=== PATIENT | female | born 1990 | race Caucasian/White ===

== ENCOUNTER 2016-03-13 20:04 | Emergency (ER) | payer BC ==
[2016-03-13] MEDS ORDERED: EPINEPHRINE INJ/PF 1 MG/1 ML AMPULE ONE ×2 (20:12→20:59)
[2016-03-13] MEDS ORDERED: PROCHLORPERAZINE EDISYLATE INJ 10 MG/2 ML VIAL ONE (20:21)
[2016-03-13] MEDS ORDERED: FAMOTIDINE INJ/PF 20 MG/2 ML SDV IV ONE ×2 (20:22)
[2016-03-13] MEDS ORDERED: DIPHENHYDRAMINE HCL 50 MG/ML VIAL ONE (20:22)
[2016-03-13] MEDS ORDERED: MORPHINE SULFATE 10 MG/ML INJ ONE ×2 (20:30→23:27)
--- NOTE | 2016-03-13 20:42 | ER Document Report ---
ED General - General Stated Complaint: POSSIBLE ALLERGIC REACTION Cannot obtain history due to: Unstable vital signs Notes: Patient is a 25-year-old female with past history of severe anaphylaxis secondary to peanuts who presents in anaphylactic shock. Patient was eating at a restaurant for her 's birthday when she abruptly developed hives, vomiting, and severe shortness of breath. She self-administered 2 epinephrine pens with minimal improvement of her symptoms. EMS inserted an epinephrine infusion which is moderately improved patient's shortness of breath and altered mental status. History is otherwise limited at time of arrival due to patient' s critical condition at time of arrival. - Related Data Allergies/Adverse Reactions: peanut Allergy (Verified 03/13/16 22:39) Past Medical History - General Information source: Patient, Emergency Med Personnel - Social History Smoking Status: Never Smoker Frequency of alcohol use: None Drug Abuse: None Lives with: Spouse/Significant other Family History: Reviewed & Not Pertinent Review of Systems - Review of Systems Notes: Limited secondary to patient's clinical condition HENT: Positive for throat pain Eyes: Negative for visual changes. Cardiovascular: Positive for chest pain. Respiratory: Positive for shortness of breath. Gastrointestinal: Positive for vomiting Skin: Positive for urticaria now resolved Neurological: Positive for headaches, negative for weakness or numbness. 10 point ROS negative except as marked above and in HPI. Physical Exam - Vital signs Vitals: Resp BP Pulse Ox 17 155/100 H 100 03/13/16 20:13 03/13/16 20:13 03/13/16 20:13 Interpretation: Hypertensive, Tachycardic, Tachypneic Notes: PHYSICAL EXAMINATION: GENERAL: Severely ill in appearance, in severe distress with shallow respirations, unable to phonate HEAD: Atraumatic, normocephalic. EYES: Pupils equal round and reactive to light, extraocular movements intact, sclera anicteric, conjunctiva are normal. ENT: No oropharyngeal edema Dry mucous membranes. NECK: Normal range of motion, supple without lymphadenopathy. Faint stridor LUNGS: Scattered wheezing in all lung hurd both inspiration and expiration. Tight air movement bilaterally. HEART: Regular tachycardia without murmurs ABDOMEN: Soft, nontender, normoactive bowel sounds. No guarding, no rebound. No masses appreciated. EXTREMITIES: Normal range of motion, no pitting or edema. No cyanosis. NEUROLOGICAL: No focal neurological deficits. Moves all extremities spontaneously and on command. PSYCH: Appropriately anxious given situation SKIN: Warm, Dry, normal turgor, no rashes or lesions noted. Course - Re-evaluation Re-evalutation: 03/13/16 20:10 Patient arrives, pale, diaphoretic, actively vomiting, start of this with wheezing and tight air movement bilaterally. She received 0.9 mg of IM epinephrine prior to arrival and an epinephrine drip containing a total of 1 mg of epinephrine was administered. This drip discontinued just prior to arrival and patient arrives decompensated from her improved status per EMS. Patient did have a run a super ventricular tachycardia during her epinephrine infusion. Based on patient's clinical appearance at time of arrival, tight air movement bilaterally, and hypertension, I mixed a epinephrine drip at the bedside 1 g per mL and opened this on the patient wide open. Patient had a rear seat Solu- Medrol prior to arrival. She had taken oral Benadryl and has vomited this up so 50 mg of IV Benadryl as well as 40 mg of IV famotidine given. IV fluids were initiated. A separate chest x-ray was obtained to exclude a foreign body in airway given that patient was currently eating at time of onset of symptoms. No evidence of obstruction or foreign body. Patient had an EKG performed as ST depressions were visible on the monitor. This does show diffuse ST depressions in multiple leads concerning for ischemia in the setting of a large amount of epinephrine. I attempted to discontinue the epinephrine infusion due to these findings and patient's relative clinical improvement that she rapidly became hypotensive again requiring restarting epinephrine infusion. 2039-due to clinical improvement, epinephrine infusion was again discontinued. After less than 5 minutes of discontinuation of the pleural effusion patient's blood pressure again dropped into the 90s systolic and she became more altered. Increased wheezing and decreased air movement noted. Epinephrine infusion restarted. She is currently receiving an epinephrine nebulizer. She remains critically ill at this time but is continuing to protect her airway and does not have any evidence of oral pharyngeal edema at this time. 03/13/16 20:59 Formal epinephrine drip will be started at this time. Patient remains stable at this time on a continuous infusion of approximately take 2 mcg/m although this would be more formally established momentarily after formal infusion is started. Patient and her updated on her ongoing critical status. 03/13/16 22:29 Patient appears dramatically improved at this time. Her drip is at 5 at this time but will be down titrated to. Airways clear, no wheezing or tight movement. Blood pressure normal and she no longer has any ST depressions on alarm security or surveillance monitor. Repeat EKG will be obtained. 03/13/16 22:33 Troponin is elevated at 1.2. Patient denies any chest pain. EKG changes improved at this time but continues to show ST depressions in V3-5. Patient is maintaining BP and work of breathing at this time on 2 mcg/min. I spoke with cardiology at [facility], [facility]) who does not feel patient needs to come to a cardiology service. I agree and think she would be best served on medical service with cardiolgoy consult. I also spoke with the ICU attending. 03/14/16 01:41 Transport has arrived. Patient continues to be hemodynamically stable on 2mcg/ min. Stable for transport at this time. - Vital Signs Vital signs: Temp Pulse Resp BP Pulse Ox 98.7 F 26 H 109/70 98 03/13/16 23:35 03/14/16 01:31 03/14/16 01:31 03/14/16 01:31 - Laboratory Result Diagrams: 03/13/16 21:20 03/13/16 21:20 Laboratory results interpreted by me: 03/13/16 03/13/16 03/13/16 20:16 21:20 21:20 WBC 29.3 H Hgb 11.6 L Hct 34.9 L Plt Count 582 H Seg Neuts % (Manual) 87 H Lymphocytes % (Manual) 9 L Abs Neuts (Manual) 25.5 H Potassium 3.0 L* Chloride 108 H Glucose 175 H POC Glucose 169 H - Diagnostic Test Radiology reviewed: Image reviewed, Reports reviewed Radiology results interpreted by me: 03/13/16 22:53 Chest x-ray: No acute infiltrate or foreign body - EKG Interpretation by Me Additional EKG results interpreted by me: 03/14/16 03:33 Sinus tachycardia. Rate 108. ST depressions in V4 through 5. QTC 467. Critical Care Note - Critical Care Note Total time excluding time spent on procedures (mins): 95 Comments: Critical care time spent obtaining history from patient or surrogate, discussions with consultants, development of treatment plan with patient or surrogate, evaluation of patient's response to treatment, examination of patient , ordering and performing treatments and interventions, ordering and review of laboratory studies, re-evaluation of patient's condition, ordering and review of radiographic studies and review of old charts Discharge - Discharge Clinical Impression: NSTEMI (non-ST elevated myocardial infarction) Anaphylactic shock Qualifiers: Encounter type: initial encounter Qualified Code(s): T78.2XXA - Anaphylactic shock, unspecified, initial encounter Condition: Critical Disposition: [facility]
[2016-03-13 21:50] LABS: HEMATOCRIT 34.9 % (36.0-47.0); HEMOGLOBIN 11.6 g/dL (12.0-15.5); HGB HCT DIFFERENCE -0.1; MEAN CORPUSCULAR HEMOGLOBIN 27.2 pg (27.0-33.4); MEAN CORPUSCULAR HGB CONC 33.3 g/dL (32.0-36.0); MEAN CORPUSCULAR VOLUME 82 fl (80-97); RED BLOOD COUNT 4.28 10^6/uL (3.72-5.28); RED CELL DISTRIBUTION WIDTH 13.4 % (11.5-14.0); WHITE BLOOD COUNT 29.3 10^3/uL (4.0-10.5)
[2016-03-13 22:03] LABS: BASOPHILS % (MANUAL) 0 % (0-2); EOSINOPHILS % (MANUAL) 0 % (0-6); LYMPHOCYTES % (MANUAL) 9 % (13-45); TOTAL CELLS COUNTED 100
[2016-03-13 22:04] LABS: TOXIC GRANULATION SLIGHT
[2016-03-13 22:06] LABS: BLOOD UREA NITROGEN 11 mg/dL (7-20); CARBON DIOXIDE 22 mmol/L (22-30); CHLORIDE 108 mmol/L (98-107); CREATININE RESULT 0.59 mg/dL (0.52-1.25)
[2016-03-13 22:07] LABS: ANION GAP 15 (5-19); CALCIUM 8.5 mg/dL (8.4-10.2); GLUCOSE 175 mg/dL (75-110); SODIUM 144.9 mmol/L (137-145)
[2016-03-14] MEDS ORDERED: KETOROLAC TROMETHAMINE INJ/PF 30 MG/1 ML SDV ONE (01:06)
[2016-03-14 01:33] VITALS: BP 109/70
[2016-03-14] MEDS ORDERED: HYDROMORPHONE HCL INJ/PF 2 MG/ML AMPULE IV ONE (01:42)
--- NOTE | 2016-03-14 15:01 | EKG REPORT ---
SEVERITY:- ABNORMAL ECG - SINUS TACHYCARDIA MULTIPLE ATRIAL PREMATURE COMPLEXES ABERRANT COMPLEX REPOL ABNRM, PROBABLE ISCHEMIA, DIFFUSE LEADS : Confirmed by: Dutch Chacon 14-Mar-2016 15:00:33
--- NOTE | 2016-03-14 15:01 | EKG REPORT ---
SEVERITY:- ABNORMAL ECG - SINUS TACHYCARDIA REPOL ABNRM SUGGESTS ISCHEMIA, DIFFUSE LEADS : Confirmed by: Dutch Chacon 14-Mar-2016 15:00:22
== END 2016-03-14 01:30 | disposition short-term general hospital (02) ==
LOC: MERGE 20:04 → ER 20:04
DX: I21.4 Non-ST elevation (NSTEMI) myocardial infarction (principal); T78.2XXA Anaphylactic shock, unspecified, initial encounter; L50.9 Urticaria, unspecified; R06.02 Shortness of breath
CPT/HCPCS: 93005; 96376; 99291; 99292; 96372; 51701; 51702; 96374; 96375; 36415; 82962; 85025; 81025; 80048; 84484; 71010; 93010; J1200; J0171; J1885; J2270; J1170; J0780; S0028

== ENCOUNTER 2016-05-30 17:31 | Emergency (ER) | payer BC ==
[2016-05-30 17:36] VITALS: BP 124/80
--- NOTE | 2016-05-30 17:39 | ER Document Report ---
ED Medical Screen (RME) - General Chief Complaint: Cyst Stated Complaint: POSSIBLE CYST ABOVE LEFT EYE Notes: Patient here with cyst above left eye for about 3 days. Had one above right eye in past which had an odd bacteria which required her to see an infectious disease doctor in [place]. Complains of pain, redness and swelling to area. I have greeted and performed a rapid initial assessment of this patient. A comprehensive ED assessment and evaluation of the patient, analysis of test results and completion of the medical decision making process will be conducted by additional ED providers. TRAVEL OUTSIDE OF THE [place] IN LAST 30 DAYS: No - Related Data Allergies/Adverse Reactions: tree nut [Tree Nut] Allergy (Severe, Verified 08/17/14 20:36) banana [Banana] Allergy (Unknown, Verified 08/14/14 08:25) latex [Latex] Allergy (Verified 08/14/14 08:25) RASH? UNKNOWN peanut Allergy (Verified 03/13/16 22:39) Penicillins Allergy (Verified 08/14/14 08:25) Sulfa (Sulfonamide Antibiotics) Allergy (Verified 08/14/14 08:25) unknown peanuts Allergy (Severe, Uncoded 08/17/14 20:36) Past Medical History Pulmonary Medical History: Reports: Hx Asthma, Hx Pneumonia Neurological Medical History: Renal/ Medical History: Reports: Hx Kidney Stones, Hx Ovarian Cysts Musculoskeltal Medical History: Reports Hx Musculoskeletal Trauma Psychiatric Medical History: Reports: Hx Anxiety, Hx Bipolar Disorder, Hx Depression Traumatic Medical History: Reports: Hx Fractures, Hx Pneumothorax Past Surgical History: Reports: Hx Abdominal Surgery, Hx Cholecystectomy, Hx Nose Surgery - sinus, Hx Oral Surgery - Immunizations Immunizations up to date: Yes Hx Diphtheria, Pertussis, Tetanus Vaccination: Yes Physical Exam - Vital signs Vitals: Temp Pulse Resp BP Pulse Ox 98.2 F 79 20 124/80 99 05/30/16 17:36 05/30/16 17:36 05/30/16 17:36 05/30/16 17:36 05/30/16 17:36 - Skin Notes: Red swollen area noted at left bridge of nose. Course - Vital Signs Vital signs: Temp Pulse Resp BP Pulse Ox 98.2 F 79 20 124/80 99 05/30/16 17:36 05/30/16 17:36 05/30/16 17:36 05/30/16 17:36 05/30/16 17:36
[2016-05-30] MEDS ORDERED: DOXYCYCLINE HYCLATE 100 MG TABLET PO ONE (19:44)
[2016-05-30] MEDS ORDERED: CEPHALEXIN 500 MG CAPSULE PO ONE (19:44)
[2016-05-30] MEDS ORDERED: HYDROCODONE/ACETAMINOPHEN 5-325 MG 6 TAB/DSPK PO PRN (19:45)
--- NOTE | 2016-05-30 19:49 | ER Document Report ---
ED General - General Chief Complaint: Cyst Stated Complaint: POSSIBLE CYST ABOVE LEFT EYE Notes: Patient is a 25-year-old female who presents with concerns of increasing pain to the left superior portion of her nose with pain radiating around the left eye. States she's had similar symptoms in the past and she's had postorbital cellulitis that often start secondary to her having cystic acne. She has not done anything to try to treat her symptoms. Touching the area worsens the pain which she does describes a constant, severe, stabbing pain. Denies any change to her vision. No vomiting, fever or altered mental status. She has not seen her primary care doctor regarding today's concerns. TRAVEL OUTSIDE OF THE [place] IN LAST 30 DAYS: No - Related Data Allergies/Adverse Reactions: tree nut [Tree Nut] Allergy (Severe, Verified 05/30/16 18:50) banana [Banana] Allergy (Unknown, Verified 05/30/16 18:50) latex [Latex] Allergy (Verified 05/30/16 18:50) RASH? UNKNOWN peanut Allergy (Verified 05/30/16 18:50) Penicillins Allergy (Verified 05/30/16 18:50) Quinolones Allergy (Verified 05/30/16 18:50) Sulfa (Sulfonamide Antibiotics) Allergy (Verified 05/30/16 18:50) unknown peanuts Allergy (Severe, Uncoded 05/30/16 18:50) Past Medical History - General Information source: Patient - Social History Smoking Status: Never Smoker Chew tobacco use (# tins/day): No Frequency of alcohol use: None Drug Abuse: None Lives with: Spouse/Significant other Family History: Arthritis, Malignancy, CAD, CVA, DM, Hyperlipidemia, Hypertension, Reviewed & Not Pertinent, Thyroid Disfunction Patient has suicidal ideation: No Patient has homicidal ideation: No Pulmonary Medical History: Reports: Hx Asthma, Hx Pneumonia Neurological Medical History: Renal/ Medical History: Reports: Hx Kidney Stones, Hx Ovarian Cysts. Denies: Hx Peritoneal Dialysis Musculoskeltal Medical History: Reports Hx Musculoskeletal Trauma Psychiatric Medical History: Reports: Hx Anxiety, Hx Bipolar Disorder, Hx Depression Traumatic Medical History: Reports: Hx Fractures, Hx Pneumothorax Past Surgical History: Reports: Hx Abdominal Surgery, Hx Cholecystectomy, Hx Nose Surgery - sinus, Hx Oral Surgery - Immunizations Immunizations up to date: Yes Hx Diphtheria, Pertussis, Tetanus Vaccination: Yes Review of Systems - Review of Systems Notes: Constitutional: Negative for fever. HENT: Negative for sore throat. Eyes: Positive for pain on the left eye Cardiovascular: Negative for chest pain. Respiratory: Negative for shortness of breath. Gastrointestinal: Negative for abdominal pain, vomiting or diarrhea. Genitourinary: Negative for dysuria. Musculoskeletal: Negative for back pain. Skin: Negative for rash. Neurological: Negative for headaches, weakness or numbness. 10 point ROS negative except as marked above and in HPI. Physical Exam - Vital signs Vitals: Temp Pulse Resp BP Pulse Ox 98.2 F 79 20 124/80 99 05/30/16 17:36 05/30/16 17:36 05/30/16 17:36 05/30/16 17:36 05/30/16 17:36 Interpretation: Normal Notes: PHYSICAL EXAMINATION: GENERAL: Well-appearing, well-nourished and in no acute distress. HEAD: Atraumatic, normocephalic. EYES: Pupils equal round and reactive to light, extraocular movements intact, no proptosis sclera anicteric, conjunctiva are normal. No proptosis. ENT: nares patent, oropharynx clear without exudates. Moist mucous membranes. NECK: Normal range of motion, supple without lymphadenopathy LUNGS: Breath sounds clear to auscultation bilaterally and equal. No wheezes rales or rhonchi. HEART: Regular rate and rhythm without murmurs ABDOMEN: Soft, nontender, normoactive bowel sounds. No guarding, no rebound. No masses appreciated. EXTREMITIES: Normal range of motion, no pitting or edema. No cyanosis. NEUROLOGICAL: No focal neurological deficits. Moves all extremities spontaneously and on command. PSYCH: Normal mood, normal affect. SKIN: Warm, Dry, normal turgor, there is a small raised, cystic lesion on the superior portion of the left nasal bridge with some mild surrounding erythema. Course - Re-evaluation Re-evalutation: 05/30/16 19:45 Patient presents with a cystic lesion that appears to be resulting in a cellulitis spreading around the left periorbital region consistent with a mild periorbital cellulitis. No orbital involvement, proptosis, conjunctival injection. Extraocular motions are intact. No evidence of entrapment. Pupillary response is normal. Patient was started on cephalexin and doxycycline to cover for both MRSA and strep. At this time will discharge with return precautions and follow-up recommendations. Verbal discharge instructions given a the bedside and opportunity for questions given. Medication warnings reviewed. Patient is in agreement with this plan and has verbalized understanding of return precautions and the need for primary care follow-up in the next 24-72 hours. - Vital Signs Vital signs: Temp Pulse Resp BP Pulse Ox 98.2 F 79 20 124/80 99 05/30/16 17:36 05/30/16 17:36 05/30/16 17:36 05/30/16 17:36 05/30/16 17:36 Discharge - Discharge Clinical Impression: Periorbital cellulitis Qualifiers: Laterality: left Qualified Code(s): L03.213 - Periorbital cellulitis Condition: Good Disposition: HOME, SELF-CARE Additional Instructions: The rash is likely due to infection of your skin. You need to take the antibiotics as prescribed. Do not stop even if the rash goes away until you have completed all the antibiotics. You need to return to emergency department if the redness spreads outside of this area by more than 2 cm in any direction. You should also return if you develop fevers with temperature greater than 101 , you develop worsening of the swelling around her eye, persistent vomiting, worsening pain, or have any other symptoms that are concerning to you. Prescriptions: Cephalexin Monohydrate [Keflex 500 mg Capsule] 500 mg PO QID #28 capsule Doxycycline Hyclate 100 mg PO BID #14 capsule Referrals: GALILEO SILVA PA-C [Primary Care Provider] - Follow up in 3-5 days
== END 2016-05-30 20:20 | disposition home or self-care (01) ==
LOC: ER 17:31
DX: L03.213 Periorbital cellulitis (principal)
CPT/HCPCS: 99282

== ENCOUNTER 2016-08-02 21:00 | Observation (INO) | payer BC ==
[2016-08-02] MEDS ORDERED: NORMAL SALINE 1000 ML 1,000 ML IV ONE (21:56)
--- NOTE | 2016-08-02 22:25 | ER Document Report ---
ED General - General Chief Complaint: Overdose Stated Complaint: POSSIBLE OVERDOSE Time Seen by Provider: 08/02/16 21:53 Mode of Arrival: Ambulatory Information source: Patient, Relative Notes: This is a 25-year-old female who presents with altered mental status. Majority of the history is obtained from the as patient is confused. Patient has been states that when he left to go to work this morning patient seemed fine although she had been up most of the night. Around noon he received a phone call from the patient's sister stating she was concerned because the patient was slurring her words and seemed confused. He then called the patient and told her to lay down and sleep it off. He states that this has happened before when she is taking too much medication and he thought she would be fine by just sleeping. He returned home at 1600 and noticed that she was still altered and talking out of her head. He states that he then had to run a few errands and she was left alone and could have possibly taken more medication, he is not sure. He states that this has happened multiple times in the past with overdose. He does not believe that she intends to harm herself with the overdose but he is not sure. Patient denies overdose however she is unable to complete a train of thought. She is confused. She talks about being in high school and multiple other stories which patient's says are nonsense and did not make sense. Patient denies any pain. She has had no nausea or vomiting. She is on multiple prescription medications to include Prozac, trazodone, Lamictal, diazepam, OxyContin, Joice, clonidine, and Phenergan. Of these medications it appears that the Phenergan, clonidine, and diazepam were filled 2 days ago and have many pills missing. TRAVEL OUTSIDE OF THE [place] IN LAST 30 DAYS: No - Related Data Allergies/Adverse Reactions: tree nut [Tree Nut] Allergy (Severe, Verified 05/30/16 18:50) banana [Banana] Allergy (Unknown, Verified 05/30/16 18:50) latex [Latex] Allergy (Verified 05/30/16 18:50) RASH? UNKNOWN peanut Allergy (Verified 05/30/16 18:50) Penicillins Allergy (Verified 05/30/16 18:50) Quinolones Allergy (Verified 05/30/16 18:50) Sulfa (Sulfonamide Antibiotics) Allergy (Verified 05/30/16 18:50) unknown peanuts Allergy (Severe, Uncoded 05/30/16 18:50) Home Medications: Current Home Medications Chlorzoxazone 500 mg PO BID PRN 08/03/16 [History] Clonidine HCl [Clonidine HCl] 0.1 mg PO TID PRN 08/03/16 [History] Diazepam [Diazepam] 5 mg PO TID PRN 08/03/16 [History] Diphenhydramine HCl [Banophen] 25 mg PO DAILY PRN 08/03/16 [History] Promethazine HCl [Promethazine HCl] 25 mg PO Q6H PRN 08/03/16 [History] Trazodone HCl 50 mg PO QHS 08/03/16 [History] Past Medical History - Social History Smoking Status: Unknown if Ever Smoked Chew tobacco use (# tins/day): No Frequency of alcohol use: None Drug Abuse: None Family History: Arthritis, Malignancy, CAD, CVA, DM, Hyperlipidemia, Hypertension, Reviewed & Not Pertinent, Thyroid Disfunction Pulmonary Medical History: Reports: Hx Asthma, Hx Pneumonia Neurological Medical History: Renal/ Medical History: Reports: Hx Kidney Stones, Hx Ovarian Cysts. Denies: Hx Peritoneal Dialysis Musculoskeltal Medical History: Reports Hx Musculoskeletal Trauma Psychiatric Medical History: Reports: Hx Anxiety, Hx Bipolar Disorder, Hx Depression Traumatic Medical History: Reports: Hx Fractures, Hx Pneumothorax Past Surgical History: Reports: Hx Abdominal Surgery, Hx Cholecystectomy, Hx Nose Surgery - sinus, Hx Oral Surgery - Immunizations Immunizations up to date: Yes Hx Diphtheria, Pertussis, Tetanus Vaccination: Yes Review of Systems - Review of Systems -: Yes ROS unobtainable due to patient's medical condition Physical Exam - Vital signs Vitals: Temp Pulse Resp BP Pulse Ox 97.5 F 97 20 98/58 L 100 08/02/16 21:16 08/02/16 21:16 08/02/16 21:16 08/02/16 21:16 08/02/16 21:16 - Notes Notes: PHYSICAL EXAMINATION: GENERAL: Alert adult female who is conversant but confused. No acute distress HEAD: Atraumatic, normocephalic. EYES: Pupils equal round and reactive to light, extraocular movements intact, sclera anicteric, conjunctiva are normal. ENT: nares patent, Moist mucous membranes. NECK: Normal range of motion, supple without lymphadenopathy LUNGS: Breath sounds clear to auscultation bilaterally and equal. No wheezes rales or rhonchi. HEART: Regular rate and rhythm without murmurs ABDOMEN: Soft, nontender, normoactive bowel sounds. EXTREMITIES: Normal range of motion NEUROLOGICAL: alert and oriented to person. She knows she is in a hospital, but cannot state the city. She appears confused and has difficulty keeping train of thought. Motor +5/5 bilateral upper and lower extremities. PSYCH: denies suicidal ideation, no AVH SKIN: Warm, Dry, normal turgor, no rashes or lesions noted. Course - Re-evaluation Re-evalutation: 08/03/16 02:28 Patient reexamined. She has remained hemodynamically stable although her systolic blood pressure has remained in the 90s. She is still confused and per her family is still acting altered. She has difficulty completing her train of thought. She is still unable to tell me how many pills and knows what medication she took today and is also unable to explain the missing pills. She does deny suicidal ideation or intent - Vital Signs Vital signs: Temp Pulse Resp BP Pulse Ox 97.5 F 97 18 92/65 L 98 08/02/16 21:16 08/02/16 21:16 08/03/16 02:00 08/03/16 02:00 08/03/16 02:00 - Laboratory Result Diagrams: 08/02/16 22:15 08/02/16 22:15 Laboratory results interpreted by me: 08/02/16 08/02/16 22:15 22:15 Hgb 11.4 L Hct 34.2 L Salicylates < 1.0 L Acetaminophen < 10 L Discharge - Discharge Clinical Impression: Medication overdose Qualifiers: Encounter type: initial encounter Injury intent: undetermined intent Qualified Code(s): T50.904A - Poisoning by unspecified drugs, medicaments and biological substances, undetermined, initial encounter Altered mental status Qualifiers: Altered mental status type: disorientation Qualified Code(s): R41.0 - Disorientation, unspecified Condition: Stable Disposition: ADMITTED INPATIENT Admitting Provider: Hospitalist - Dr. Jean Unit Admitted: ICU
[2016-08-02 22:33] LABS: ABSOLUTE LYMPHOCYTES (AUTO) 1.6 10^3/uL (0.5-4.7); ABSOLUTE MONOCYTES (AUTO) 0.7 10^3/uL (0.1-1.4); ABSOLUTE NEUT (AUTO) 5.4 10^3/uL (1.7-8.2); BASOPHILS % (AUTO) 0.6 % (0-2); EOSINOPHILS % (AUTO) 0.3 % (0-6); HEMATOCRIT 34.2 % (36.0-47.0); HEMOGLOBIN 11.4 g/dL (12.0-15.5); LYMPHOCYTES % (AUTO) 20.3 % (13-45); MEAN CORPUSCULAR HEMOGLOBIN 28.2 pg (27.0-33.4); MEAN CORPUSCULAR HGB CONC 33.4 g/dL (32.0-36.0); MEAN CORPUSCULAR VOLUME 84 fl (80-97); RED BLOOD COUNT 4.05 10^6/uL (3.72-5.28); RED CELL DISTRIBUTION WIDTH 13.9 % (11.5-14.0); SEGMENTED NEUTROPHILS % (AUTO) 69.8 % (42-78); WHITE BLOOD COUNT 7.7 10^3/uL (4.0-10.5)
[2016-08-02 22:42] LABS: PROTHROMBIN TIME 11.6 SEC (11.4-15.4)
[2016-08-02 22:43] LABS: PARTIAL THROMBOPLASTIN TIME 28.3 SEC (23.5-35.8)
[2016-08-02 22:46] LABS: ALANINE AMINOTRANSFERASE 44 U/L (9-52); ALKALINE PHOSPHATASE 72 U/L (38-126); ANION GAP 12 (5-19); ASPARTATE AMINO TRANSFERASE 22 U/L (14-36); BILIRUBIN,DIRECT 0.3 mg/dL (0.0-0.4); BILIRUBIN,TOTAL 0.3 mg/dL (0.2-1.3); BLOOD UREA NITROGEN 10 mg/dL (7-20); CALCIUM 9.1 mg/dL (8.4-10.2); CARBON DIOXIDE 25 mmol/L (22-30); CHLORIDE 103 mmol/L (98-107); CREATINE KINASE 35 U/L (30-135); CREATININE RESULT 0.57 mg/dL (0.52-1.25); GLUCOSE 98 mg/dL (75-110); MAGNESIUM 1.8 mg/dL (1.6-2.3); POTASSIUM 3.7 mmol/L (3.6-5.0); TOTAL PROTEIN 6.8 g/dL (6.3-8.2)
[2016-08-02 22:47] LABS: ALCOHOL < 10 mg/dL (NONE DETECTED)
--- NOTE | 2016-08-02 22:54 | RADIOLOGY REPORT (SQ) ---
EXAM DESCRIPTION: CHEST SINGLE VIEW COMPLETED DATE/TIME: 08/02/2016 10:23 pm REASON FOR STUDY: overdose, AMS COMPARISON: 05/11/2015 EXAM PARAMETERS: NUMBER OF VIEWS: One view. TECHNIQUE: Single frontal radiographic view of the chest acquired. RADIATION DOSE: NA LIMITATIONS: None. FINDINGS: LUNGS AND PLEURA: No opacities, masses or pneumothorax. No pleural effusion. MEDIASTINUM AND HILAR STRUCTURES: No masses. Contour normal. HEART AND VASCULAR STRUCTURES: Heart normal in size. Normal vasculature. BONES: No acute findings. HARDWARE: None in the chest. OTHER: No other significant finding. IMPRESSION: NO ACUTE RADIOGRAPHIC FINDING IN THE CHEST. TECHNICAL DOCUMENTATION: JOB ID: [id number]
[2016-08-02 23:52] LABS: APPEARANCE,URINE CLEAR; BILIRUBIN,URINE NEGATIVE (NEGATIVE); GLUCOSE, URINE NEGATIVE (NEGATIVE); KETONES,URINE NEGATIVE (NEGATIVE); LEUKOCYTE ESTERASE,URINE NEGATIVE (NEGATIVE); NITRITE,URINE NEGATIVE (NEGATIVE); PROTEIN,URINE NEGATIVE (NEGATIVE); UROBILINOGEN,URINE NEGATIVE mg/dL (<2.0)
[2016-08-03 00:06] LABS: URINE BARBITURATES SCREEN NEGATIVE; URINE METHADONE SCREEN NEGATIVE; URINE OPIATES LOW NEGATIVE; URINE PHENCYCLIDINE SCREEN NEGATIVE
[2016-08-03] MEDS ORDERED: NORMAL SALINE 1000 ML 1,000 ML IV ONE (03:05)
[2016-08-03 03:31] LABS: ADD ON TESTING BLD IN LAB ACKNOWLEDGE
[2016-08-03 03:55] LABS: VENOUS BLOOD BASE EXCESS -0.5 mmol/L; VENOUS BLOOD HCO3 24.6 mmol/L (20-32); VENOUS BLOOD PCO2 42.2 mmHg (35-63); VENOUS BLOOD PH 7.38 (7.30-7.42)
[2016-08-03] MEDS ORDERED: MAG HYDROX/AL HYDROX/SIMETH SUSP 30 ML UDCUP PO PRN (04:38)
[2016-08-03] MEDS ORDERED: ACETAMINOPHEN 325 MG TABLET PO PRN (04:38)
[2016-08-03] MEDS ORDERED: IPRATROPIUM/ALBUTEROL 0.5-2.5 MG/3 ML AMPUL NEB PRN (04:38)
[2016-08-03] MEDS ORDERED: POTASSI CL 20 MEQ/D5NS 1L 1,000 ML IV PRN (04:38)
[2016-08-03 05:20] LABS: ABSOLUTE LYMPHOCYTES (AUTO) 1.4 10^3/uL (0.5-4.7); ABSOLUTE MONOCYTES (AUTO) 0.5 10^3/uL (0.1-1.4); BASOPHILS % (AUTO) 0.3 % (0-2); EOSINOPHILS % (AUTO) 0.6 % (0-6); HEMATOCRIT 29.6 % (36.0-47.0); HGB HCT DIFFERENCE 0.4; LYMPHOCYTES % (AUTO) 23.2 % (13-45); MEAN CORPUSCULAR HEMOGLOBIN 28.4 pg (27.0-33.4); MEAN CORPUSCULAR HGB CONC 33.7 g/dL (32.0-36.0); MEAN CORPUSCULAR VOLUME 84 fl (80-97); MONOCYTES % (AUTO) 8.8 % (3-13); RED BLOOD COUNT 3.51 10^6/uL (3.72-5.28); RED CELL DISTRIBUTION WIDTH 14.2 % (11.5-14.0); SEGMENTED NEUTROPHILS % (AUTO) 67.1 % (42-78)
[2016-08-03 05:34] LABS: ANION GAP 9 (5-19); BLOOD UREA NITROGEN 9 mg/dL (7-20); CALCIUM 8.2 mg/dL (8.4-10.2); CARBON DIOXIDE 22 mmol/L (22-30); CHLORIDE 110 mmol/L (98-107); CREATININE RESULT 0.51 mg/dL (0.52-1.25); GLUCOSE 83 mg/dL (75-110); POTASSIUM 3.8 mmol/L (3.6-5.0); SODIUM 140.8 mmol/L (137-145)
--- NOTE | 2016-08-03 05:41 | PDOC H&P ---
History of Present Illness Admission Date/PCP: 08/03/16 03:20 GALILEO MEEHAN Patient complains of: AMS History of Present Illness: BERNICE DAVENPORT is a 25 year old female with underlying bipolar disorder , anxiety and depression, but repeatedly by her account, no thoughts of hurting herself or others, who presents to the emergency room for evaluation of above complaint. Patient has been discussed with emergency room physician who evaluated the patient. Patient herself is somewhat altered in her speech, with slight slurring of speech, and does not remember the events over the last 24 hours or so that led her to being brought to the emergency room, but seems to provide accurate information related to chronic health issues, family history etc. is present at her side, with her approval, and agrees with the majority of her statements and answers to basic questions. She reportedly had been up most of the evening on August 01. However, when left to go to work the morning of the , she seemed fine. Approximately noon on the , he received a call from the patient's sister stating that the patient was slurring her words and seemed confused. He called the patient and told her to lie down and "sleep it off." This reportedly has happened a number of times in the past when she has taken "too much medication; " he felt she would be "fine by just sleeping." He returned home at 4 PM and noticed that she was still confused and "talking out of her head." Of note, these are statements made by the emergency room physician in her notes. States he had to run a few errands and left her alone. States she possibly could have taken more medication, but he was not sure. There has been some nausea but no vomiting. No fever or chills. No diarrhea or dysuria. Blood pressures have been in the low to upper 90s, but have risen acceptably with 2 L bolus of saline. Patient is uncertain as to exactly which medication she did take. Medication bottles were brought to the hospital, including a prescription for 5 mg of diazepam, filled on the first of this month, #21 tablets, empty; clonidine, 0.1 mg tablets filled on the first of this month, #21 tablets, with only 7 remaining ; and Phenergan 25 mg tablets #30 filled on the first of this month, with only 18 left. Diazepam schedule 1 p.o. 3 times daily as needed. Clonidine prescription is for 1 tablet 3 times daily as needed. Phenergan prescription is for 1 tablet every 6 hours as needed. Prescription medications also include chlorzoxazone 500 mg twice daily as needed #60 filled July 15, 2016, empty. OxyContin 15 mg 1 p.o. every 12 hours # 60 refill July 08, 2016, empty. [place] 5-325 1 p.o. twice daily as needed #60 filled July 15, 2016, empty. Other bottles include Prozac 40 mg 1 p.o. nightly #60 filled July 18, 2016, with 45 tablets left. Trazodone 50 mg p.o. nightly #30 filled July 18, 2016, #15 left. Lamotrigine, which patient takes for her bipolar disorder, 200 mg p.o. nightly #30 filled July 18, 2016, #15 left. Patient does have a distant history of an intentional overdose while in college . She has never been involuntarily committed. Of interest, patient and were in [facility] [place] [facility] 9 days ago. She fell "3 times,", with patient subsequently taken to the emergency room at [facility] with complaints of chest pain. According to , there was concern that she was having a cardiac problem and she was transferred subsequently from [facility] emergency room to [facility] in [place]. She stayed there approximately 36 hours and had a number of tests, including echocardiogram which were all reportedly negative. Did not have a cardiac stress test. states patient was given a prescription for Dilaudid by the [facility] emergency room, but it was "never filled." Still having anterior chest pain that she experienced after falling, as noted above. Laboratory results are listed in [facility] [employer] and are reviewed. X-ray summary results are listed below, with full report(s) reviewed. EKG reviewed. Social history/personal habits: . No children. Unemployed. No use of alcohol tobacco or illicit drugs. Allergies/adverse reactions are listed in [employer] and are reviewed. Home medications initially autopopulated into [facility] may not accurately reflect patient's true medications, dosages, and/or frequencies. Nursing staff to reconcile medications. REVIEW OF SYSTEMS: Constitutional: No fever or chills. Eyes: Wears glasses ENT: No swallowing problems or complaints. Denies hearing loss. Pulmonary: No current complaints. Cardiovascular: See history and present illness. Gastrointestinal: See history and present illness. Skin: No current complaints, including rashes. Hematologic: Easy bruising. Neurologic: No current complaints, including numbness or tingling. Musculoskeletal: No current or chronic joint complaints, such as arthritis. Psychiatric: Notes mild anxiety and depression. Again, denies any thoughts of hurting herself or others. Endocrine: No current complaints, including polyuria. Genitourinary: No current complaints, including dysuria. PHYSICAL EXAMINATION: 5 feet tall. 70.1 kg. BMI 30.2 kg/m. Blood pressure 102/71. Pulse 83 and regular. 100% saturation on room air. Respirations are 19 and unlabored. Temperature 97.5. Slightly overweight otherwise well-nourished well-developed female, appearing approximately her stated age. Awake, though slight slurring of speech. Cooperative. is present at her side; patient approves. Female emergency room nurse [place] is present. Skin is warm and dry. No grossly obvious evidence of rash in areas of skin examined. No subcutaneous nodules palpated. ENT: Hearing grossly normal to normal conversation. Tongue midline on protrusion pink and slightly tacky. Eyes: No scleral icterus. Pupils equal and reactive to light at 6 mm. One [place] conjunctivae. No raccoon eyes. Neck is supple and nontender to gentle active range of motion and palpation. Midline trachea. No palpable thyroid nodule mass enlargement or tenderness. Lymphatic: No palpable cervical or clavicular nodes. Neck and lymphatic exams limited by patient body habitus. Psychiatric: Reasonable insight into chronic medical issues. Oriented to time location, but again, does not remember the events that led her to being brought to the emergency room. Lungs: Auscultation reveals clear and equal breath sounds bilaterally. No use of accessory respiratory muscles. Cardiovascular: Heart regular rate and rhythm, without gallop murmur or rub. No carotid or abdominal aortic bruits. No ankle or pedal edema. Faintly palpable dorsalis pedis pulses. Abdomen:soft slightly obese nontender with positive bowel sounds. Unable to adequately evaluate abdomen for masses or organomegaly due to body habitus. Compression of both her upper abdomen and sternum reproduces her previously noted chest discomfort. Extremities: Hands and feet are warm and dry. No calf tenderness to compression. No grossly obvious visual evidence of calf swelling. Gentle manipulation of upper and lower extremities fails to reveal any obvious evidence of injury or instability to involved major joints. Neurologic: Cranial Nerves II through XII are grossly intact. Light touch intact at face, upper and lower extremities. Motor function of major muscle groups upper and lower extremities 5 over 5 and symmetric. Patellar reflexes absent. Absent Babinski. No rigidity. No nystagmus. No ankle clonus. Past Medical History Cardiac Medical History: Reports: Myocardial Infarction - Previous "type II" ID. Denies: Congestive Heart Failure, DVT, Hyperlipidema, Hypertension, Pulmonary Embolism Pulmonary Medical History: Reports: Asthma, Pneumonia Denies: Chronic Obstructive Pulmonary Disease (COPD), Sleep Apnea EENT Medical History: Reports: Eyes - Glasses Denies: Ears, Throat Neurological Medical History: Reports: Seizures - Seizure 2 at 15 years of age , never on antiepileptic. Denies: Hemorrhagic CVA, Ischemic CVA Endocrine Medical History: Denies: Diabetes Mellitus Type 1, Diabetes Mellitus Type 2, Hyperthyroidism, Hypothyroidism Renal/ Medical History: Reports: Nephrolithiasis - History of same., Other - Occasional bladder infection. GI Medical History: Denies: Cirrhosis, Gastroesophageal Reflux Disease, Hepatitis, Peptic Ulcer Disease Musculoskeltal Medical History: Reports: Arthritis Skin Medical History: Reports: None Psychiatric Medical History: Reports: Bipolar Disorder, Depression, General Anxiety Disorder Denies: Alcohol Dependency, Substance Abuse - Illicit drugs., Tobacco Dependency Traumatic Medical History: Reports: Pneumothorax Hematology: Reports: Other - Easy bruising Denies: Anemia Infectious Medical History: Denies: Clostridium Difficile, Hepatitis B, Hepatitis C, Methicillin- Resistant Staph Aureus Past Surgical History Past Surgical History: Reports: Cholecystectomy Social History Information Source: Patient, Relative - , Emergency Med Personnel, [facility] Records Lives with: Spouse/Significant other Smoking Status: Unknown if Ever Smoked Hx Recreational Drug Use: No Drugs: None Hx Prescription Drug Abuse: Yes - Suspected. - Advance Directive Resuscitation Status: Full Code Surrogate healthcare decision maker:: Family History Family History: Arthritis, Malignancy, CAD, CVA, DM, Hyperlipidemia, Hypertension, Reviewed & Not Pertinent, Thyroid Disfunction Parental Family History Reviewed: Yes - Father healthy. Mother hypertension. Children Family History Reviewed: NA Sibling(s) Family History Reviewed.: Yes - Brother with severe peanut allergy. Medication/Allergy Home Medications: RX: Acetaminophen [Tylenol 325 mg Tablet] 650 mg PO Q4HP PRN tablet 08/03/16 RX: Diazepam [Valium 5 mg Tablet] 5 mg PO Q8HP PRN 08/03/16 RX: Diphenhydramine HCl [Benadryl 25 mg Capsule] 25 mg PO Q6HP PRN 08/03/16 RX: Fluoxetine HCl [Prozac] 80 mg PO QHS 08/03/16 RX: Lamotrigine [Lamictal] 200 mg PO QHS 08/03/16 RX: Promethazine HCl [Phenergan 25 mg Tablet] 25 mg PO Q6HP PRN 08/03/16 RX: Trazodone HCl [Desyrel 50 mg Tablet] 50 mg PO QHS 08/03/16 Allergies/Adverse Reactions: tree nut [Tree Nut] Allergy (Severe, Verified 05/30/16 18:50) banana [Banana] Allergy (Unknown, Verified 05/30/16 18:50) latex [Latex] Allergy (Verified 05/30/16 18:50) RASH? UNKNOWN peanut Allergy (Verified 05/30/16 18:50) Penicillins Allergy (Verified 05/30/16 18:50) Quinolones Allergy (Verified 05/30/16 18:50) Sulfa (Sulfonamide Antibiotics) Allergy (Verified 05/30/16 18:50) unknown peanuts Allergy (Severe, Uncoded 05/30/16 18:50) Physical Exam Vital Signs: Temp Pulse Resp BP Pulse Ox 97.5 F 97 18 92/65 L 98 08/02/16 21:16 08/02/16 21:16 08/03/16 02:00 08/03/16 02:00 08/03/16 02:00 Results Laboratory Results: 08/03/16 03:42 VBG pH 7.38 VBG pCO2 42.2 VBG HCO3 24.6 VBG Base Excess -0.5 Impressions: Chest X-Ray 08/02/16 21:57 IMPRESSION: NO ACUTE RADIOGRAPHIC FINDING IN THE CHEST. Assessment & Plan - Diagnosis (1) Acute encephalopathy Is this a current diagnosis for this admission?: YesPlan: Likely secondary to medication overdose, but will check CT scan of brain without contrast also. (2) Medication overdose Qualifiers: Encounter type: initial encounter Injury intent: undetermined intent Qualified Code(s): T50.904A - Poisoning by unspecified drugs, medicaments and biological substances, undetermined, initial encounter Is this a current diagnosis for this admission?: YesPlan: Intensive care unit admission. IVC papers have been drawn up by emergency room physician. Psychiatric consult; both patient and are aware of this consult and did not dispute this plan. I have strongly encouraged patient not to get out of bed without notifying staff , to avoid a fall with injury. Knee high SCDs for DVT prophylaxis, along with subcutaneous Lovenox. Impression and plans were discussed with patient and , both of whom concur. Time spent in evaluation and management of patient: 72 minutes. (3) Precordial chest pain Is this a current diagnosis for this admission?: YesPlan: Likely musculoskeletal, from a fall approximately a week or so ago, but will obtain total of 3 troponins. (4) Bipolar disorder Qualifiers: Active/Remission status: remission status unspecified Qualified Code (s): F31.9 - Bipolar disorder, unspecified Is this a current diagnosis for this admission?: YesPlan: Resume home medications as appropriate once these have been determined and reviewed. - Inpatient Certification Based on my medical assessment, after consideration of the patient's comorbidities, presenting symptoms, or acuity I expect that the services needed warrant INPATIENT care.: Yes I certify that my determination is in accordance with my understanding of Medicare's requirements for reasonable and necessary INPATIENT services [42 CFR 412.3e].: Yes Medical Necessity: Significant Comorbidiites Make Outpatient Treatment Too Risky , Need Close Monitoring Due to Risk of Patient Decompensation, Need For IV Fluids, Need For Continuous Telemetry Monitoring, Risk of Complication if Not Cared For in Hospital Post Hospital Care: D/C or Transfer Summary
--- NOTE | 2016-08-03 05:44 | RADIOLOGY REPORT (SQ) ---
EXAM DESCRIPTION: CT HEAD WITHOUT COMPLETED DATE/TIME: 08/03/2016 5:31 am REASON FOR STUDY: ams COMPARISON: CT head 02/15/2016, 10/22/2010. TECHNIQUE: Axial images acquired through the brain without intravenous contrast. Images reviewed wi th bone, brain and subdural windows. Images stored on PACS. All CT scanners at this facility use dose modulation, iterative reconstruction, and/or weight based d osing when appropriate to reduce radiation dose to as low as reasonably achievable (ALARA). [facility]: Dose Right [facility]: CareDose [facility]: Dose Right [facility]: Teradose 4D [facility]: Snugg Home RADIATION DOSE: 64.61 mGy. LIMITATIONS: None. FINDINGS: VENTRICLES: Normal size and contour. CEREBRUM: No mass effect. No hemorrhage. No midline shift. Normal hauser/white matter differentiatio n. No evidence for acute territorial infarction. CEREBELLUM: No hemorrhage. No alteration of density. No evidence for acute infarction. EXTRAAXIAL SPACES: No fluid collections. ORBITS AND GLOBE: Symmetrical contour of globe without masses. CALVARIUM: No depressed fracture. PARANASAL SINUSES: No air-fluid level. Mucous retention cyst/polyp in the left maxillary sinus. SOFT TISSUES: No hematoma. IMPRESSION: No acute intracranial hemorrhage or acute territorial infarct. TECHNICAL DOCUMENTATION: JOB ID: [id number] [facility] Quality ID # [id number]: Final reports with documentation of one or more dose reduction techniques (e.g., Au tomated exposure control, adjustment of the mA and/or kV according to patient size, use of iterative reconstruction technique) 2010 [employer]- All Rights Reserved
[2016-08-03] MEDS ORDERED: ENOXAPARIN SODIUM INJ 40 MG/0.4 ML DISP.SYRIN SUBCUT SCH (08:00)
--- NOTE | 2016-08-03 09:38 | EKG REPORT ---
SEVERITY:- NORMAL ECG - SINUS RHYTHM : Confirmed by: Dutch Chacon 03-Aug-2016 09:37:38
[2016-08-03] MEDS ORDERED: DOCUSATE SODIUM 100 MG CAPSULE PO SCH (10:00)
--- NOTE | 2016-08-03 11:41 | Progress Note ---
Provider Note Provider Note: pt admitted early this morning under IVC for probable drug overdose with unknown intent and hx of suicide attempt in past. I observed her resting quietly in bed, hemodynamically stable, communicating with nursing and participating in her care, calm and cooperative at present. a/p: polypharmacy with drug OD, unclear intent - continue supportive care. continue IVC until mental health can evaluate further. Query of her narcotic history made and shows monthly refills of valium, norco, oxycontin and zolpidem apparently under the care of PA at [place] [facility].
[2016-08-03] MEDS ORDERED: OXYCODONE HCL IR 5 MG TABLET PO PRN (14:13)
[2016-08-03] MEDS ORDERED: DIPHENHYDRAMINE HCL 50 MG CAPSULE PO PRN (14:13)
[2016-08-03] MEDS ORDERED: MORPHINE SULFATE 10 MG/ML INJ IV PRN (14:13)
[2016-08-03 16:13] VITALS: BP 107/71
--- NOTE | 2016-08-03 17:18 | PSYCHOLOGICAL NOTE ---
Psych Note - Psych Note Psych Note: This is a 25-year-old female who presents with altered mental status. Majority of the history is obtained from the as patient is confused. Patient has been states that when he left to go to work this morning patient seemed fine although she had been up most of the night. Around noon he received a phone call from the patient's sister stating she was concerned because the patient was slurring her words and seemed confused. He then called the patient and told her to lay down and sleep it off. He states that this has happened before when she is taking too much medication and he thought she would be fine by just sleeping. He returned home at 1600 and noticed that she was still altered and talking out of her head. Patient states that she has had "some depression" however she states that she does not think of suicide at all. Patient adamantly denies attempting suicide. Patient states that she does not remember being upset about anything. She continued to disclose the last and she does remember was provided for. Patient states that she does receive mental health services through Dr. Walter in [place]. She used to go [place]. [place] [facility] after she had discovered a heart condition she was referred to [place]. She states she takes Prozac, trazodone, Lamictal, and Xanax as needed. Patient spoke with patient's Rene at [phone], he discloses that he does not believe his is suicidal. He continued disclosed to have a possible substance abuse issue. He states that she has started going to a pain doctor in [place] and have gotten much worse. He continued disclosed concern that she may not see that she is misusing her medications. Patient has agreed to allow her control of the medication time. Patient is also agreed to stop seeing pain management at her 's request. He continued disclosed the patient has shown substance misuse in the fact that she picks and chooses which medications she takes; multiple bottles were empty that were new prescriptions or had many missing pills missing however prescriptions such as Benadryl had no pills missing. Patient is alert and orientated to person place time. Patient does disclose some confusion on circumstance but states she does know that patient. Mood is euthymic with congruent affect. Patient denies suicidal and homicidal ideation. Patient denies auditory visual hallucinations; no behavior is noted that would be congruent with responding to internal stimuli. Noted. Thought process is currently organized and linear. Conversational speech is quiet. Eye contact was fair. Intellectual abilities appear to be within average range. Attention and concentration are fair. Insight, judgment, impulse control are poor. 311 (F32.9) unspecified depressive disorder history provided by pain Polysubstance Impression\\plan: Patient is recommended for rescind of IVC and considered psychiatrically clear for discharge. Patient no longer meet IVC criteria per [place] GS 122C. Patient denies suicidal ideation and states current overdose was accidental. Patient to allow her control of her medication and at her 's request will be discontinuing pain management. Dr. Dacosta was consulted and the care and management of this patient; attending physician in agreement with recommendations and disposition
--- NOTE | 2016-08-03 17:43 | PDOC DISCHARGE SUMMARY ---
General - Admit/Disc Date/PCP Admission Date/Primary Care Provider: 08/03/16 04:38 Discharge Date: 08/03/16 - Additional Information Resuscitation Status: Full Code Discharge Diet: As Tolerated Discharge Activity: Activity As Tolerated Home Medications: Acetaminophen [Tylenol 325 mg Tablet] 650 mg PO Q4HP PRN tablet 08/03/16 Diazepam [Valium 5 mg Tablet] 5 mg PO Q8HP PRN 08/03/16 Diphenhydramine HCl [Benadryl 25 mg Capsule] 25 mg PO Q6HP PRN 08/03/16 Fluoxetine HCl [Prozac] 80 mg PO QHS 08/03/16 Lamotrigine [Lamictal] 200 mg PO QHS 08/03/16 Promethazine HCl [Phenergan 25 mg Tablet] 25 mg PO Q6HP PRN 08/03/16 Trazodone HCl [Desyrel 50 mg Tablet] 50 mg PO QHS 08/03/16 History of Present Illness Patient complains of: altered mental state History of Present Illness: This is a 25-year-old female who presents with altered mental status. Majority of the history is obtained from the as patient is confused. Patient has been states that when he left to go to work this morning patient seemed fine although she had been up most of the night. Around noon he received a phone call from the patient's sister stating she was concerned because the patient was slurring her words and seemed confused. He then called the patient and told her to lay down and sleep it off. He states that this has happened before when she is taking too much medication and he thought she would be fine by just sleeping. He returned home at 1600 and noticed that she was still altered and talking out of her head. Hospital Course Hospital Course: from other's notes: "Patient states that she has had "some depression" however she states that she does not think of suicide at all. Patient adamantly denies attempting suicide. Patient states that she does not remember being upset about anything. She continued to disclose the last and she does remember was provided for. Patient states that she does receive mental health services through Dr. Walter in [place]. [place] [facility] [place] after she had discovered a heart condition she was referred to [place]. She states she takes Prozac, trazodone, Lamictal, and Xanax as needed. Patient spoke with patient's Rene at [phone], he discloses that he does not believe his is suicidal. He continued disclosed to have a possible substance abuse issue. He states that she has started going to a pain doctor in [place] and have gotten much worse. He continued disclosed concern that she may not see that she is misusing her medications. Patient has agreed to allow her control of the medication time. Patient is also agreed to stop seeing pain management at her 's request. He continued disclosed the patient has shown substance misuse in the fact that she picks and chooses which medications she takes; multiple bottles were empty that were new prescriptions or had many missing pills missing however prescriptions such as Benadryl had no pills missing. Patient is alert and orientated to person place time. Patient does disclose some confusion on circumstance but states she does know that patient. Mood is euthymic with congruent affect. Patient denies suicidal and homicidal ideation. Patient denies auditory visual hallucinations; no behavior is noted that would be congruent with responding to internal stimuli. Noted. Thought process is currently organized and linear. Conversational speech is quiet. Eye contact was fair. Intellectual abilities appear to be within average range. Attention and concentration are fair. Insight, judgment, impulse control are poor. 311 (F32.9) unspecified depressive disorder history provided by pain Polysubstance Impression\\plan: Patient is recommended for rescind of IVC and considered psychiatrically clear for discharge. Patient no longer meet IVC criteria per [place] GS 122C. Patient denies suicidal ideation and states current overdose was accidental. Patient to allow her control of her medication and at her 's request will be discontinuing pain management. Dr. Dacosta was consulted and the care and management of this patient; attending physician in agreement with recommendations and disposition" pt admitted early this morning under IVC for probable drug overdose with unknown intent and hx of suicide attempt in past. I observed her resting quietly in bed, hemodynamically stable, communicating with nursing and participating in her care, calm and cooperative at present. a/p: polypharmacy with drug OD, unclear intent - continue supportive care. continue IVC until mental health can evaluate further. Query of her narcotic history made and shows monthly refills of valium, norco, oxycontin and zolpidem apparently under the care of PA at [place] [facility]. ADDENDUM: patient is awake and alert and seems no to have suffered any ill effects from her polypharmacy, no ecg changes, no QTc prolongation, no hemodynamic compromise, no significant lab anl's. she reports left chest wall pain that she thinks is her Takutsobo's Cardiomyopathy that [facility] [place] in 03/2016. she reports a rather extensive medical history for a 25 y.o. including a reportedly clean cardiac cath 03/2016. her chest pain is reproducible on exam with palpation along the sternal border with radiating pain into her jaw and shoulder, normal ecg and normal cardiac enzymes. she reports anaphylaxis with complete respiratory collapse requiring intubation and mechanical ventilation x2 with life flights out of our facility to another as a result. she receives large doses of epinephrine that results in cardiac and/or pulmonary collapse requiring the above interventions. she is clear from a medical standpoint, no further investigation of her chest pain is warranted based on her history and physical exam findings. she is medically cleared for mental health evaluation at their earliest convenience, she doesn't warrant continued ICU status. and in fact no longer warrants inpatient management, she has no active medical condition and has now been cleared from mental health standpoint therefore she is stable for d/c home. I recommend weaning back some of her psychotropic meds and close outpt f/u with her psychiatrist in one week. return to the ED for worsening condition. NO Rx' s provided, instructed to f/u with her PCP and Psych for refills. Physical Exam Vital Signs: Temp Pulse Resp BP Pulse Ox 98.2 F 97 15 107/71 100 08/03/16 16:00 08/03/16 16:00 08/03/16 17:00 08/03/16 16:07 08/03/16 17:00 Intake & Output 08/02/16 08/03/16 08/04/16 06:59 06:59 06:59 Intake Total 90 Output Total 200 Balance -110 Weight 73 kg General appearance: PRESENT: no acute distress, well-developed, well-nourished Head exam: PRESENT: atraumatic, normocephalic Eye exam: ABSENT: conjunctival injection, scleral icterus Mouth exam: PRESENT: moist, neck supple Neck exam: ABSENT: tracheal deviation Respiratory exam: PRESENT: clear to auscultation rudi. ABSENT: accessory muscle use Cardiovascular exam: PRESENT: RRR. ABSENT: systolic murmur Extremities exam: ABSENT: pedal edema, tenderness Musculoskeletal exam: PRESENT: ambulatory, full ROM Neurological exam: PRESENT: alert, awake, oriented to time, oriented to situation Psychiatric exam: PRESENT: depressed, other - emotional Results Laboratory Results: 08/03/16 05:00 08/03/16 05:00 08/03/16 08/03/16 05:00 05:00 WBC 6.0 RBC 3.51 L Hgb 10.0 L Hct 29.6 L MCV 84 MCH 28.4 MCHC 33.7 RDW 14.2 H Plt Count 227 Seg Neutrophils % 67.1 Lymphocytes % 23.2 Monocytes % 8.8 Eosinophils % 0.6 Basophils % 0.3 Absolute Neutrophils 4.0 Absolute Lymphocytes 1.4 Absolute Monocytes 0.5 Absolute Eosinophils 0.0 Absolute Basophils 0.0 Sodium 140.8 Potassium 3.8 Chloride 110 H Carbon Dioxide 22 Anion Gap 9 BUN 9 Creatinine 0.51 L Est GFR ( Amer) > 60 Est GFR (Non-Af Amer) > 60 Glucose 83 Calcium 8.2 L 08/03/16 08/03/16 05:00 11:05 Troponin I < 0.012 < 0.012 Impressions: Chest X-Ray 08/02/16 21:57 IMPRESSION: NO ACUTE RADIOGRAPHIC FINDING IN THE CHEST. Head CT 08/03/16 00:00 IMPRESSION: No acute intracranial hemorrhage or acute territorial infarct. Qualifiers PATEINT BEING DISCHARGED WITH ANY OF THE FOLLOWING DIAGNOSIS?: No VTE patient discharged on overlapping Therapy?: No Reason(s) for not prescribing Overlap Therapy:: Not indicated Plan Discharge Plan: f/u PCP and psych Time Spent: Greater than 30 Minutes
[2016-08-03] MEDS ORDERED: LAMOTRIGINE 100 MG TABLET PO SCH (22:00)
[2016-08-03] MEDS ORDERED: FLUOXETINE HCL 20 MG CAPSULE PO SCH (22:00)
[2016-08-03] MEDS ORDERED: (PENDING PHARMACY ID) (Lamotrigine [Lamotrigine] 200 MG) PO SCH (22:00)
== END 2016-08-03 18:26 | disposition home or self-care (01) ==
LOC: ER 21:00 → EH 08-03 03:20 → UNDOADMIN 08-03 03:20 → EH 08-03 04:38 → INTOOBSV 08-03 04:38 → ICU 08-03 08:00
PROVIDERS: ADMIT Family Medicine; ATTEND Family Medicine
DX: T50.904A Poisoning by unspecified drugs, medicaments and biological substances, undetermined, initial encounter (principal); G93.40 Encephalopathy, unspecified; R07.2 Precordial pain; W19.XXXS Unspecified fall, sequela; R68.84 Jaw pain; M25.519 Pain in unspecified shoulder; I51.81 Takotsubo syndrome; F31.9 Bipolar disorder, unspecified; F41.1 Generalized anxiety disorder; I25.2 Old myocardial infarction; Z79.899 Other long term (current) drug therapy; Z79.891 Long term (current) use of opiate analgesic; Z90.49 Acquired absence of other specified parts of digestive tract; Z91.5 Personal history of self-harm; Z91.81 History of falling; Z87.828 Personal history of other (healed) physical injury and trauma; Z82.49 Family history of ischemic heart disease and other diseases of the circulatory system
CPT/HCPCS: 93005; 99285; 96360; 36415 ×2; 80307 ×4; 82550; 83735; 84443; 84703; 85025 ×2; 85610; 85730; 81025; 80048; 80053; 81001; 84484; 82803; 71010; 70450; 93010; J1650; J7030 ×2; G0378

== ENCOUNTER 2017-05-13 19:10 | Inpatient (IN) | payer BC ==
[2017-05-13] MEDS ORDERED: EPINEPHRINE INJ/PF 1 MG/1 ML AMPULE IM ONE (19:32)
[2017-05-13] MEDS ORDERED: RACEPINEPHRINE HCL 2.25% NEB 0.5 ML AMPUL NEB ONE (19:33)
[2017-05-13] MEDS ORDERED: DIPHENHYDRAMINE HCL 50 MG/ML VIAL ONE (19:34)
[2017-05-13] MEDS ORDERED: EPINEPHRINE INJ 30 MG/30 ML VIAL ONE (19:34)
[2017-05-13] MEDS ORDERED: FAMOTIDINE INJ/PF 20 MG/2 ML SDV IV ONE ×2 (19:35→20:45)
[2017-05-13] MEDS ORDERED: KETAMINE HCL INJ 500 MG/10 ML VIAL ONE ×2 (19:47→22:19)
[2017-05-13] MEDS ORDERED: MIDAZOLAM 2 MG/2 ML INJ ONE (19:47)
[2017-05-13] MEDS ORDERED: VECURONIUM BROMIDE INJ 10 MG VIAL IV ONE ×4 (20:02→21:14)
--- NOTE | 2017-05-13 20:31 | RADIOLOGY REPORT (SQ) ---
EXAM DESCRIPTION: CHEST SINGLE VIEW COMPLETED DATE/TIME: 05/13/2017 8:24 pm REASON FOR STUDY: ET PLACEMENT COMPARISON: None. EXAM PARAMETERS: NUMBER OF VIEWS: One view. TECHNIQUE: Single frontal radiographic view of the chest acquired. RADIATION DOSE: NA LIMITATIONS: None. FINDINGS: LUNGS AND PLEURA: Patchy infiltrate in the left lung. Right lung clear. MEDIASTINUM AND HILAR STRUCTURES: No masses. Contour normal. HEART AND VASCULAR STRUCTURES: Heart normal in size. Normal vasculature. BONES: No acute findings. HARDWARE: Endotracheal tube with the tip located 2 cm proximal to the jazmin. OTHER: No other significant finding. IMPRESSION: ENDOTRACHEAL TUBE APPEARS TO BE IN SATISFACTORY POSITION. INFILTRATE IN THE LEFT LUNG S USPICIOUS FOR PNEUMONIA. TECHNICAL DOCUMENTATION: JOB ID: [id number] [employer]- All Rights Reserved Reading location - IP/workstation name: [email or web address]
[2017-05-13] MEDS ORDERED: MIDAZOLAM HCL 50 MG/100 ML RTUINJ IV ONE (20:41)
[2017-05-13] MEDS ORDERED: NORMAL SALINE 1000 ML 1,000 ML IV ONE ×2 (20:44→20:45)
[2017-05-13] MEDS ORDERED: DIPHENHYDRAMINE HCL 50 MG/ML VIAL IV ONE (20:45)
[2017-05-13] MEDS ORDERED: MIDAZOLAM HCL 50 MG/100 ML RTUINJ IV PRN (20:46)
[2017-05-13] MEDS ORDERED: DEXTROSE 5%-WATER 250 ML with EPINEPHRINE/PF 1 MG IV PRN ×2 (20:48)
[2017-05-13 20:54] LABS: VENOUS BLOOD BASE EXCESS 1.6 mmol/L; VENOUS BLOOD HCO3 28.4 mmol/L (20-32); VENOUS BLOOD PCO2 53.8 mmHg (35-63); VENOUS BLOOD PH 7.34 (7.30-7.42)
[2017-05-13 20:58] LABS: ABSOLUTE BASOPHILS # (AUTO) 0.1 10^3/uL (0.0-0.2); ABSOLUTE EOSINOPHILS # (AUTO) 0.1 10^3/uL (0.0-0.6); ABSOLUTE LYMPHOCYTES (AUTO) 4.3 10^3/uL (0.5-4.7); ABSOLUTE MONOCYTES (AUTO) 1.2 10^3/uL (0.1-1.4); ABSOLUTE NEUT (AUTO) 11.1 10^3/uL (1.7-8.2); BASOPHILS % (AUTO) 0.4 % (0-2); EOSINOPHILS % (AUTO) 0.3 % (0-6); HEMOGLOBIN 12.8 g/dL (12.0-15.5); LYMPHOCYTES % (AUTO) 25.5 % (13-45); MEAN CORPUSCULAR HEMOGLOBIN 26.3 pg (27.0-33.4); MEAN CORPUSCULAR HGB CONC 32.7 g/dL (32.0-36.0); MEAN CORPUSCULAR VOLUME 80 fl (80-97); MONOCYTES % (AUTO) 7.1 % (3-13); PLATELET COUNT 652 10^3/uL (150-450); RED BLOOD COUNT 4.86 10^6/uL (3.72-5.28); RED CELL DISTRIBUTION WIDTH 14.7 % (11.5-14.0); SEGMENTED NEUTROPHILS % (AUTO) 66.7 % (42-78); TOTAL CELLS COUNTED % (AUTO) 100 %; WHITE BLOOD COUNT 16.7 10^3/uL (4.0-10.5)
--- NOTE | 2017-05-13 20:58 | RADIOLOGY REPORT (SQ) ---
EXAM DESCRIPTION: CHEST SINGLE VIEW COMPLETED DATE/TIME: 05/13/2017 8:50 pm REASON FOR STUDY: CENTRAL LINE / NG TUBE COMPARISON: 05/13/2017 at 2008 hours. EXAM PARAMETERS: NUMBER OF VIEWS: One view. TECHNIQUE: Single frontal radiographic view of the chest acquired. RADIATION DOSE: NA LIMITATIONS: None. FINDINGS: LUNGS AND PLEURA: Patchy infiltrate in the left lung unchanged. Right lung relatively suman ar. No pneumothorax. MEDIASTINUM AND HILAR STRUCTURES: No masses. Contour normal. HEART AND VASCULAR STRUCTURES: Heart normal in size. Normal vasculature. BONES: No acute findings. HARDWARE: Right-sided central line with the tip at the level of the right atrium. Nasogastric tube w ith the tip in the stomach. Endotracheal tube with the tip located 2 cm proximal to the jazmin. Cli ps in the upper abdomen. OTHER: No other significant finding. IMPRESSION: 1. LIFE LINES DESCRIBED. NO PNEUMOTHORAX FOLLOWING CENTRAL LINE PLACEMENT. 2. PATCHY INFILTRATE IN THE LEFT LUNG. TECHNICAL DOCUMENTATION: JOB ID: [id number] [employer]- All Rights Reserved Reading location - IP/workstation name: [email or web address]
[2017-05-13 21:02] LABS: ALANINE AMINOTRANSFERASE 27 U/L (9-52); ALBUMIN 4.5 g/dL (3.5-5.0); ALKALINE PHOSPHATASE 71 U/L (38-126); ANION GAP 17 (5-19); ASPARTATE AMINO TRANSFERASE 16 U/L (14-36); BILIRUBIN,DIRECT 0.2 mg/dL (0.0-0.4); BILIRUBIN,TOTAL 0.2 mg/dL (0.2-1.3); BLOOD UREA NITROGEN 16 mg/dL (7-20); CALCIUM 10.2 mg/dL (8.4-10.2); CARBON DIOXIDE 25 mmol/L (22-30); CHLORIDE 98 mmol/L (98-107); GLUCOSE 139 mg/dL (75-110); POTASSIUM 3.1 mmol/L (3.6-5.0); SODIUM 139.6 mmol/L (137-145); TOTAL PROTEIN 7.1 g/dL (6.3-8.2)
[2017-05-13] MEDS ORDERED: KETAMINE HCL INJ 500 MG/10 ML VIAL IV ONE ×2 (21:13→21:14)
--- NOTE | 2017-05-13 21:35 | ER Document Report ---
ED Allergic Reaction <SIMATED - Last Filed: 05/13/17 21:41> - General TRAVEL OUTSIDE OF THE [place] IN LAST 30 DAYS: No <TULIO HOUSTON - Last Filed: 05/13/17 23:18> - General Chief Complaint: Allergic Reaction Stated Complaint: POSSIBLE ALLERGIC REACTION Time Seen by Provider: 05/13/17 19:28 Notes: Patient is a 26-year-old female that comes emergency department for chief complaint of allergic reaction. She reports difficulty breathing, she was given 125 mg of Solu-Medrol by EMS and 25 mg Benadryl along with taking her own EpiPen at home and then being given another 1 by EMS. On evaluation patient has difficulty speaking, she is mouthing words, she is mouthing "help me", "can' t breathe", and indicating by pointing at her throat. Father at bedside, states that she was seen yesterday at [place], evaluated for tightness in her throat, given multiple medications, he states she did improve and then went home. He states she worsened again suddenly and this time she broke out into a rash over her body which is new. Father clarifies that patient has had 2 intubations in the past and one other admission where she was given some much epinephrine she had heart strain (most recent episode was last year). Patient has history of anxiety, father denies any depression, denies knowledge of her taking any recreational or nonprescribed substances. (TULIO HOUSTON) - Related Data Allergies/Adverse Reactions: tree nut [Tree Nut] Allergy (Severe, Verified 05/13/17 19:11) banana [Banana] Allergy (Unknown, Verified 05/13/17 19:11) latex [Latex] Allergy (Verified 05/13/17 19:11) RASH? UNKNOWN peanut Allergy (Verified 05/13/17 19:11) Penicillins Allergy (Verified 05/13/17 19:11) Quinolones Allergy (Verified 05/13/17 19:11) Sulfa (Sulfonamide Antibiotics) Allergy (Verified 05/13/17 19:11) unknown peanuts Allergy (Severe, Uncoded 05/13/17 19:11) Past Medical History - General Information source: Patient, Parent - Social History Smoking Status: Unknown if Ever Smoked Chew tobacco use (# tins/day): No Lives with: Family Family History: Arthritis, CAD, CVA, DM, Hyperlipidemia, Hypertension, Malignancy, Thyroid Disfunction Patient has suicidal ideation: No Patient has homicidal ideation: No - Past Medical History Cardiac Medical History: Reports: 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 Denies: Hx Congestive Heart Failure, Hx DVT, Hx Hypercholesterolemia, Hx Hypertension, Hx Pulmonary Embolism Pulmonary Medical History: Reports: Hx Asthma, Hx Pneumonia Denies: Hx COPD, Hx Sleep Apnea Neurological Medical History: Reports: Hx Seizures - Seizure 2 at 15 years of age, never on antiepileptic. Endocrine Medical History: Denies: Hx Diabetes Mellitus Type 1, Hx Diabetes Mellitus Type 2, Hx Hyperthyroidism, Hx Hypothyroidism Renal/ Medical History: Reports: Hx Kidney Stones, Hx Ovarian Cysts. Denies: Hx Peritoneal Dialysis GI Medical History: Denies: Hx Cirrhosis, Hx Gastroesophageal Reflux Disease, Hx Hepatitis Musculoskeltal Medical History: Reports Hx Arthritis, Reports Hx Musculoskeletal Trauma Psychiatric Medical History: Reports: Hx Anxiety, Hx Bipolar Disorder, Hx Depression Traumatic Medical History: Reports: Hx Fractures, Hx Pneumothorax Infectious Medical History: Denies: Hx C-Diff, Hx Hepatitis, Hx MRSA Past Surgical History: Reports: Hx Abdominal Surgery, Hx Cholecystectomy, Hx Nose Surgery - sinus, Hx Oral Surgery - Immunizations Immunizations up to date: Yes Hx Diphtheria, Pertussis, Tetanus Vaccination: Yes <TULIO HOUSTON - Last Filed: 05/13/17 23:18> Review of Systems - Review of Systems Constitutional: No symptoms reported EENT: See HPI Cardiovascular: No symptoms reported Respiratory: See HPI Gastrointestinal: No symptoms reported Genitourinary: No symptoms reported Female Genitourinary: No symptoms reported Musculoskeletal: No symptoms reported Skin: See HPI Hematologic/Lymphatic: No symptoms reported Neurological/Psychological: No symptoms reported <TULIO HOUSTON - Last Filed: 05/13/17 23:18> Physical Exam - General General appearance: Anxious In distress: Severe - HEENT Head: Normocephalic, Atraumatic Eyes: Normal Conjunctiva: Normal Extraocular movements intact: Yes Eyelashes: Normal Pupils: PERRL Sinus: Normal Nasal: Normal Mouth/Lips: Normal Pharynx: Other - There is erythema with questionable swelling in the pharynx, tongue is not swollen, ENT exam is otherwise unremarkable Neck: Normal - Respiratory Respiratory status: Respiratory distress, Labored, Tripod position Breath sounds: Decreased air movement, Wheezing - Cardiovascular Rhythm: Regular, Tachycardia Heart sounds: Normal auscultation, S1 appreciated, S2 appreciated - Abdominal Inspection: Normal Tenderness: Nontender. No: Tender, Guarding - Back Back: Normal, Nontender. No: Tender - Extremities General upper extremity: Normal inspection, Nontender, Normal strength, Normal temperature General lower extremity: Normal inspection, Nontender, Normal strength, Normal temperature. No: Edema - Neurological Cognition: Normal Orientation: AAOx4 Mcintyre Coma Scale Eye Opening: Spontaneous Mcintyre Coma Scale Verbal: Oriented Mcintyre Coma Scale Motor: Obeys Commands Mcintyre Coma Scale Total: 15 - Psychological Associated symptoms: Anxious - Skin Skin Temperature: Warm Skin Moisture: Dry Skin Color: Normal Skin irregularity: Rash - Scattered raised erythematous rash over the body, mainly the back <UTLIO HOUSTON - Last Filed: 05/13/17 23:18> - Vital signs Vitals: Resp Pulse Ox 17 99 05/13/17 19:14 05/13/17 19:14 Course - Laboratory Result Diagrams: 05/13/17 20:11 05/13/17 20:11 <TED JAVIER - Last Filed: 05/13/17 21:41> - Laboratory Result Diagrams: 05/13/17 20:11 05/13/17 20:11 <TULIO HOUSTON - Last Filed: 05/13/17 23:18> - Re-evaluation Re-evalutation: 05/13/17 21:41 Notified by MARIN Houston but the worsening condition of the patient with a acute allergic reaction. Patient was moved to the trauma room #1 without improvement in her status therefore the decision was made to intubate. Intubation and central line were performed by MARIN Houston I was at bedside witnessing/assisting during all procedures and highly involved in the management of this critical patient (TED JAVIER) On my initial evaluation patient gasping for air, has hot potato voice which quickly worsened and she lost ability to speak. She has very tight breath sounds. She has a generalized erythematous raised rash over the body. Patient was immediately given 0.3 mg of IM epinephrine, 25 mg more Benadryl, 20 mg Pepcid, Dr. Javier was notified and he came to bedside, patient was transferred over to the trauma bay. 05/13/17 Patient clearly with more difficulty breathing, she began to appear tired, she still cannot speak, she is not hypotensive. She is tachycardic but not hypoxic. Decision was made to preserve patient's airway because she is getting worn out. Dr. Javier at bedside. Patient was intubated, noted to have very swollen airway, slightly right mainstem, had to be backed up, central line placed, IV epinephrine drip placed. Patient's vital signs improved, she is maintaining well on the vent. 05/13/[address] Barrios, internal medicine, recommends lactic acid be repeated along with a drug screen because of patient's history of bipolar/depression/OD history. Lactic acid is downtrending. 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 Spoke to Dr. Barrios again, patient will be admitted to the ICU. (TULIO HOUSTON) - Vital Signs Vital signs: Temp Pulse Resp BP Pulse Ox 98.1 F 17 125/81 100 05/13/17 22:31 05/13/17 22:31 05/13/17 22:31 05/13/17 22:31 - Laboratory Laboratory results interpreted by me: 05/13/17 05/13/17 05/13/17 20:11 20:11 20:11 WBC 16.7 H MCH 26.3 L RDW 14.7 H Plt Count 652 H Absolute Neutrophils 11.1 H ABG pH ABG pO2 ABG O2 Saturation Potassium 3.1 L Glucose 139 H Lactic Acid 3.7 H Urine Ascorbic Acid Salicylates Acetaminophen 05/13/17 05/13/17 05/13/17 20:11 21:22 22:00 WBC MCH RDW Plt Count Absolute Neutrophils ABG pH 7.34 L ABG pO2 446.2 H ABG O2 Saturation 99.8 H Potassium Glucose Lactic Acid Urine Ascorbic Acid 40 H Salicylates < 1.0 L Acetaminophen < 10 L Procedures <TED JAVIER - Last Filed: 05/13/17 21:41> - Central Line Right Internal jugular Consent obtained: Yes - patient intubated, consent verbal by father Central line pre-insertion: Sterile PPE donned, Chloraprep applied Central line lumen type: Triple Ultrasound guided: Yes CM at insertion site: 12 Line secured with sutures: Yes Central line post-insertion: Blood return from lumens, Biopatch applied, Sutured , Sterile dressing applied, Position confirmed w/ CXR Number of attempts: 1 Complications: No - Intubation Orotracheal Airway evaluation: Other - The patient has a very anterior airway, airway is noted to be very swollen with large amount of soft tissue swelling around the vocal cords Mallampati Classification: Class 3 Medications: Versed, Ketamine Intubation method: Orotracheal Blade type: Destiny Blade size: 3 Equipment used: Glidescope ETT size: 7.0 ETT secured at: Teeth ETT secured at (cm): 23 Breath Sounds after Intubation: Equal End tidal CO2 confirmed: Yes Post Intubation Xray: Yes - Slight right mainstem, this was backed up to 23 cm <TULIO HOUSTON - Last Filed: 05/13/17 23:18> - Intubation Orotracheal Notes: Large amount of soft tissue swelling noted around the airway with edema, as result a bougie was used to intubate and then a 7.0 tube was placed over the bougie with success. Single attempt. Dr. Javier present during procedure. (TULIO HOUSTON) Critical Care Note <TED JAVIER - Last Filed: 05/13/17 21:41> - Critical Care Note Total time excluding time spent on procedures (mins): 60 - respiratory distress , anaphylaxis <TULIO HOUSTON - Last Filed: 05/13/17 23:18> - Critical Care Note Comments: Please allow 60 minutes of critical care time excluding time spent on procedures for management of critical patient with anaphylaxis, respiratory distress, requiring multiple medications, multiple re-evaluations, discussion with family members, admission to the ICU. I spent about 15 minutes speaking to the , family, discussing previous events, discussing current incident, and providing explanation to the best of my ability. (TULIO HOUSTON) Discharge <TED JAVIER - Last Filed: 05/13/17 21:41> - Discharge Admitting Provider: Hospitalist Unit Admitted: ICU <TULIO HOUSTON - Last Filed: 05/13/17 23:18> - Discharge Clinical Impression: Rash, Respiratory distress Anaphylaxis Qualifiers: Encounter type: initial encounter Qualified Code(s): T78.2XXA - Anaphylactic shock, unspecified, initial encounter Condition: Serious Disposition: ADMITTED INPATIENT
[2017-05-13] MEDS ORDERED: FENTANYL CITRATE INJ/PF 100 MCG/2 ML AMPUL IV ONE ×2 (21:37→22:15)
[2017-05-13 21:42] LABS: ACETAMINOPHEN < 10 ug/mL (10-30); ALCOHOL < 10 mg/dL (NONE DETECTED); SALICYLATE < 1.0 mg/dL (2.0-20.0)
[2017-05-13 21:53] LABS: APPEARANCE,URINE CLEAR; BILIRUBIN,URINE NEGATIVE (NEGATIVE); COLOR,URINE YELLOW; GLUCOSE, URINE NEGATIVE (NEGATIVE); KETONES,URINE NEGATIVE (NEGATIVE); LEUKOCYTE ESTERASE,URINE NEGATIVE (NEGATIVE); NITRITE,URINE NEGATIVE (NEGATIVE); PROTEIN,URINE NEGATIVE (NEGATIVE); URINE SPECIFIC GRAVITY 1.029; UROBILINOGEN,URINE NEGATIVE mg/dL (<2.0)
[2017-05-13 21:54] LABS: URINE AMPHETAMINES SCREEN NEGATIVE; URINE BARBITURATES SCREEN NEGATIVE; URINE BENZODIAZEPINES SCREEN UNCONFIRMED POSITIVE; URINE COCAINE SCREEN NEGATIVE; URINE MARIJUANA (THC) SCREEN NEGATIVE; URINE METHADONE SCREEN NEGATIVE; URINE PHENCYCLIDINE SCREEN NEGATIVE
[2017-05-13] MEDS ORDERED: FENTANYL CITRATE INJ/PF 100 MCG/2 ML AMPUL ONE (22:17)
[2017-05-13] MEDS ORDERED: ACETAMINOPHEN 325 MG TABLET NG PRN (22:22)
[2017-05-13] MEDS ORDERED: IPRATROPIUM/ALBUTEROL 0.5-2.5 MG/3 ML AMPUL NEB PRN (22:22)
[2017-05-13] MEDS ORDERED: DEXTROSE 5%-WATER 250 ML with NOREPINEPHRINE BITARTRATE 4 MG IV PRN ×2 (22:22)
[2017-05-13 22:33] LABS: ARTERIAL BLOOD BASE EXCESS -2.3 mmol/L; ARTERIAL BLOOD FIO2 100%; ARTERIAL BLOOD H2CO3 1.34 mmol/L (1.05-1.35); ARTERIAL BLOOD HCO3 23.5 mmol/L (20-26); ARTERIAL BLOOD O2 SATURATION 99.8 % (94-98); ARTERIAL BLOOD PCO2 44.5 mmHg (35-45); ARTERIAL BLOOD PH 7.34 (7.35-7.45); ARTERIAL BLOOD PO2 446.2 mmHg (80-100); ARTERIAL BLOOD TOTAL CO2 24.9 mmol/L (21-25)
[2017-05-13] MEDS ORDERED: PROPOFOL 100 ML IV ONE (22:48)
[2017-05-13] MEDS ORDERED: ARIPIPRAZOLE 5 MG TABLET NG SCH (23:00)
[2017-05-13] MEDS: IPRATROPIUM/ALBUTEROL 0.5-2.5 MG/3 ML AMPUL NEB SCH (23:37)
[2017-05-13] MEDS: POTASSI CL 20 MEQ/50 ML RIDER 20 MEQ/50 ML RTUPB IV SCH (23:56)
[2017-05-13] MEDS: NORMAL SALINE 1000 ML 1,000 ML IV SCH (23:57)
[2017-05-14] MEDS: MIDAZOLAM HCL 50 MG/100 ML RTUINJ IV PRN ×7 (02:19→20:18)
[2017-05-14] MEDS ORDERED: INFLUENZA ADLT QUAD (36MOS+) 2017-18 VAC 0.5 ML SYR IM PRN (02:55)
--- NOTE | 2017-05-14 02:57 | PDOC H&P ---
History of Present Illness Admission Date/PCP: 05/13/17 22:33 Patient complains of: Stridor and hives History of Present Illness: BERNICE DAVENPORT is a 26 year old female with a past medical history of depression, anxiety, chronic pain, severe allergies and recurrent anaphylaxis. Patient presents 12 hours after discharge from [facility] where she was treated for allergic reaction and discharged. She has subsequently had a return of symptoms with hives, difficulty speaking and swelling of the posterior pharynx. She self-administered an EpiPen, EMS administered additional epinephrine 1, Solu-Medrol and 25 mg of Benadryl. In the emergency room she is found to have stridor with erythema and narrowing of the posterior pharynx and subsequently intubated. She is placed a ventilator, IV epinephrine, Pepcid and Versed then referred to the hospitalist for admission. Patient is unable to provide history , father who was at bedside has now left. Past Medical History Cardiac Medical History: Reports: Myocardial Infarction - Previous "type II" CT. Denies: Congestive Heart Failure, DVT, Hyperlipidema, Hypertension, Pulmonary Embolism Pulmonary Medical History: Reports: Asthma, Pneumonia Denies: Chronic Obstructive Pulmonary Disease (COPD), Sleep Apnea Neurological Medical History: Reports: Seizures - Seizure 2 at 15 years of age , never on antiepileptic. Endocrine Medical History: Denies: Diabetes Mellitus Type 1, Diabetes Mellitus Type 2, Hyperthyroidism, Hypothyroidism GI Medical History: Denies: Cirrhosis, Gastroesophageal Reflux Disease, Hepatitis Musculoskeltal Medical History: Reports: Arthritis Skin Medical History: Reports: Other - Atopy Psychiatric Medical History: Reports: Bipolar Disorder, Depression, General Anxiety Disorder Traumatic Medical History: Reports: Pneumothorax Hematology: Denies: Anemia Infectious Medical History: Denies: Clostridium Difficile, Methicillin-Resistant Staph Aureus Past Surgical History Past Surgical History: Reports: Cholecystectomy Social History Information Source: Emergency Med Personnel, [facility] Records Lives with: Family Smoking Status: Unknown if Ever Smoked Frequency of Alcohol Use: None Hx Recreational Drug Use: No Hx Prescription Drug Abuse: Yes - Suspected. - Advance Directive Resuscitation Status: Full Code Family History Family History: Arthritis, CAD, CVA, DM, Hyperlipidemia, Hypertension, Malignancy, Thyroid Disfunction Parental Family History Reviewed: No - Unobtainable Children Family History Reviewed: No - Unobtainable Sibling(s) Family History Reviewed.: No - Unobtainable Medication/Allergy Home Medications: Diphenhydramine HCl [Benadryl 25 mg Capsule] 25 mg PO Q6HP PRN 08/03/16 Lamotrigine [Lamictal] 200 mg PO QHS 08/03/16 Bupropion HCl [Wellbutrin 75 mg Tablet] 75 mg PO BID 05/13/17 Carisoprodol [Soma 350 Mg Tablet] 350 mg PO TID 05/13/17 Etodolac 400 mg PO BID 05/13/17 Fluoxetine HCl 60 mg PO DAILY 05/13/17 Hydroxyzine HCl [Atarax 25 mg Tablet] 2 tab PO TID 05/13/17 Ondansetron [Zofran Odt] 8 mg PO Q6H 05/13/17 Propranolol HCl [Inderal 20 mg Tablet] 20 mg PO DAILY 05/13/17 Sumatriptan Succinate 6 mg SQ ASDIR PRN 05/13/17 Trazodone HCl 200 mg PO QHS 05/13/17 Allergies/Adverse Reactions: tree nut [Tree Nut] Allergy (Severe, Verified 05/13/17 19:11) banana [Banana] Allergy (Unknown, Verified 05/13/17 19:11) latex [Latex] Allergy (Verified 05/13/17 19:11) RASH? UNKNOWN peanut Allergy (Verified 05/13/17 19:11) Penicillins Allergy (Verified 05/13/17 19:11) Quinolones Allergy (Verified 05/13/17 19:11) Sulfa (Sulfonamide Antibiotics) Allergy (Verified 05/13/17 19:11) unknown peanuts Allergy (Severe, Uncoded 05/13/17 19:11) Review of Systems ROS unobtainable: Due to mental status - Intubated and sedated Physical Exam Vital Signs: Temp Pulse Resp BP Pulse Ox 99.3 F 107 H 14 132/93 H 100 05/14/17 01:48 05/14/17 01:22 05/14/17 01:22 05/14/17 01:22 05/14/17 01:22 Intake & Output 05/12/17 05/13/17 05/14/17 11:59 11:59 11:59 Output Total 1150 Balance -1150 Weight 72.6 kg General appearance: PRESENT: no acute distress, well-developed, well-nourished, other - Appears comfortable on vent with synchronized breathing Head exam: PRESENT: atraumatic, normocephalic Eye exam: PRESENT: conjunctiva pink, EOMI, PERRLA. ABSENT: scleral icterus Ear exam: PRESENT: normal external ear exam Mouth exam: PRESENT: moist, tongue midline Neck exam: ABSENT: carotid bruit, JVD, lymphadenopathy, thyromegaly Respiratory exam: PRESENT: clear to auscultation rudi. ABSENT: rales, rhonchi, wheezes Cardiovascular exam: PRESENT: RRR. ABSENT: diastolic murmur, rubs, systolic murmur Pulses: PRESENT: normal dorsalis pedis pul Vascular exam: PRESENT: normal capillary refill GI/Abdominal exam: PRESENT: normal bowel sounds, soft. ABSENT: distended, guarding, mass, organolmegaly, rebound, tenderness Rectal exam: PRESENT: deferred Extremities exam: PRESENT: full ROM. ABSENT: calf tenderness, clubbing, pedal edema Neurological exam: PRESENT: alert, awake, oriented to person, oriented to place , oriented to time, oriented to situation, CN II-XII grossly intact. ABSENT: motor sensory deficit Psychiatric exam: PRESENT: appropriate affect, normal mood. ABSENT: homicidal ideation, suicidal ideation Skin exam: PRESENT: dry, intact, warm. ABSENT: cyanosis, rash Results Impressions: Chest X-Ray 05/13/17 00:00 IMPRESSION: 1. LIFE LINES DESCRIBED. NO PNEUMOTHORAX FOLLOWING CENTRAL LINE PLACEMENT. 2. PATCHY INFILTRATE IN THE LEFT LUNG. Assessment & Plan - Diagnosis (1) Anaphylaxis Qualifiers: Encounter type: initial encounter Qualified Code(s): T78.2XXA - Anaphylactic shock, unspecified, initial encounter Is this a current diagnosis for this admission?: Yes Plan: Patient presents with biphasic anaphylaxis with stridor, and hives approximately 12 hours after treatment. Continue supportive care, ventilator management, IV Solu-Medrol, epinephrine and Pepcid. Follow-up CBC and chemistry. (2) Respiratory distress Is this a current diagnosis for this admission?: Yes Plan: Secondary to #1, evaluate ABG consider pulmonology consult given concern for recurrent airway edema. (3) Bipolar disorder Qualifiers: Active/Remission status: remission status unspecified Qualified Code(s): F31.9 - Bipolar disorder, unspecified Is this a current diagnosis for this admission?: Yes Plan: Chronic pain, depression anxiety with opiate and benzo dependent. Supportive care - Time Time Spent: 50 to 70 Minutes - Inpatient Certification Medical Necessity: Need Close Monitoring Due to Risk of Patient Decompensation
[2017-05-14] MEDS: PROPOFOL 100 ML IV PRN ×5 (03:37→20:18)
[2017-05-14] MEDS: POTASSI CL 20 MEQ/50 ML RIDER 20 MEQ/50 ML RTUPB IV SCH (03:51)
[2017-05-14] MEDS ORDERED: HYDRALAZINE HCL INJ/PF 20 MG/1 ML SDV IV PRN (04:08)
[2017-05-14] MEDS ORDERED: AZITHROMYCIN INJ 500 MG VIAL IV PRN (04:17)
[2017-05-14] MEDS: HEPARIN SOD (PORCINE) 5,000 UNIT/ML 1 ML SYRINGE SUBCUT SCH ×3 (05:51→21:13)
[2017-05-14] MEDS: METHYLPREDNISOLONE INJ 125 MG/2 ML SDV IV SCH ×3 (05:52→21:13)
[2017-05-14 05:53] LABS: ABSOLUTE LYMPHOCYTES (AUTO) 0.8 10^3/uL (0.5-4.7); ABSOLUTE MONOCYTES (AUTO) 0.7 10^3/uL (0.1-1.4); ABSOLUTE NEUT (AUTO) 11.9 10^3/uL (1.7-8.2); HEMATOCRIT 34.2 % (36.0-47.0); HEMOGLOBIN 11.2 g/dL (12.0-15.5); LYMPHOCYTES % (AUTO) 5.7 % (13-45); MEAN CORPUSCULAR HEMOGLOBIN 26.4 pg (27.0-33.4); MEAN CORPUSCULAR HGB CONC 32.8 g/dL (32.0-36.0); MEAN CORPUSCULAR VOLUME 81 fl (80-97); MONOCYTES % (AUTO) 5.4 % (3-13); PLATELET COUNT 430 10^3/uL (150-450); RED BLOOD COUNT 4.24 10^6/uL (3.72-5.28); RED CELL DISTRIBUTION WIDTH 14.4 % (11.5-14.0); SEGMENTED NEUTROPHILS % (AUTO) 88.9 % (42-78); TOTAL CELLS COUNTED % (AUTO) 100 %; WHITE BLOOD COUNT 13.4 10^3/uL (4.0-10.5)
[2017-05-14 05:56] LABS: ARTERIAL BLOOD BASE EXCESS 0.1 mmol/L; ARTERIAL BLOOD H2CO3 1.23 mmol/L (1.05-1.35); ARTERIAL BLOOD HCO3 24.9 mmol/L (20-26); ARTERIAL BLOOD O2 SATURATION 98.7 % (94-98); ARTERIAL BLOOD PCO2 40.7 mmHg (35-45); ARTERIAL BLOOD PO2 132.9 mmHg (80-100); ARTERIAL BLOOD TOTAL CO2 26.1 mmol/L (21-25)
[2017-05-14 05:57] LABS: ARTERIAL BLOOD FIO2 30%
[2017-05-14 06:12] LABS: ALANINE AMINOTRANSFERASE 27 U/L (9-52); ALBUMIN 3.9 g/dL (3.5-5.0); ALKALINE PHOSPHATASE 59 U/L (38-126); ANION GAP 13 (5-19); ASPARTATE AMINO TRANSFERASE 13 U/L (14-36); BLOOD UREA NITROGEN 7 mg/dL (7-20); CALCIUM 8.8 mg/dL (8.4-10.2); CARBON DIOXIDE 23 mmol/L (22-30); CHLORIDE 104 mmol/L (98-107); GLUCOSE 129 mg/dL (75-110); SODIUM 139.7 mmol/L (137-145); TOTAL PROTEIN 5.8 g/dL (6.3-8.2)
[2017-05-14 06:16] LABS: BILIRUBIN,TOTAL < 0.1 mg/dL (0.2-1.3)
[2017-05-14 06:20] LABS: POTASSIUM 5.2 mmol/L (3.6-5.0)
--- NOTE | 2017-05-14 07:22 | EKG REPORT ---
SEVERITY:- ABNORMAL ECG - SINUS TACHYCARDIA INFERIOR Q WAVES, PROBABLY NORMAL VARIATION NONSPECIFIC REPOL ABNORMALITY, DIFFUSE LEADS : Confirmed by: Vignesh Nguyễn MD 14-May-2017 07:21:44
[2017-05-14] MEDS: NORMAL SALINE 1000 ML 1,000 ML IV SCH (07:48)
[2017-05-14] MEDS ORDERED: CEFTRIAXONE 1 GM/D5W RTU 1 GM/50 ML RTUPB IV SCH (08:00)
[2017-05-14 08:12] LABS: PHOSPHORUS 2.7 mg/dL (2.5-4.5)
--- NOTE | 2017-05-14 08:14 | RADIOLOGY REPORT (SQ) ---
EXAM DESCRIPTION: CHEST SINGLE VIEW COMPLETED DATE/TIME: 05/14/2017 8:02 am REASON FOR STUDY: Shortness of breath/ET Tube placement COMPARISON: 05/13/2017. EXAM PARAMETERS: NUMBER OF VIEWS: One view. TECHNIQUE: Single frontal radiographic view of the chest acquired. RADIATION DOSE: NA LIMITATIONS: None. FINDINGS: LUNGS AND PLEURA: Faint density in the left lower lobe unchanged. MEDIASTINUM AND HILAR STRUCTURES: No masses. Contour normal. HEART AND VASCULAR STRUCTURES: Heart normal in size. Normal vasculature. BONES: No acute findings. HARDWARE: Stable endotracheal tube, nasogastric tube, and central line. OTHER: No other significant finding. IMPRESSION: NO CHANGE IN APPEARANCE OF THE CHEST. TECHNICAL DOCUMENTATION: JOB ID: [id number] [employer]- All Rights Reserved Reading location - IP/workstation name: CONSULTING SERVICES [email or web address]
[2017-05-14] MEDS: IPRATROPIUM/ALBUTEROL 0.5-2.5 MG/3 ML AMPUL NEB SCH ×3 (08:15→23:54)
[2017-05-14] MEDS ORDERED: ACETAMINOPHEN SOLN 325 MG/10.15 ML UDCUP NG PRN (08:28)
--- NOTE | 2017-05-14 09:44 | RADIOLOGY REPORT (SQ) ---
EXAM DESCRIPTION: CHEST SINGLE VIEW COMPLETED DATE/TIME: 05/14/2017 9:34 am REASON FOR STUDY: CENTRAL LINE PLACEMENT COMPARISON: 05/14/2017 at 0608 hours. EXAM PARAMETERS: NUMBER OF VIEWS: One view. TECHNIQUE: Single frontal radiographic view of the chest acquired. RADIATION DOSE: NA LIMITATIONS: None. FINDINGS: LUNGS AND PLEURA: No pneumothorax. Faint density in the left lung base. MEDIASTINUM AND HILAR STRUCTURES: No masses. Contour normal. HEART AND VASCULAR STRUCTURES: Heart normal in size. Normal vasculature. BONES: No acute findings. HARDWARE: Tip of the central line at the level of the lower superior vena cava. Endotracheal tube an d nasogastric tube unchanged. Clips in the upper abdomen. OTHER: No other significant finding. IMPRESSION: CENTRAL LINE HAS BEEN RETRACTED AND THE TIP IS NOW AT THE LEVEL OF THE LOWER SUPERIOR VE NA CAVA. OTHERWISE NO CHANGE. TECHNICAL DOCUMENTATION: JOB ID: [id number] [employer]- All Rights Reserved Reading location - IP/workstation name: [email or web address]
[2017-05-14] MEDS ORDERED: CEFTRIAXONE SODIUM 1,000 MG in NORMAL SALINE 100 ML IV SCH (10:00)
[2017-05-14] MEDS: FAMOTIDINE INJ/PF 20 MG/2 ML SDV IV SCH ×2 (10:09→21:13)
[2017-05-14] MEDS: ARIPIPRAZOLE 5 MG TABLET NG SCH ×2 (10:10→21:13)
[2017-05-14] MEDS: AZITHROMYCIN 500 MG in DEXTROSE 5%-WATER 250 ML IV SCH (10:36)
[2017-05-14] MEDS: DOCUSATE SODIUM 100 MG/10 ML UDC NG SCH ×2 (10:37→18:12)
--- NOTE | 2017-05-14 11:45 | PDOC CONSULTATION ---
Consultation Consult Date: 05/14/17 Attending physician:: UMANG SINGER Consult reason:: resp failure/angioedema History of Present Illness Admission Date/PCP: 05/13/17 22:33 History of Present Illness: BERNICE DAVENPORT is a 26 year old female with a past medical history of depression, anxiety, chronic pain, severe allergies and recurrent anaphylaxis. Patient presents 12 hours after discharge from [facility] where she was treated for allergic reaction and discharged. She has subsequently had a return of symptoms with hives, difficulty speaking and swelling of the posterior pharynx. She self-administered an EpiPen, EMS administered additional epinephrine 1, Solu-Medrol and 25 mg of Benadryl. In the emergency room she is found to have stridor with erythema and narrowing of the posterior pharynx and subsequently intubated. She is now in the ICU intubated off of epi drip Past Medical History Cardiac Medical History: Reports: Myocardial Infarction - Previous "type II" [place]. Denies: Congestive Heart Failure, DVT, Hyperlipidema, Hypertension, Pulmonary Embolism Pulmonary Medical History: Reports: Asthma, Pneumonia Denies: Chronic Obstructive Pulmonary Disease (COPD), Sleep Apnea Neurological Medical History: Reports: Seizures - Seizure 2 at 15 years of age , never on antiepileptic. Endocrine Medical History: Denies: Diabetes Mellitus Type 1, Diabetes Mellitus Type 2, Hyperthyroidism, Hypothyroidism GI Medical History: Denies: Cirrhosis, Gastroesophageal Reflux Disease, Hepatitis Musculoskeltal Medical History: Reports: Arthritis Skin Medical History: Reports: Other - Atopy Psychiatric Medical History: Reports: Bipolar Disorder, Depression, General Anxiety Disorder Traumatic Medical History: Reports: Pneumothorax Hematology: Denies: Anemia Infectious Medical History: Denies: Clostridium Difficile, Methicillin-Resistant Staph Aureus Past Surgical History Past Surgical History: Reports: Cholecystectomy Social History Information Source: [facility] [place] Records Lives with: Family Smoking Status: Unknown if Ever Smoked Frequency of Alcohol Use: None Hx Recreational Drug Use: No Drugs: None Hx Prescription Drug Abuse: Yes - Suspected. - Advance Directive Resuscitation Status: Full Code Family History Family History: Arthritis, CAD, CVA, DM, Hyperlipidemia, Hypertension, Malignancy, Thyroid Disfunction Parental Family History Reviewed: No Children Family History Reviewed: No Sibling(s) Family History Reviewed.: No Medication/Allergy Home Medications: Diphenhydramine HCl [Benadryl 25 mg Capsule] 25 mg PO Q6HP PRN 08/03/16 Lamotrigine [Lamictal] 200 mg PO QHS 08/03/16 Bupropion HCl [Wellbutrin 75 mg Tablet] 75 mg PO BID 05/13/17 Carisoprodol [Soma 350 Mg Tablet] 350 mg PO TID 05/13/17 Etodolac 400 mg PO BID 05/13/17 Fluoxetine HCl 60 mg PO DAILY 05/13/17 Hydroxyzine HCl [Atarax 25 mg Tablet] 2 tab PO TID 05/13/17 Ondansetron [Zofran Odt] 8 mg PO Q6H 05/13/17 Propranolol HCl [Inderal 20 mg Tablet] 20 mg PO DAILY 05/13/17 Sumatriptan Succinate 6 mg SQ ASDIR PRN 05/13/17 Trazodone HCl 200 mg PO QHS 05/13/17 Allergies/Adverse Reactions: tree nut [Tree Nut] Allergy (Severe, Verified 05/13/17 19:11) banana [Banana] Allergy (Unknown, Verified 05/13/17 19:11) latex [Latex] Allergy (Verified 05/13/17 19:11) RASH? UNKNOWN peanut Allergy (Verified 05/13/17 19:11) Penicillins Allergy (Verified 05/13/17 19:11) Quinolones Allergy (Verified 05/13/17 19:11) Sulfa (Sulfonamide Antibiotics) Allergy (Verified 05/13/17 19:11) unknown peanuts Allergy (Severe, Uncoded 05/13/17 19:11) Review of Systems ROS unobtainable: Due to endotracheal tube Physical Exam Vital Signs: Temp Pulse Resp BP Pulse Ox 99.7 F 78 12 133/90 H 99 05/14/17 05:07 05/14/17 08:15 05/14/17 08:15 05/14/17 08:05 05/14/17 08:15 Intake & Output 05/13/17 05/14/17 05/15/17 06:59 06:59 06:59 Intake Total 1087 Output Total 2250 165 Balance -1163 -165 Weight 72.6 kg General appearance: PRESENT: no acute distress, obese, well-developed. ABSENT: cooperative, disheveled Head exam: PRESENT: atraumatic, normocephalic Eye exam: PRESENT: conjunctiva pale. ABSENT: nystagmus, periorbital swelling, scleral icterus Mouth exam: PRESENT: dry mucosa, neck supple, tongue midline, other - ET tube Neck exam: ABSENT: carotid bruit, JVD, lymphadenopathy, thyromegaly, tracheal deviation, tracheostomy Respiratory exam: PRESENT: decreased breath sounds, prolonged expiratory phas, rales, rhonchi, symmetrical, unlabored. ABSENT: retraction, stridor, tachypnea Cardiovascular exam: PRESENT: irregular rhythm, +S1, +S2 Pulses: PRESENT: normal radial pulses GI/Abdominal exam: PRESENT: diminished bowel sounds, soft Extremities exam: ABSENT: clubbing, joint swelling, pedal edema, +1 edema, +2 edema Musculoskeletal exam: PRESENT: normal inspection. ABSENT: deformity, dislocation Neurological exam: ABSENT: alert, awake Skin exam: PRESENT: dry, warm Results Laboratory Results: 05/14/17 05:30 05/14/17 05:30 05/14/17 05/14/17 05/14/17 05:30 05:30 05:30 WBC 13.4 H RBC 4.24 Hgb 11.2 L Hct 34.2 L MCV 81 MCH 26.4 L MCHC 32.8 RDW 14.4 H Plt Count 430 Seg Neutrophils % 88.9 H Lymphocytes % 5.7 L Monocytes % 5.4 Eosinophils % 0.0 Basophils % 0.0 Absolute Neutrophils 11.9 H Absolute Lymphocytes 0.8 Absolute Monocytes 0.7 Absolute Eosinophils 0.0 Absolute Basophils 0.0 Carbonic Acid 1.23 HCO3/H2CO3 Ratio 20:1 ABG pH 7.40 ABG pCO2 40.7 ABG pO2 132.9 H ABG HCO3 24.9 ABG O2 Saturation 98.7 H ABG Base Excess 0.1 FiO2 30% Sodium 139.7 Potassium 5.2 H D Chloride 104 Carbon Dioxide 23 Anion Gap 13 BUN 7 Creatinine 0.47 L Est GFR ( Amer) > 60 Est GFR (Non-Af Amer) > 60 Glucose 129 H Calcium 8.8 Phosphorus Magnesium Total Bilirubin < 0.1 L AST 13 L ALT 27 Alkaline Phosphatase 59 Total Protein 5.8 L Albumin 3.9 05/14/17 05:30 WBC RBC Hgb Hct MCV MCH MCHC RDW Plt Count Seg Neutrophils % Lymphocytes % Monocytes % Eosinophils % Basophils % Absolute Neutrophils Absolute Lymphocytes Absolute Monocytes Absolute Eosinophils Absolute Basophils Carbonic Acid HCO3/H2CO3 Ratio ABG pH ABG pCO2 ABG pO2 ABG HCO3 ABG O2 Saturation ABG Base Excess FiO2 Sodium Potassium Chloride Carbon Dioxide Anion Gap BUN Creatinine Est GFR ( Amer) Est GFR (Non-Af Amer) Glucose Calcium Phosphorus 2.7 Magnesium 1.6 Total Bilirubin AST ALT Alkaline Phosphatase Total Protein Albumin Impressions: Chest X-Ray 05/14/17 06:00 IMPRESSION: NO CHANGE IN APPEARANCE OF THE CHEST. Assessment & Plan - Diagnosis (1) Anaphylaxis Qualifiers: Encounter type: initial encounter Qualified Code(s): T78.2XXA - Anaphylactic shock, unspecified, initial encounter Is this a current diagnosis for this admission?: Yes Plan: at resurant peanut rampant (2) Respiratory distress Is this a current diagnosis for this admission?: Yes Plan: stable (3) Bipolar disorder Qualifiers: Active/Remission status: remission status unspecified Qualified Code(s): F31.9 - Bipolar disorder, unspecified Is this a current diagnosis for this admission?: Yes - Time Total Critical Time (Minutes): 70
--- NOTE | 2017-05-14 21:18 | PDOC PROGRESS REPORT ---
Subjective Progress Note for:: 05/14/17 Subjective:: 26 year old female w/ a PMH of anxiety, bipolar dissorder, chronic pain and many listed allergies. Presented w/ re-occuring anaphylaxis after receiving tx at [facility]. Patient was described as recently visiting a steak[place] in which peanut shells are tossed onto the floor. Patient has a significant peanut allergy. She received steroids, benedryl and an epi injection. Concern for her stridor and airway prompted intubation. Patient is stable on Versed, Dipravan, and Epinephrine drip this AM. Her central line was 3cm too deep, and was retracted. Plan was discussed with her Hand Pleater, and he plans to extubate tomorrow AM. She will continue on steroid tx overnight. Reason For Visit: ANAPHYLAXIS Physical Exam Vital Signs: Temp Pulse Resp BP Pulse Ox 100.0 F 75 12 126/84 H 97 05/14/17 19:30 05/14/17 16:13 05/14/17 18:06 05/14/17 18:06 05/14/17 18:06 Intake & Output 05/13/17 05/14/17 05/15/17 06:59 06:59 06:59 Intake Total 1087 2426 Output Total 2250 2590 Balance -1163 -164 Weight 72.6 kg General appearance: PRESENT: no acute distress, obese Head exam: PRESENT: atraumatic, normocephalic Eye exam: PRESENT: PERRLA. ABSENT: conjunctival injection Ear exam: PRESENT: normal external ear exam Mouth exam: PRESENT: moist, neck supple, tongue midline Neck exam: ABSENT: JVD, tenderness, thyromegaly Respiratory exam: ABSENT: accessory muscle use, rales, rhonchi, wheezes Cardiovascular exam: PRESENT: RRR, +S1, +S2. ABSENT: diastolic murmur, irregular rhythm, systolic murmur Pulses: PRESENT: normal radial pulses, normal dorsalis pedis pul Vascular exam: PRESENT: normal capillary refill. ABSENT: pallor GI/Abdominal exam: PRESENT: normal bowel sounds. ABSENT: distended, firm, mass Extremities exam: ABSENT: joint swelling, pedal edema Musculoskeletal exam: ABSENT: ambulatory, full ROM Neurological exam: PRESENT: altered - on sedation Psychiatric exam: ABSENT: agitated, flat affect, manic Skin exam: ABSENT: abrasion, cyanosis, pallor Results Laboratory Results: 05/14/17 05:30 05/14/17 05:30 05/14/17 05/14/17 05/14/17 05:30 05:30 05:30 WBC 13.4 H RBC 4.24 Hgb 11.2 L Hct 34.2 L MCV 81 MCH 26.4 L MCHC 32.8 RDW 14.4 H Plt Count 430 Seg Neutrophils % 88.9 H Lymphocytes % 5.7 L Monocytes % 5.4 Eosinophils % 0.0 Basophils % 0.0 Absolute Neutrophils 11.9 H Absolute Lymphocytes 0.8 Absolute Monocytes 0.7 Absolute Eosinophils 0.0 Absolute Basophils 0.0 Carbonic Acid 1.23 HCO3/H2CO3 Ratio 20:1 ABG pH 7.40 ABG pCO2 40.7 ABG pO2 132.9 H ABG HCO3 24.9 ABG O2 Saturation 98.7 H ABG Base Excess 0.1 FiO2 30% Sodium 139.7 Potassium 5.2 H D Chloride 104 Carbon Dioxide 23 Anion Gap 13 BUN 7 Creatinine 0.47 L Est GFR ( Amer) > 60 Est GFR (Non-Af Amer) > 60 Glucose 129 H Calcium 8.8 Phosphorus Magnesium Total Bilirubin < 0.1 L AST 13 L ALT 27 Alkaline Phosphatase 59 Total Protein 5.8 L Albumin 3.9 05/14/17 05:30 WBC RBC Hgb Hct MCV MCH MCHC RDW Plt Count Seg Neutrophils % Lymphocytes % Monocytes % Eosinophils % Basophils % Absolute Neutrophils Absolute Lymphocytes Absolute Monocytes Absolute Eosinophils Absolute Basophils Carbonic Acid HCO3/H2CO3 Ratio ABG pH ABG pCO2 ABG pO2 ABG HCO3 ABG O2 Saturation ABG Base Excess FiO2 Sodium Potassium Chloride Carbon Dioxide Anion Gap BUN Creatinine Est GFR ( Amer) Est GFR (Non-Af Amer) Glucose Calcium Phosphorus 2.7 Magnesium 1.6 Total Bilirubin AST ALT Alkaline Phosphatase Total Protein Albumin Impressions: Chest X-Ray 05/14/17 06:00 IMPRESSION: NO CHANGE IN APPEARANCE OF THE CHEST. Assessment & Plan - Plan Summary Plan Summary: 1. Anaphylactic Reaction. stable, wean off Epi drip. continue sedation with Versed and Dipravan until sedation vacation tomorrow AM, to allow Hand Pleater to extubate. 2. Acute Respiratory Failure supported with intubation on ventilation in ICU on sedation will attempt to extubate tomorrow 3. Bipolar dissorder. continue current medications.
[2017-05-15] MEDS: MIDAZOLAM HCL 50 MG/100 ML RTUINJ IV PRN ×2 (01:00→06:02)
[2017-05-15] MEDS: PROPOFOL 100 ML IV PRN ×2 (02:12→05:26)
[2017-05-15] MEDS: NORMAL SALINE 1000 ML 1,000 ML IV PRN (03:41)
[2017-05-15] MEDS: METHYLPREDNISOLONE INJ 125 MG/2 ML SDV IV SCH ×3 (05:26→21:39)
[2017-05-15] MEDS: HEPARIN SOD (PORCINE) 5,000 UNIT/ML 1 ML SYRINGE SUBCUT SCH ×3 (05:27→21:39)
[2017-05-15 05:52] LABS: ABSOLUTE LYMPHOCYTES (AUTO) 0.5 10^3/uL (0.5-4.7); ABSOLUTE MONOCYTES (AUTO) 0.5 10^3/uL (0.1-1.4); ABSOLUTE NEUT (AUTO) 7.8 10^3/uL (1.7-8.2); BASOPHILS % (AUTO) 0.1 % (0-2); HEMATOCRIT 30.7 % (36.0-47.0); HEMOGLOBIN 10.3 g/dL (12.0-15.5); LYMPHOCYTES % (AUTO) 5.6 % (13-45); MEAN CORPUSCULAR HEMOGLOBIN 27.1 pg (27.0-33.4); MEAN CORPUSCULAR HGB CONC 33.4 g/dL (32.0-36.0); MEAN CORPUSCULAR VOLUME 81 fl (80-97); MONOCYTES % (AUTO) 5.8 % (3-13); PLATELET COUNT 301 10^3/uL (150-450); RED BLOOD COUNT 3.78 10^6/uL (3.72-5.28); RED CELL DISTRIBUTION WIDTH 14.4 % (11.5-14.0); SEGMENTED NEUTROPHILS % (AUTO) 88.5 % (42-78); TOTAL CELLS COUNTED % (AUTO) 100 %; WHITE BLOOD COUNT 8.8 10^3/uL (4.0-10.5)
[2017-05-15 05:54] LABS: ARTERIAL BLOOD BASE EXCESS 0.4 mmol/L; ARTERIAL BLOOD FIO2 21%; ARTERIAL BLOOD H2CO3 1.09 mmol/L (1.05-1.35); ARTERIAL BLOOD HCO3 24.3 mmol/L (20-26); ARTERIAL BLOOD O2 SATURATION 95.8 % (94-98); ARTERIAL BLOOD PCO2 36.2 mmHg (35-45); ARTERIAL BLOOD PH 7.44 (7.35-7.45); ARTERIAL BLOOD TOTAL CO2 25.4 mmol/L (21-25)
[2017-05-15 06:05] LABS: ALANINE AMINOTRANSFERASE 25 U/L (9-52); ALBUMIN 3.4 g/dL (3.5-5.0); ALKALINE PHOSPHATASE 58 U/L (38-126); ANION GAP 8 (5-19); ASPARTATE AMINO TRANSFERASE 11 U/L (14-36); BLOOD UREA NITROGEN 6 mg/dL (7-20); CALCIUM 8.8 mg/dL (8.4-10.2); CARBON DIOXIDE 23 mmol/L (22-30); CHLORIDE 110 mmol/L (98-107); GLUCOSE 124 mg/dL (75-110); PHOSPHORUS 2.3 mg/dL (2.5-4.5); POTASSIUM 3.5 mmol/L (3.6-5.0); SODIUM 141.3 mmol/L (137-145); TOTAL PROTEIN 5.8 g/dL (6.3-8.2)
[2017-05-15 06:10] LABS: BILIRUBIN,TOTAL < 0.1 mg/dL (0.2-1.3)
[2017-05-15 06:14] LABS: INTERNATIONAL RATION (INR) 1.01; PARTIAL THROMBOPLASTIN TIME 29.9 SEC (23.5-35.8)
--- NOTE | 2017-05-15 08:13 | RADIOLOGY REPORT (SQ) ---
EXAM DESCRIPTION: CHEST SINGLE VIEW COMPLETED DATE/TIME: 05/15/2017 6:36 am REASON FOR STUDY: resp failure COMPARISON: 05/14/2017. EXAM PARAMETERS: NUMBER OF VIEWS: One view. TECHNIQUE: Single frontal radiographic view of the chest acquired. RADIATION DOSE: NA LIMITATIONS: None. FINDINGS: LUNGS AND PLEURA: Streaky left basilar density. Right lung relatively clear. MEDIASTINUM AND HILAR STRUCTURES: No masses. Contour normal. HEART AND VASCULAR STRUCTURES: Heart normal in size. Normal vasculature. BONES: No acute findings. HARDWARE: Stable endotracheal tube, nasogastric tube, and central line. OTHER: No other significant finding. IMPRESSION: LITTLE CHANGE IN APPEARANCE OF THE CHEST. MILD LEFT BASILAR ATELECTASIS VERSUS INFILTRA TE. TECHNICAL DOCUMENTATION: JOB ID: [id number] [employer]- All Rights Reserved Reading location - IP/workstation name: [email or web address]
[2017-05-15] MEDS: IPRATROPIUM/ALBUTEROL 0.5-2.5 MG/3 ML AMPUL NEB SCH ×2 (08:32→16:09)
[2017-05-15] MEDS: ARIPIPRAZOLE 5 MG TABLET NG SCH ×2 (08:46→21:38)
[2017-05-15] MEDS: AZITHROMYCIN 500 MG in DEXTROSE 5%-WATER 250 ML IV SCH (08:48)
[2017-05-15] MEDS: FAMOTIDINE INJ/PF 20 MG/2 ML SDV IV SCH ×2 (09:32→21:39)
[2017-05-15] MEDS: POTASSI CL 20 MEQ/50 ML RIDER 20 MEQ/50 ML RTUPB IV SCH ×2 (09:34→11:16)
[2017-05-15] MEDS: DOCUSATE SODIUM 100 MG/10 ML UDC NG SCH ×2 (09:35→19:46)
--- NOTE | 2017-05-15 19:19 | XCELERA REPORT ---
[address] [address] Transthoracic Echocardiogram Report Name: BERNICE DAVENPORT Age: 26 yrs Gender: Female : 1990 Patient Status: Inpatient Patient Location: ICU^603^A Study Date: 05/15/2017 10:10 AM Height: 60 in Weight: 161 lb BSA: 1.7 m2 Procedure: A complete two-dimensional transthoracic echocardiogram was performed (2D, M-mode, spectral and color flow Doppler). The study was technically adequate with some images being suboptimal in quality. Reason For Study: elevated BNP Ordering Physician: ELIGIO MEDINA Performed By: Jessica Montemayor Interpretation Summary The left ventricular ejection fraction is normal. There is normal left ventricular wall thickness. The left ventricle is grossly normal size. LV diastolic function could not be adequately assessed. Wall motion cannot be accurately commented on, but no definite regional wall motion abnormalities noted. The right ventricular systolic function is normal. The left atrial size is normal. The right atrium is normal in size There is a trace amount of mitral regurgitation There is no mitral valve stenosis. There is no aortic valve stenosis No aortic regurgitation is present. There is no tricuspid stenosis. No tricuspid regurgitation. The aortic root is not well visualized but is probably normal size. The inferior vena cava appeared normal and decreased > 50% with respiration (RAP 5-10 mmHg) There is no pericardial effusion. MMode/2D Measurements & Calculations RVDd: 2.3 cm LVIDd: 4.1 cm FS: 46.5 % Ao root diam: 2.8 cm IVSd: 0.79 cm LVIDs: 2.2 cm EDV(Teich): 72.5 ml LVPWd: 0.77 cmESV(Teich): 15.7 ml Ao root area: 6.0 cm2 EF(Teich): 78.3 % LA dimension: 2.9 cm LVOT diam: 1.9 cm LVOT area: 2.8 cm2 Doppler Measurements & Calculations MV E max quang: MV P1/2t max quang: Ao V2 max: LV V1 max P.8 cm/sec 134.9 cm/sec 136.4 cm/sec 7.9 mmHg MV A max quang: MV P1/2t: 47.3 msec Ao max PG: LV V1 max: 113.0 cm/sec MVA(P1/2t): 4.7 cm2 7.4 mmHg 140.4 cm/sec MV E/A: 1.2 MV dec slope: LISA(V,D): 2.8 cm2 835.2 cm/sec2 PA V2 max: 116.5 cm/sec PA max P.4 mmHg Left Ventricle The left ventricle is grossly normal size. There is normal left ventricular wall thickness. The left ventricular ejection fraction is normal. LV diastolic function could not be adequately assessed. Wall motion cannot be accurately commented on, but no definite regional wall motion abnormalities noted. Right Ventricle The right ventricle is grossly normal size. There is normal right ventricular wall thickness. The right ventricular systolic function is normal. Atria The right atrium is normal in size. The left atrial size is normal. Interarterial septum not well visualized and not well dopplered. Cannot comment on ASD/PFO presence. Mitral Valve The mitral valve is grossly normal. There is no mitral valve stenosis. There is a trace amount of mitral regurgitation. Aortic Valve The aortic valve is grossly normal. There is no aortic valve stenosis. No aortic regurgitation is present. Tricuspid Valve The tricuspid valve is not well visualized, but is grossly normal. There is no tricuspid stenosis. No tricuspid regurgitation. Pulmonic Valve The pulmonic valve is not well visualized. There is no pulmonic valvular stenosis. There is no pulmonic valvular regurgitation. Great Vessels The aortic root is not well visualized but is probably normal size. The inferior vena cava appeared normal and decreased > 50% with respiration (RAP 5-10 mmHg). Effusions There is no pericardial effusion. : ELIGIO MEDINA > Dutch Chacon
[2017-05-15] MEDS: ONDANSETRON HCL INJ/PF 4 MG/2 ML SDV IV PRN (20:32)
[2017-05-15 21:26] LABS: ANION GAP 7 (5-19); BLOOD UREA NITROGEN 9 mg/dL (7-20); CALCIUM 9.2 mg/dL (8.4-10.2); CARBON DIOXIDE 26 mmol/L (22-30); CHLORIDE 109 mmol/L (98-107); GLUCOSE 110 mg/dL (75-110); POTASSIUM 3.8 mmol/L (3.6-5.0); SODIUM 142.2 mmol/L (137-145)
--- NOTE | 2017-05-15 23:17 | PDOC PROGRESS REPORT ---
Subjective Progress Note for:: 05/15/17 Subjective:: 26 yo female with angioedema secondary to allergy, required intubation for airway protection. Successfully extubated today. On high dose IV steroids, weaning down. Reason For Visit: ANAPHYLAXIS Physical Exam Vital Signs: Temp Pulse Resp BP Pulse Ox 99.7 F 75 16 131/87 H 99 05/15/17 21:53 05/15/17 16:09 05/15/17 20:14 05/15/17 20:14 05/15/17 20:14 Intake & Output 05/14/17 05/15/17 05/16/17 06:59 06:59 06:59 Intake Total 1087 3714 1423 Output Total 2250 3590 2475 Balance -1163 124 -1052 Weight 72.6 kg 73.1 kg General appearance: PRESENT: no acute distress, obese Head exam: PRESENT: atraumatic, normocephalic Eye exam: PRESENT: EOMI, PERRLA. ABSENT: conjunctiva pink Ear exam: PRESENT: normal external ear exam Mouth exam: PRESENT: moist, neck supple, tongue midline Neck exam: ABSENT: tenderness, thyromegaly Respiratory exam: ABSENT: rales, rhonchi, wheezes Cardiovascular exam: PRESENT: RRR, +S1, +S2 Pulses: PRESENT: normal radial pulses, normal dorsalis pedis pul Vascular exam: PRESENT: normal capillary refill. ABSENT: pallor GI/Abdominal exam: ABSENT: mass, normal bowel sounds, rigid, soft Extremities exam: ABSENT: calf tenderness, joint swelling Musculoskeletal exam: PRESENT: full ROM Neurological exam: PRESENT: alert, oriented to person, oriented to place, oriented to time Psychiatric exam: PRESENT: anxious. ABSENT: agitated, flat affect Focused psych exam: ABSENT: delusional, paranoid Skin exam: PRESENT: dry, warm. ABSENT: cyanosis, normal color Results Laboratory Results: 05/15/17 05:38 05/15/17 20:20 05/15/17 05/15/17 05/15/17 05:38 05:38 05:38 WBC 8.8 RBC 3.78 Hgb 10.3 L Hct 30.7 L MCV 81 MCH 27.1 MCHC 33.4 RDW 14.4 H Plt Count 301 Seg Neutrophils % 88.5 H Lymphocytes % 5.6 L Monocytes % 5.8 Eosinophils % 0.0 Basophils % 0.1 Absolute Neutrophils 7.8 Absolute Lymphocytes 0.5 Absolute Monocytes 0.5 Absolute Eosinophils 0.0 Absolute Basophils 0.0 Carbonic Acid 1.09 HCO3/H2CO3 Ratio 22:1 ABG pH 7.44 ABG pCO2 36.2 ABG pO2 76.0 L ABG HCO3 24.3 ABG O2 Saturation 95.8 ABG Base Excess 0.4 FiO2 21% Sodium 141.3 Potassium 3.5 L Chloride 110 H Carbon Dioxide 23 Anion Gap 8 BUN 6 L Creatinine 0.45 L Est GFR ( Amer) > 60 Est GFR (Non-Af Amer) > 60 Glucose 124 H Calcium 8.8 Phosphorus 2.3 L Magnesium 1.9 Total Bilirubin < 0.1 L AST 11 L ALT 25 Alkaline Phosphatase 58 Total Protein 5.8 L Albumin 3.4 L 05/15/17 20:20 WBC RBC Hgb Hct MCV MCH MCHC RDW Plt Count Seg Neutrophils % Lymphocytes % Monocytes % Eosinophils % Basophils % Absolute Neutrophils Absolute Lymphocytes Absolute Monocytes Absolute Eosinophils Absolute Basophils Carbonic Acid HCO3/H2CO3 Ratio ABG pH ABG pCO2 ABG pO2 ABG HCO3 ABG O2 Saturation ABG Base Excess FiO2 Sodium 142.2 Potassium 3.8 Chloride 109 H Carbon Dioxide 26 Anion Gap 7 BUN 9 Creatinine 0.50 L Est GFR ( Amer) > 60 Est GFR (Non-Af Amer) > 60 Glucose 110 Calcium 9.2 Phosphorus Magnesium 2.1 Total Bilirubin AST ALT Alkaline Phosphatase Total Protein Albumin 05/15/17 05:38 NT-Pro-B Natriuret Pep 508 H Impressions: Chest X-Ray 05/15/17 06:00 IMPRESSION: LITTLE CHANGE IN APPEARANCE OF THE CHEST. MILD LEFT BASILAR ATELECTASIS VERSUS INFILTRATE. Assessment & Plan - Plan Summary Plan Summary: 1. Anaphylactic Reaction, with airway compromise extubated today by Pulmonary medicine will wean her high dose steroids. 2. Acute Respiratory Failure extubated. supportive care. 3. Bipolar dissorder. continue current medications.
[2017-05-15] MEDS ORDERED: ACETAMINOPHEN 325 MG TABLET ONE (23:44)
[2017-05-16] MEDS ORDERED: ACETAMINOPHEN 325 MG TABLET PO PRN (01:01)
[2017-05-16] MEDS: IPRATROPIUM/ALBUTEROL 0.5-2.5 MG/3 ML AMPUL NEB SCH ×3 (01:05→16:36)
[2017-05-16] MEDS: NORMAL SALINE 1000 ML 1,000 ML IV PRN (03:20)
[2017-05-16] MEDS: HEPARIN SOD (PORCINE) 5,000 UNIT/ML 1 ML SYRINGE SUBCUT SCH ×3 (05:20→21:10)
[2017-05-16 05:33] LABS: ABSOLUTE LYMPHOCYTES (AUTO) 0.6 10^3/uL (0.5-4.7); ABSOLUTE MONOCYTES (AUTO) 0.4 10^3/uL (0.1-1.4); ABSOLUTE NEUT (AUTO) 5.6 10^3/uL (1.7-8.2); BASOPHILS % (AUTO) 0.1 % (0-2); HEMATOCRIT 28.9 % (36.0-47.0); HEMOGLOBIN 9.7 g/dL (12.0-15.5); LYMPHOCYTES % (AUTO) 9.5 % (13-45); MEAN CORPUSCULAR HEMOGLOBIN 27.1 pg (27.0-33.4); MEAN CORPUSCULAR HGB CONC 33.6 g/dL (32.0-36.0); MEAN CORPUSCULAR VOLUME 81 fl (80-97); PLATELET COUNT 291 10^3/uL (150-450); RED BLOOD COUNT 3.59 10^6/uL (3.72-5.28); RED CELL DISTRIBUTION WIDTH 14.5 % (11.5-14.0); SEGMENTED NEUTROPHILS % (AUTO) 84.4 % (42-78); TOTAL CELLS COUNTED % (AUTO) 100 %; WHITE BLOOD COUNT 6.6 10^3/uL (4.0-10.5)
[2017-05-16 05:50] LABS: ALANINE AMINOTRANSFERASE 31 U/L (9-52); ALBUMIN 3.3 g/dL (3.5-5.0); ALKALINE PHOSPHATASE 49 U/L (38-126); ANION GAP 7 (5-19); ASPARTATE AMINO TRANSFERASE 15 U/L (14-36); BILIRUBIN,DIRECT 0.1 mg/dL (0.0-0.4); BILIRUBIN,TOTAL 0.2 mg/dL (0.2-1.3); BLOOD UREA NITROGEN 15 mg/dL (7-20); CALCIUM 8.9 mg/dL (8.4-10.2); CARBON DIOXIDE 28 mmol/L (22-30); CHLORIDE 107 mmol/L (98-107); GLUCOSE 113 mg/dL (75-110); PHOSPHORUS 4.2 mg/dL (2.5-4.5); POTASSIUM 4.2 mmol/L (3.6-5.0); TOTAL PROTEIN 5.2 g/dL (6.3-8.2)
[2017-05-16] MEDS ORDERED: METHYLPREDNISOLONE INJ 40 MG/1 ML SDV IV SCH ×2 (06:00→09:09)
--- NOTE | 2017-05-16 07:33 | RADIOLOGY REPORT (SQ) ---
EXAM DESCRIPTION: CHEST SINGLE VIEW CLINICAL HISTORY: 26 years Female, pna COMPARISON: 05/15/17. NUMBER OF VIEWS/TECHNIQUE: 1/AP LIMITATIONS: None. FINDINGS: Small streakiness of the left lower lobe, normal cardiac silhouette, adequate appearing right jugular central line. No pneumothorax. No acute bone defect. IMPRESSION: Interval improvement with small residual streakiness of the left lower lobe.
[2017-05-16] MEDS: AZITHROMYCIN 500 MG in DEXTROSE 5%-WATER 250 ML IV SCH (07:48)
[2017-05-16 08:24] LABS: ARTERIAL BLOOD BASE EXCESS 0.5 mmol/L; ARTERIAL BLOOD H2CO3 1.02 mmol/L (1.05-1.35); ARTERIAL BLOOD HCO3 23.9 mmol/L (20-26); ARTERIAL BLOOD O2 SATURATION 97.3 % (94-98); ARTERIAL BLOOD PH 7.47 (7.35-7.45); ARTERIAL BLOOD PO2 88.8 mmHg (80-100)
[2017-05-16 08:40] LABS: ARTERIAL BLOOD FIO2 2L
--- NOTE | 2017-05-16 09:34 | PROGRESS NOTE E ---
Progress Note NAME: BERNICE DAVENPORT : 1990 AGE: 26Y DATE: 05/16/2017 ROOM: 603 SUBJECTIVE: The patient is a pleasant 26-year-old female who was admitted with angioedema secondary to allergy to peanuts. The patient extubated successfully yesterday and she is feeling much better today. OBJECTIVE: GENERAL: Patient lying in bed comfortable, not in distress. VITAL SIGNS: Temperature 98.4, heart rate 46, blood pressure 110/80, respiratory rate 13, oxygen saturation 96% on room air. HEENT: Head normocephalic, atraumatic. Pupils round, reactive to light and accommodation bilaterally. Extraocular movements intact. Ears: Tympanic membranes intact bilaterally. No discharge from the ears. No discharge from the nose. NECK: Supple. No increased JVD. No thyromegaly. No lymphadenopathy. CARDIOVASCULAR: Normal S1, S2. Regular rate and rhythm. No murmur. No gallop. RESPIRATORY: Lungs clear. LABORATORIES: Sodium 142, potassium 4.2, chloride is 107, white blood count 6.6, hemoglobin 9.7. ASSESSMENT: 1. ANGIOEDEMA SECONDARY TO A PEANUT ALLERGY. 2. ACUTE RESPIRATORY FAILURE. 3. BIPOLAR DISORDER. PLAN: 1. The patient extubated. 2. Will downgrade her to the MICU. Taper Solu-Medrol. Lab tomorrow morning. Possible discharge home in 1 or 2 days. DISPOSITION: Discharge home probably tomorrow or after tomorrow. DICTATING PHYSICIAN: CORY LAIRD M.D. [id number] TORIY#: [id number] ID: [id number] JOB#: [id number] ACCT: [id number] cc: >
[2017-05-16] MEDS: FAMOTIDINE 20 MG TABLET PO SCH ×2 (10:50→21:10)
[2017-05-16] MEDS: ARIPIPRAZOLE 5 MG TABLET PO SCH ×2 (10:51→21:10)
[2017-05-16] MEDS: DOCUSATE SODIUM 100 MG CAPSULE PO SCH ×2 (10:53→18:02)
[2017-05-16] MEDS ORDERED: IPRATROPIUM/ALBUTEROL 0.5-2.5 MG/3 ML AMPUL NEB PRN (17:59)
[2017-05-16] MEDS: ONDANSETRON HCL INJ/PF 4 MG/2 ML SDV IV PRN (18:09)
[2017-05-17] MEDS ORDERED: ZOLPIDEM TARTRATE 5 MG TABLET ONE (00:13)
[2017-05-17] MEDS ORDERED: ZOLPIDEM TARTRATE 5 MG TABLET PO ONE (00:30)
[2017-05-17] MEDS: HEPARIN SOD (PORCINE) 5,000 UNIT/ML 1 ML SYRINGE SUBCUT SCH (05:11)
[2017-05-17 07:56] VITALS: BP 108/72
[2017-05-17] MEDS: AZITHROMYCIN 500 MG in DEXTROSE 5%-WATER 250 ML IV SCH (08:39)
[2017-05-17] MEDS: DOCUSATE SODIUM 100 MG CAPSULE PO SCH (08:40)
--- NOTE | 2017-05-17 09:14 | DISCHARGE SUMMARY E ---
Discharge Summary NAME: BERNICE DAVENPORT : 1990 AGE: 26Y ADMITTED: 05/13/2017 DISCHARGED: 05/17/2017 ADMISSION DIAGNOSES: 1. Anaphylaxis. 2. Respiratory distress. DISCHARGE DIAGNOSES: 1. Acute respiratory failure secondary to angioedema prophylaxis, status post intubation and extubation. 2. Anaphylaxis secondary to peanuts. CONSULTATIONS: Pulmonary IMAGING: Echocardiogram was a normal ejection fraction. HOSPITAL COURSE: The patient is a pleasant 26-year-old female. The patient came to the Emergency Room respiratory distress with stridor and hives after she had exposure to peanuts. The patient has a history of depression and anxiety, chronic pain syndrome. She had severe allergic recurrent anaphylaxis, so she is using actually an EpiPen for the allergic reaction. She was put on Cipro after she presented there and was treated for an allergic reaction and discharged home. Subsequently, she had again symptoms of hives and began with swelling, stridor, and she received Epi, Solu-Medrol, and then the patient intubated here because of respiratory distress and mechanically ventilated. This was on 05/14, and she was extubated on 05/16, yesterday, and transferred to the floor. She remained in ICU because there was no bed on the floor. The patient's stridor resolved and respiratory symptoms resolved. She was doing very well, and she is saturating at 99% on room air. The patient should be discharged home today. She will be discharged on prednisone 40 mg taper, and the patient has an Epi. She will use the Epi-Pen as needed. She also will continue her home medication. PHYSICAL EXAM: GENERAL: The patient is lying in bed, comfortable, not in distress. VITAL SIGNS: Blood pressure is 108/72, temperature 97.6, heart rate 83, respiratory 12, saturation 95%. HEENT: Normocephalic, atraumatic. Pupils are round and reactive to light and accommodation bilaterally. Extraocular movements intact. Ears: Tympanic membranes intact bilaterally. No discharge from the ears. No discharge from the nose. NECK: Supple. No increased JVD. No thyromegaly. No lymphadenopathy. CARDIOVASCULAR: Normal S1 and S2. Regular rate and rhythm. No murmur. No gallop. RESPIRATORY: Lungs clear. ABDOMEN: Soft, nontender. MUSCULOSKELETAL: No edema. NEUROLOGICAL: Awake, alert. SKIN: No rash. LABORATORY DATA: Labs today, white blood cell count 6.6, hemoglobin 9.7, hematocrit 28.9. DISCHARGE DISPOSITION: Discharge the patient home. MEDICATIONS: Prednisone 40 mg taper, Pepcid 20 mg twice a day, Benadryl 25 mg p.o. every 6 hours for allergic reaction, Epi-Pen for allergic reaction and stridor. Continue her home medications of Soma 350 mg t.i.d., Wellbutrin 75 mg b.i.d., diclofenac epolamine patch, trazodone 200 mg at bedtime, Lamictal 200 mg at bedtime, Atarax 25 mg t.i.d., p.r.n., Prozac 60 mg daily, Abilify 12 mg every 12 hours. FOLLOWUP: Followup with primary care physician in a week. DIET: Regular diet. SPECIAL INSTRUCTIONS: Please avoid peanuts products. Time spent 40 minutes. DICTATING PHYSICIAN: CORY LAIRD M.D. [id number] PHY#: [id number] ID: [id number] JOB#: [id number] ACCT: [id number] cc:Chad PENG M.D. > MTDD
[2017-05-17] MEDS ORDERED: PREDNISOLONE SOD PHOS 15 MG/5 ML ORAL SYRING PO SCH (10:00)
[2017-05-17] MEDS ORDERED: AZITHROMYCIN 250 MG TABLET PO ONE (10:00)
--- NOTE | 2017-05-18 22:20 | PDOC PROGRESS REPORT ---
Subjective Progress Note for:: 05/15/17 Subjective:: extubate Reason For Visit: ANAPHYLAXIS Physical Exam Vital Signs: Temp Pulse Resp BP Pulse Ox 98.8 F 73 15 135/84 H 96 05/15/17 05:24 05/15/17 08:00 05/15/17 06:06 05/15/17 06:06 05/15/17 06:06 Intake & Output 05/14/17 05/15/17 05/16/17 06:59 06:59 06:59 Intake Total 1087 3714 Output Total 2250 3590 Balance -1163 124 Weight 72.6 kg 73.1 kg General appearance: PRESENT: no acute distress, disheveled, obese, well- developed. ABSENT: cooperative Head exam: PRESENT: atraumatic, normocephalic Eye exam: PRESENT: conjunctiva pale. ABSENT: nystagmus, periorbital swelling, scleral icterus Mouth exam: PRESENT: dry mucosa, neck supple, tongue midline, other - ET tube Neck exam: ABSENT: carotid bruit, JVD, lymphadenopathy, thyromegaly, tracheal deviation, tracheostomy Respiratory exam: PRESENT: decreased breath sounds, prolonged expiratory phas, rhonchi, symmetrical, unlabored. ABSENT: stridor Cardiovascular exam: PRESENT: RRR, +S1, +S2 Pulses: PRESENT: normal radial pulses GI/Abdominal exam: PRESENT: diminished bowel sounds, soft Extremities exam: ABSENT: calf tenderness, clubbing, joint swelling Musculoskeletal exam: ABSENT: ambulatory, deformity, dislocation Neurological exam: ABSENT: alert, awake, oriented to person Skin exam: PRESENT: dry, warm Results Laboratory Results: 05/15/17 05:38 05/15/17 05:38 05/15/17 05/15/17 05/15/17 05:38 05:38 05:38 WBC 8.8 RBC 3.78 Hgb 10.3 L Hct 30.7 L MCV 81 MCH 27.1 MCHC 33.4 RDW 14.4 H Plt Count 301 Seg Neutrophils % 88.5 H Lymphocytes % 5.6 L Monocytes % 5.8 Eosinophils % 0.0 Basophils % 0.1 Absolute Neutrophils 7.8 Absolute Lymphocytes 0.5 Absolute Monocytes 0.5 Absolute Eosinophils 0.0 Absolute Basophils 0.0 Carbonic Acid 1.09 HCO3/H2CO3 Ratio 22:1 ABG pH 7.44 ABG pCO2 36.2 ABG pO2 76.0 L ABG HCO3 24.3 ABG O2 Saturation 95.8 ABG Base Excess 0.4 FiO2 21% Sodium 141.3 Potassium 3.5 L Chloride 110 H Carbon Dioxide 23 Anion Gap 8 BUN 6 L Creatinine 0.45 L Est GFR ( Amer) > 60 Est GFR (Non-Af Amer) > 60 Glucose 124 H Calcium 8.8 Phosphorus 2.3 L Magnesium 1.9 Total Bilirubin < 0.1 L AST 11 L ALT 25 Alkaline Phosphatase 58 Total Protein 5.8 L Albumin 3.4 L 05/15/17 05:38 NT-Pro-B Natriuret Pep 508 H Impressions: Chest X-Ray 05/15/17 06:00 IMPRESSION: LITTLE CHANGE IN APPEARANCE OF THE CHEST. MILD LEFT BASILAR ATELECTASIS VERSUS INFILTRATE. Assessment & Plan - Diagnosis (1) Anaphylaxis Qualifiers: Encounter type: initial encounter Qualified Code(s): T78.2XXA - Anaphylactic shock, unspecified, initial encounter Is this a current diagnosis for this admission?: Yes Plan: at [employer] peanut (2) Respiratory distress Is this a current diagnosis for this admission?: Yes Plan: srr;min vent;FIO2 ;airway pressures ok ---->extubate (3) Bipolar disorder Qualifiers: Active/Remission status: remission status unspecified Qualified Code(s): F31.9 - Bipolar disorder, unspecified Is this a current diagnosis for this admission?: Yes - Time Total Critical Time (Minutes): 55
--- NOTE | 2017-05-18 22:23 | PDOC PROGRESS REPORT ---
Subjective Progress Note for:: 05/16/17 Subjective:: 24 h s/p extubation stable Reason For Visit: ANAPHYLAXIS Physical Exam Vital Signs: Temp Pulse Resp BP Pulse Ox 98.8 F 46 L 13 130/80 H 97 05/16/17 07:49 05/16/17 07:49 05/16/17 07:49 05/16/17 07:49 05/16/17 07:49 Intake & Output 05/15/17 05/16/17 05/17/17 06:59 06:59 06:59 Intake Total 3714 2518 Output Total 3590 3300 85 Balance 124 -782 -85 Weight 73.1 kg 74 kg General appearance: PRESENT: no acute distress, cooperative, disheveled, obese, well-developed, well-nourished Head exam: PRESENT: atraumatic, normocephalic Eye exam: PRESENT: conjunctiva pale, EOMI. ABSENT: nystagmus, periorbital swelling, scleral icterus Mouth exam: PRESENT: dry mucosa, neck supple, tongue midline Respiratory exam: PRESENT: decreased breath sounds, prolonged expiratory phas, rales, rhonchi, symmetrical, unlabored. ABSENT: retraction, stridor, tachypnea Cardiovascular exam: PRESENT: irregular rhythm, tachycardia Pulses: PRESENT: normal radial pulses GI/Abdominal exam: PRESENT: diminished bowel sounds, soft Extremities exam: PRESENT: full ROM. ABSENT: clubbing, joint swelling Musculoskeletal exam: PRESENT: ambulatory. ABSENT: deformity, dislocation Neurological exam: PRESENT: alert, awake Psychiatric exam: PRESENT: flat affect Skin exam: PRESENT: dry, warm Results Laboratory Results: 05/16/17 05:20 05/16/17 05:20 05/15/17 05/16/17 05/16/17 20:20 05:20 05:20 WBC 6.6 RBC 3.59 L Hgb 9.7 L Hct 28.9 L MCV 81 MCH 27.1 MCHC 33.6 RDW 14.5 H Plt Count 291 Seg Neutrophils % 84.4 H Lymphocytes % 9.5 L Monocytes % 6.0 Eosinophils % 0.0 Basophils % 0.1 Absolute Neutrophils 5.6 Absolute Lymphocytes 0.6 Absolute Monocytes 0.4 Absolute Eosinophils 0.0 Absolute Basophils 0.0 Carbonic Acid HCO3/H2CO3 Ratio ABG pH ABG pCO2 ABG pO2 ABG HCO3 ABG O2 Saturation ABG Base Excess FiO2 Sodium 142.2 142.0 Potassium 3.8 4.2 Chloride 109 H 107 Carbon Dioxide 26 28 Anion Gap 7 7 BUN 9 15 Creatinine 0.50 L 0.52 Est GFR ( Amer) > 60 > 60 Est GFR (Non-Af Amer) > 60 > 60 Glucose 110 113 H Calcium 9.2 8.9 Phosphorus 4.2 Magnesium 2.1 2.1 Total Bilirubin 0.2 AST 15 ALT 31 Alkaline Phosphatase 49 Total Protein 5.2 L Albumin 3.3 L 05/16/17 08:15 WBC RBC Hgb Hct MCV MCH MCHC RDW Plt Count Seg Neutrophils % Lymphocytes % Monocytes % Eosinophils % Basophils % Absolute Neutrophils Absolute Lymphocytes Absolute Monocytes Absolute Eosinophils Absolute Basophils Carbonic Acid 1.02 L HCO3/H2CO3 Ratio 23:1 ABG pH 7.47 H ABG pCO2 34.0 L ABG pO2 88.8 ABG HCO3 23.9 ABG O2 Saturation 97.3 ABG Base Excess 0.5 FiO2 2L Sodium Potassium Chloride Carbon Dioxide Anion Gap BUN Creatinine Est GFR ( Amer) Est GFR (Non-Af Amer) Glucose Calcium Phosphorus Magnesium Total Bilirubin AST ALT Alkaline Phosphatase Total Protein Albumin 05/15/17 05:38 NT-Pro-B Natriuret Pep 508 H Impressions: Chest X-Ray 05/16/17 06:00 IMPRESSION: Interval improvement with small residual streakiness of the left lower lobe. Assessment & Plan - Diagnosis (1) Anaphylaxis Qualifiers: Encounter type: initial encounter Qualified Code(s): T78.2XXA - Anaphylactic shock, unspecified, initial encounter Is this a current diagnosis for this admission?: Yes Plan: improving (2) Respiratory distress Is this a current diagnosis for this admission?: Yes Plan: 24h s/p extubation stable (3) Bipolar disorder Qualifiers: Active/Remission status: remission status unspecified Qualified Code(s): F31.9 - Bipolar disorder, unspecified Is this a current diagnosis for this admission?: Yes - Time Total Critical Time (Minutes): 40
--- NOTE | 2017-05-18 22:25 | PDOC PROGRESS REPORT ---
Subjective Progress Note for:: 05/17/17 Subjective:: 48 h s/p extubation stable Reason For Visit: ANAPHYLAXIS Physical Exam Vital Signs: Temp Pulse Resp BP Pulse Ox 97.6 F 83 12 108/72 95 05/17/17 07:55 05/17/17 07:55 05/17/17 07:55 05/17/17 07:55 05/17/17 07:55 Intake & Output 05/16/17 05/17/17 05/18/17 06:59 06:59 06:59 Intake Total 2518 1096 Output Total 3300 785 Balance -782 311 Weight 74 kg 73.4 kg General appearance: PRESENT: no acute distress, cooperative, obese, well- developed, well-nourished. ABSENT: disheveled, hard of hearing Head exam: PRESENT: atraumatic, normocephalic Eye exam: PRESENT: conjunctiva pale, EOMI. ABSENT: nystagmus, periorbital swelling, scleral icterus Mouth exam: PRESENT: moist, neck supple, tongue midline Neck exam: ABSENT: carotid bruit, JVD, lymphadenopathy, thyromegaly, tracheal deviation, tracheostomy Respiratory exam: PRESENT: decreased breath sounds, prolonged expiratory phas, rales, rhonchi, symmetrical, unlabored. ABSENT: retraction, stridor, tachypnea Cardiovascular exam: PRESENT: irregular rhythm Pulses: PRESENT: normal radial pulses GI/Abdominal exam: PRESENT: diminished bowel sounds, soft Extremities exam: PRESENT: full ROM. ABSENT: calf tenderness, clubbing Musculoskeletal exam: PRESENT: ambulatory, full ROM. ABSENT: deformity, dislocation Neurological exam: PRESENT: alert, awake Psychiatric exam: PRESENT: normal mood Skin exam: PRESENT: dry, warm Results Laboratory Results: 05/16/17 05:20 05/16/17 05:20 05/16/17 08:15 Carbonic Acid 1.02 L HCO3/H2CO3 Ratio 23:1 ABG pH 7.47 H ABG pCO2 34.0 L ABG pO2 88.8 ABG HCO3 23.9 ABG O2 Saturation 97.3 ABG Base Excess 0.5 FiO2 2L 05/15/17 05:38 NT-Pro-B Natriuret Pep 508 H Impressions: Chest X-Ray 05/16/17 06:00 IMPRESSION: Interval improvement with small residual streakiness of the left lower lobe. Assessment & Plan - Diagnosis (1) Anaphylaxis Qualifiers: Encounter type: initial encounter Qualified Code(s): T78.2XXA - Anaphylactic shock, unspecified, initial encounter Is this a current diagnosis for this admission?: Yes Plan: resolved (2) Respiratory distress Is this a current diagnosis for this admission?: Yes Plan: resolved (3) Bipolar disorder Qualifiers: Active/Remission status: remission status unspecified Qualified Code(s): F31.9 - Bipolar disorder, unspecified Is this a current diagnosis for this admission?: Yes - Time Total Critical Time (Minutes): 35
== END 2017-05-17 09:06 | disposition home or self-care (01) | DRG 915 ==
LOC: ER 19:10 → EH 22:33 → ICU 05-14 00:51
PROVIDERS: ADMIT Internal Medicine; ATTEND Internal Medicine
PROC: 5A1945Z Respiratory Ventilation, 24-96 Consecutive Hours (ICD-10-PCS; principal; 2017-05-13)
PROC: 0BH17EZ Insertion of Endotracheal Airway into Trachea, Via Natural or Artificial Opening (ICD-10-PCS; 2017-05-13)
PROC: 3E0F73Z Introduction of Anti-inflammatory into Respiratory Tract, Via Natural or Artificial Opening (ICD-10-PCS; 2017-05-14)
DX: T78.01XA Anaphylactic reaction due to peanuts, initial encounter (principal); J96.01 Acute respiratory failure with hypoxia; G89.4 Chronic pain syndrome; J45.909 Unspecified asthma, uncomplicated; M19.90 Unspecified osteoarthritis, unspecified site; F31.9 Bipolar disorder, unspecified; Z78.1 Physical restraint status; F41.1 Generalized anxiety disorder; I25.2 Old myocardial infarction; Z90.49 Acquired absence of other specified parts of digestive tract; Z79.899 Other long term (current) drug therapy; Z91.040 Latex allergy status; Z91.010 Allergy to peanuts; Z88.0 Allergy status to penicillin; Z88.2 Allergy status to sulfonamides; Z88.8 Allergy status to other drugs, medicaments and biological substances; Z91.018 Allergy to other foods; Z82.61 Family history of arthritis; Z82.49 Family history of ischemic heart disease and other diseases of the circulatory system; Z82.3 Family history of stroke; Z83.3 Family history of diabetes mellitus; Z80.9 Family history of malignant neoplasm, unspecified
CPT/HCPCS: 36415; 71045; 80048; 80053; 80069; 80307; 81001; 82803; 82962; 83605; 83735; 83880; 84100; 84703; 85025; 85610; 85730; 93005; 93010; 93306; 94002; 94003; 94640; 96361; 96374; 99291; C1751; J0171; J0456; J1200; J1644; J2250; J2405; J2704; J2920; J2930; J3010; J3480; J3490; J7030; J7060; J7620; S0028

== ENCOUNTER 2017-05-22 13:34 | Emergency (ER) | payer BC ==
[2017-05-22] MEDS ORDERED: BENZONATATE 100 MG CAPSULE PO ONE (14:39)
--- NOTE | 2017-05-22 14:41 | ER Document Report ---
ED Medical Screen (RME) - General Chief Complaint: Productive Cough Stated Complaint: COUGH UP BLOOD Time Seen by Provider: 05/22/17 14:27 Mode of Arrival: Ambulatory Information source: Patient Notes: 26-year-old female who is intubated for anaphylaxis presents with complaints of productive cough since being extubated. I have greeted and performed a rapid initial assessment of this patient. A comprehensive ED assessment and evaluation of the patient, analysis of test results and completion of the medical decision making process will be conducted by additional ED providers. PHYSICAL EXAMINATION: GENERAL: Well-appearing, well-nourished and in no acute distress. HEAD: Atraumatic, normocephalic. EYES: Pupils equal round extraocular movements intact, conjunctiva are normal. ENT: Nares patent NECK: Normal range of motion LUNGS: No respiratory distress Musculoskeletal: Normal range of motion NEUROLOGICAL: Normal speech, normal gait. PSYCH: Normal mood, normal affect. SKIN: Warm, Dry, normal turgor, no rashes or lesions noted. TRAVEL OUTSIDE OF THE [place] IN LAST 30 DAYS: No - Related Data Allergies/Adverse Reactions: tree nut [Tree Nut] Allergy (Severe, Verified 05/22/17 13:37) banana [Banana] Allergy (Unknown, Verified 05/22/17 13:37) latex [Latex] Allergy (Verified 05/22/17 13:37) RASH? UNKNOWN peanut Allergy (Verified 05/22/17 13:37) Penicillins Allergy (Verified 05/22/17 13:37) Quinolones Allergy (Verified 05/22/17 13:37) Sulfa (Sulfonamide Antibiotics) Allergy (Verified 05/22/17 13:37) unknown peanuts Allergy (Severe, Uncoded 05/22/17 13:37) Past Medical History - Social History Frequency of alcohol use: None Drug Abuse: None - Past Medical History Cardiac Medical History: Reports: Hx Heart Attack - Previous "type II" [place]. Denies: Hx Congestive Heart Failure, Hx DVT, Hx Hypercholesterolemia, Hx Hypertension, Hx Pulmonary Embolism Pulmonary Medical History: Reports: Hx Asthma, Hx Pneumonia Denies: Hx COPD, Hx Sleep Apnea Neurological Medical History: Reports: Hx Seizures - Seizure 2 at 15 years of age, never on antiepileptic. Endocrine Medical History: Denies: Hx Diabetes Mellitus Type 1, Hx Diabetes Mellitus Type 2, Hx Hyperthyroidism, Hx Hypothyroidism Renal/ Medical History: Reports: Hx Kidney Stones, Hx Ovarian Cysts. Denies: Hx Peritoneal Dialysis GI Medical History: Denies: Hx Cirrhosis, Hx Gastroesophageal Reflux Disease, Hx Hepatitis Musculoskeltal Medical History: Reports Hx Arthritis, Reports Hx Musculoskeletal Trauma Psychiatric Medical History: Reports: Hx Anxiety, Hx Bipolar Disorder, Hx Depression Traumatic Medical History: Reports: Hx Fractures, Hx Pneumothorax Infectious Medical History: Denies: Hx C-Diff, Hx Hepatitis, Hx MRSA Past Surgical History: Reports: Hx Abdominal Surgery, Hx Cholecystectomy, Hx Gynecologic Surgery - exploratory for endometriosis, Hx Nose Surgery, Hx Oral Surgery - Immunizations Immunizations up to date: Yes Hx Diphtheria, Pertussis, Tetanus Vaccination: Yes History of Influenza Vaccine for 11/2016 - 04/2017 Season: No Physical Exam - Vital signs Vitals: Temp Pulse Resp BP Pulse Ox 98.2 F 94 18 121/72 97 05/22/17 13:44 05/22/17 13:44 05/22/17 13:44 05/22/17 13:44 05/22/17 13:44 Course - Vital Signs Vital signs: Temp Pulse Resp BP Pulse Ox 98.2 F 94 18 121/72 97 05/22/17 13:44 05/22/17 13:44 05/22/17 13:44 05/22/17 13:44 05/22/17 13:44
--- NOTE | 2017-05-22 15:20 | ER Document Report ---
HPI - HPI Pain Level: 2 Notes: Patient is a 26-year-old female who presents to the ED complaining of a constant dry cough with occasional pink tinge/mucoid production 1 week status post extubation. Patient states that she had an allergic reaction requiring intubation will over a week ago and was intubated for 3 days. Patient states that as soon as they extubated her she started coughing and had a jennifer tinge to her sputum. Patient states that since then she has had a constant dry cough that is frequent and on occasion will notice a pink tinge to her sputum with some tissue appearance material as well. Patient states that she has not had any recurrence of her hives or trouble breathing otherwise. Patient states that the constant cough does make it hard to breathe at times. She has tried some [id number] meds with minimal relief. Patient states that she is eating and drinking without difficulties. She is urinating normally and having normal bowel movements. She denies any other recent illness. Denies any headache, fever, neck pain, URI, sore throat, chest pain, palpitations, syncope , wheeze, abdominal pain, nausea/vomiting/diarrhea, urinary retention, dysuria, hematuria, or rash. - ROS Systems Reviewed and Negative: Yes All other systems reviewed and negative - REPRODUCTIVE Reproductive: DENIES: : - DERM Skin Color: Normal, [place] Past Medical History - General Information source: Patient - Social History Smoking Status: Never Smoker Frequency of alcohol use: None Drug Abuse: None Family History: Arthritis, CAD, CVA, DM, Hyperlipidemia, Hypertension, Malignancy, Thyroid Disfunction Patient has suicidal ideation: No Patient has homicidal ideation: No - Past Medical History Cardiac Medical History: Reports: Hx Heart Attack - Previous "type II" [place]. Denies: Hx Congestive Heart Failure, Hx DVT, Hx Hypercholesterolemia, Hx Hypertension, Hx Pulmonary Embolism Pulmonary Medical History: Reports: Hx Asthma, Hx Pneumonia Denies: Hx COPD, Hx Sleep Apnea Neurological Medical History: Reports: Hx Seizures - Seizure 2 at 15 years of age, never on antiepileptic. Endocrine Medical History: Denies: Hx Diabetes Mellitus Type 1, Hx Diabetes Mellitus Type 2, Hx Hyperthyroidism, Hx Hypothyroidism Renal/ Medical History: Reports: Hx Kidney Stones, Hx Ovarian Cysts. Denies: Hx Peritoneal Dialysis GI Medical History: Denies: Hx Cirrhosis, Hx Gastroesophageal Reflux Disease, Hx Hepatitis Musculoskeltal Medical History: Reports Hx Arthritis, Reports Hx Musculoskeletal Trauma Psychiatric Medical History: Reports: Hx Anxiety, Hx Bipolar Disorder, Hx Depression Traumatic Medical History: Reports: Hx Fractures, Hx Pneumothorax Infectious Medical History: Denies: Hx C-Diff, Hx Hepatitis, Hx MRSA Past Surgical History: Reports: Hx Abdominal Surgery, Hx Cholecystectomy, Hx Gynecologic Surgery - exploratory for endometriosis, Hx Nose Surgery, Hx Oral Surgery - Immunizations Immunizations up to date: Yes Hx Diphtheria, Pertussis, Tetanus Vaccination: Yes Vertical Provider Document - CONSTITUTIONAL Agree With Documented VS: Yes Notes: PHYSICAL EXAMINATION: GENERAL: Well-appearing, well-nourished and in no acute distress. A&Ox4. Answers questions appropriately. Moves comfortably w/o notable distress HEAD: Atraumatic, normocephalic. EYES: Pupils equal round and reactive to light, extraocular movements intact, sclera anicteric, conjunctiva are normal. ENT: EAC clear b/l. TM's intact b/l without erythema, fluid, or perforation. Nares patent and without discharge. oropharynx no erythema without exudates. No tonsilar hypertrophy without erythema or exudate. No palatine shift. Uvula midline. No tongue protrusion. No drooling, hoarseness, or airway compromise. Moist mucous membranes. No sinus tenderness. NECK: Normal range of motion, supple without lymphadenopathy. No rigidity/ meningismus. Chest: Non-tender. No flail chest. Equal rise/fall. No obvious subcutaneous emphysema. LUNGS: Breath sounds clear to auscultation bilaterally and equal. No wheezes rales or rhonchi. No retractions HEART: Regular rate and rhythm without murmurs, rubs, gallops. ABDOMEN: Soft, nontender, nondistended abdomen. No guarding, no rebound. No masses appreciated. Normal bowel sounds present. No CVA tenderness bilaterally. Ext: no edema b/l. NEUROLOGICAL: Normal speech, normal gait. Normal sensory, motor exams PSYCH: Normal mood, normal affect. SKIN: Warm, Dry, normal turgor, no rashes or lesions noted. - INFECTION CONTROL TRAVEL OUTSIDE OF THE [place] IN LAST 30 DAYS: No Course - Re-evaluation Re-evalutation: 05/22/17 15:19 Labs and imaging were ordered through [facility] as well as [facility]. tests pending. 05/22/17 16:54 Patient is an afebrile, well-hydrated, 26-year-old female who presents to the ED with a cough, unspecified. Vitals are acceptable. PE is otherwise unremarkable. CBC, CMP, and CTA of the chest were unremarkable for any acute pathology. I did review this case again with Dr. Simons. We will cover her for possible bacterial infection with doxycycline she is allergic to quinolones. I will also be sending her home with a cough syrup. Low suspicion for any ACS, PE, pneumothorax, pericarditis, dissection, respiratory compromise , severe dehydration, sepsis, meningitis, or other systemic emergent condition at this time. Patient is aware that her condition can change from initial presentation and she needs to monitor symptoms closely and seek medical attention for any acute changes. Recommend conservative measures for symptoms. Recheck with your PCM in 3-5 days. Return to the ED with any worsening/ concerning symptoms otherwise as reviewed in discharge. Patient is in agreement. - Vital Signs Vital signs: Temp Pulse Resp BP Pulse Ox 98.2 F 94 18 121/72 97 05/22/17 13:44 05/22/17 13:44 05/22/17 13:44 05/22/17 13:44 05/22/17 13:44 - Laboratory Result Diagrams: 05/22/17 15:00 05/22/17 15:00 Discharge - Discharge Clinical Impression: Cough Condition: Stable Disposition: HOME, SELF-CARE Additional Instructions: Maintain adequate fluid intake Take meds as directed tylenol/ibuprofen as needed over the counter cold medication as needed for symptoms Humidified air may help Wash your hands regularly Wear a mask when coughing F/u: with your PCM in 3-5 days for a recheck Consider consult with pulmonology. Return to the ED with any fever, worsening pain, chest pain, palpitations, syncope, worsening GLEASON, neck pain/stiffness, shortness of breath, wheezing, drooling, trouble swallowing/breathing, abdominal pain, n/v/d, rash, or worsening/concerning symptoms otherwise. Prescriptions: Benzonatate [Tessalon Perle 100 mg Capsule] 100 mg PO Q8HP PRN #15 cap PRN Reason: Codeine Phosphate/Guaifenesin [Cheratussin Ac Syrup] 10 ml PO QID #200 ml Doxycycline Hyclate 100 mg PO BID #20 capsule Referrals: ANDRE,GALILEO G, PA-C [Primary Care Provider] - Follow up in 3-5 days DAIN MCLAIN MD [ACTIVE STAFF] - Follow up as needed
[2017-05-22 15:35] LABS: ABSOLUTE EOSINOPHILS # (AUTO) 0.1 10^3/uL (0.0-0.6); ABSOLUTE LYMPHOCYTES (AUTO) 1.6 10^3/uL (0.5-4.7); ABSOLUTE MONOCYTES (AUTO) 0.8 10^3/uL (0.1-1.4); ABSOLUTE NEUT (AUTO) 4.5 10^3/uL (1.7-8.2); BASOPHILS % (AUTO) 0.7 % (0-2); EOSINOPHILS % (AUTO) 1.9 % (0-6); HEMATOCRIT 36.7 % (36.0-47.0); HEMOGLOBIN 12.3 g/dL (12.0-15.5); LYMPHOCYTES % (AUTO) 22.8 % (13-45); MEAN CORPUSCULAR HEMOGLOBIN 26.8 pg (27.0-33.4); MEAN CORPUSCULAR HGB CONC 33.4 g/dL (32.0-36.0); MEAN CORPUSCULAR VOLUME 80 fl (80-97); MONOCYTES % (AUTO) 11.2 % (3-13); PLATELET COUNT 398 10^3/uL (150-450); RED BLOOD COUNT 4.57 10^6/uL (3.72-5.28); RED CELL DISTRIBUTION WIDTH 14.7 % (11.5-14.0); SEGMENTED NEUTROPHILS % (AUTO) 63.4 % (42-78); TOTAL CELLS COUNTED % (AUTO) 100 %; WHITE BLOOD COUNT 7.1 10^3/uL (4.0-10.5)
[2017-05-22 15:40] LABS: ALANINE AMINOTRANSFERASE 43 U/L (9-52); ALBUMIN 4.5 g/dL (3.5-5.0); ALKALINE PHOSPHATASE 63 U/L (38-126); ANION GAP 10 (5-19); ASPARTATE AMINO TRANSFERASE 27 U/L (14-36); BILIRUBIN,DIRECT 0.5 mg/dL (0.0-0.4); BILIRUBIN,TOTAL 0.6 mg/dL (0.2-1.3); BLOOD UREA NITROGEN 9 mg/dL (7-20); CALCIUM 9.9 mg/dL (8.4-10.2); CARBON DIOXIDE 26 mmol/L (22-30); CHLORIDE 103 mmol/L (98-107); GLUCOSE 91 mg/dL (75-110); POTASSIUM 4.3 mmol/L (3.6-5.0); SODIUM 138.8 mmol/L (137-145); TOTAL PROTEIN 7.5 g/dL (6.3-8.2)
--- NOTE | 2017-05-22 16:19 | RADIOLOGY REPORT (SQ) ---
EXAM DESCRIPTION: CTA CHEST COMPLETED DATE/TIME: 05/22/2017 3:58 pm REASON FOR STUDY: post intubation, cough productive COMPARISON: Chest x-ray 05/16/2017 TECHNIQUE: CT scan of the chest performed using helical scanning technique with dynamic intravenous contrast injection. Images reviewed with lung, soft tissue and bone windows. Reconstructed coronal and sagittal MPR images reviewed. Additional 3 dimensional post-processing performed to develop Maximal Intensity Projection images (MO P). All images stored on PACS. All CT scanners at this facility use dose modulation, iterative reconstruction, and/or weight based d osing when appropriate to reduce radiation dose to as low as reasonably achievable (ALARA). [facility]: Dose Right [facility]: CareDose [facility]: Dose Right [facility]: Teradose 4D [facility]: Zimory CONTRAST TYPE AND DOSE: contrast/concentration: Isovue 370.00 mg/ml; Total Contrast Delivered: 62.0 ml; Total Saline Delivered: 70.1 ml Contrast bolus optimized for the pulmonary arteries. Not diagnostic for the aorta. RENAL FUNCTION: BUN 15 creatinine 0.52 RADIATION DOSE: CT Rad equipment meets quality standard of care and radiation dose reduction techniq ues were employed. CTDIvol: 6.6 - 15.4 mGy. DLP: 550 mGy-cm. . LIMITATIONS: None. FINDINGS: LUNGS AND PLEURA: No masses, infiltrates, pneumothorax. No pleural effusions, calcificati ons. AORTA AND GREAT VESSELS: No aneurysm. No dissection. HEART: No pericardial effusion. No significant coronary artery calcifications. PULMONARY ARTERIES: No emboli visualized in the main pulmonary arteries or the segmental branches. HILAR AND MEDIASTINAL STRUCTURES: No identified masses or abnormal nodes. HARDWARE: None in the chest. UPPER ABDOMEN: No significant findings. Limited exam. THYROID AND OTHER SOFT TISSUES: No masses. No adenopathy. BONES: No acute or significant finding. 3D MIPS: Confirm above findings. OTHER: No other significant finding. IMPRESSION: NORMAL CTA OF THE CHEST. NO PULMONARY EMBOLI. COMMENT: Quality ID # [id number]: Final reports with documentation of one or more dose reduction techniques (e.g., Automated exposure control, adjustment of the mA and/or kV according to patient size, use of iterative reconstruction technique) TECHNICAL DOCUMENTATION: JOB ID: [id number] [employer]- All Rights Reserved Reading location - IP/workstation name: [email or web address]
[2017-05-22 17:13] VITALS: BP 103/59
== END 2017-05-22 17:05 | disposition home or self-care (01) ==
LOC: ER 13:34
DX: R05 Cough (principal); Z90.49 Acquired absence of other specified parts of digestive tract
CPT/HCPCS: 36415; 71275; 80053; 85025; 99284

== ENCOUNTER 2017-08-14 17:58 | Emergency (ER) | payer BC ==
[2017-08-14 18:11] VITALS: BP 119/73
[2017-08-14] MEDS ORDERED: ACETAMINOPHEN 325 MG TABLET PO ONE (18:29)
--- NOTE | 2017-08-14 18:34 | ER Document Report ---
ED Extremity Problem, Lower - General Chief Complaint: Knee Pain Stated Complaint: KNEE PAIN Time Seen by Provider: 08/14/17 18:24 Mode of Arrival: Ambulatory - With some difficulty Information source: Patient Notes: 26-year-old female presented ED for complaint of left knee pain after she slipped and fell while standing on the toilet about 2 hours ago. She states she was trying to clean and she slipped off the toilet. She landed on her knee. She denies hitting her head. She is alert and oriented, pupils equal and react to light, speaking in full sentences, respirations are equal and unlabored, and emulates with difficulty and pain. TRAVEL OUTSIDE OF THE [place] IN LAST 30 DAYS: No - HPI Patient complains to provider of: Injury, Pain, Swelling Location: Knee - Left Occurred: This afternoon Where: Home, Indoors Onset/Duration: Sudden Quality of pain: Pressure, Sharp Severity: Moderate Pain Level: 3 Context: Fell Recent injury: Yes Associated symptoms: Painful ambulation Exacerbated by: Hanging down, Movement, Walking Relieved by: Nothing - Related Data Allergies/Adverse Reactions: tree nut [Tree Nut] Allergy (Severe, Verified 08/14/17 18:00) banana [Banana] Allergy (Unknown, Verified 08/14/17 18:00) latex [Latex] Allergy (Verified 08/14/17 18:00) RASH? UNKNOWN peanut Allergy (Verified 08/14/17 18:00) Penicillins Allergy (Verified 08/14/17 18:00) Quinolones Allergy (Verified 08/14/17 18:00) Sulfa (Sulfonamide Antibiotics) Allergy (Verified 08/14/17 18:00) unknown peanuts Allergy (Severe, Uncoded 08/14/17 18:00) Past Medical History - General Information source: Patient - Social History Smoking Status: Never Smoker Cigarette use (# per day): No Chew tobacco use (# tins/day): No Smoking Education Provided: No Frequency of alcohol use: None Drug Abuse: None Lives with: Family Family History: Arthritis, CAD, CVA, DM, Hyperlipidemia, Hypertension, Malignancy, Thyroid Disfunction - Past Medical History Cardiac Medical History: Reports: Hx Heart Attack - Previous "type II" [place]. Pulmonary Medical History: Reports: Hx Asthma, Hx Pneumonia, Other - Mast cell activation, multiple intubations Neurological Medical History: Reports: Hx Seizures - Seizure 2 at 15 years of age, never on antiepileptic. Endocrine Medical History: Reports: None Renal/ Medical History: Reports: Hx Kidney Stones, Hx Ovarian Cysts. Denies: Hx Peritoneal Dialysis Malignancy Medical History: Reports: None GI Medical History: Reports: None Musculoskeltal Medical History: Reports Hx Arthritis, Reports Hx Musculoskeletal Trauma Skin Medical History: Reports None Psychiatric Medical History: Reports: Hx Anxiety, Hx Bipolar Disorder, Hx Depression, Other - Mood disorder Traumatic Medical History: Reports: Hx Fractures, Hx Pneumothorax Infectious Medical History: Reports: None Past Surgical History: Reports: Hx Abdominal Surgery, Hx Cholecystectomy, Hx Gynecologic Surgery - exploratory for endometriosis, Hx Nose Surgery, Hx Oral Surgery - Immunizations Immunizations up to date: Yes Hx Diphtheria, Pertussis, Tetanus Vaccination: Yes Review of Systems - Review of Systems Constitutional: No symptoms reported EENT: No symptoms reported Cardiovascular: No symptoms reported Respiratory: No symptoms reported Gastrointestinal: No symptoms reported Genitourinary: No symptoms reported Female Genitourinary: No symptoms reported Musculoskeletal: Joint pain, Joint swelling Skin: No symptoms reported Hematologic/Lymphatic: No symptoms reported Neurological/Psychological: No symptoms reported -: Yes All other systems reviewed and negative Physical Exam - Vital signs Vitals: Temp Pulse Resp BP Pulse Ox 98.9 F 88 16 119/73 99 08/14/17 18:09 08/14/17 18:09 08/14/17 18:09 08/14/17 18:09 08/14/17 18:09 Interpretation: Normal - General General appearance: Appears well, Alert - HEENT Head: Normocephalic, Atraumatic Eyes: Normal Pupils: PERRL - Respiratory Respiratory status: No respiratory distress Chest status: Nontender Breath sounds: Normal Chest palpation: Normal - Cardiovascular Rhythm: Regular Heart sounds: Normal auscultation Murmur: No - Abdominal Inspection: Normal Distension: No distension Bowel sounds: Normal Tenderness: Nontender Organomegaly: No organomegaly - Back Back: Normal, Nontender - Extremities General upper extremity: Normal inspection, Nontender, Normal color, Normal ROM , Normal temperature General lower extremity: Normal color, Normal temperature. No: Raghav's sign Knee: Tender, Ecchymosis, Pain with ROM, Patellar tendon intact, Tender joint line. No: Abrasion, Deformity, Dislocation, Drawer's test instability, Instability, Joint effusion, Laceration, Laxity with valgus stress, Laxity with varus stress, Popliteal fossa tender, Unable to bear weight - Pain with ambulation - Neurological Neuro grossly intact: Yes Cognition: Normal Orientation: AAOx4 [place] Coma Scale Eye Opening: Spontaneous Dnan Coma Scale Verbal: Oriented Dann Coma Scale Motor: Obeys Commands Dann Coma Scale Total: 15 Speech: Normal Motor strength normal: LUE, RUE, LLE, RLE Sensory: Normal - Psychological Associated symptoms: Normal affect, Normal mood - Skin Skin Temperature: Warm Skin Moisture: Dry Skin Color: Normal Course - Re-evaluation Re-evalutation: 08/14/17 21:19 Patient was treated with a knee immobilizer and crutches. She was instructed to use Tylenol Motrin for the pain. Patient was given instructions for knee exercises and elevation and ice. Patient instructed to follow-up with orthopedics if her pain continued. - Vital Signs Vital signs: Temp Pulse Resp BP Pulse Ox 98.9 F 88 16 119/73 99 08/14/17 18:09 08/14/17 18:09 08/14/17 18:09 08/14/17 18:09 08/14/17 18:09 - Diagnostic Test Radiology reviewed: Image reviewed, Reports reviewed Procedures - Immobilization Left Knee Time completed: 19:40 Pre-Proc Neuro Vasc Exam: Normal Immobilizer type: Crutches, Knee immobilizer Performed by: PCT Post-Proc Neuro Vasc Exam: Normal Alignment checked and good: Yes Discharge - Discharge Clinical Impression: Left knee injury Qualifiers: Encounter type: initial encounter Qualified Code(s): S89.92XA - Unspecified injury of left lower leg, initial encounter Condition: Stable Disposition: HOME, SELF-CARE Instructions: Knee Exercise Program ([facility]) Additional Instructions: SUSPECTED INTERNAL KNEE INJURY: The examiner of your injured knee suspects an internal injury to the cartilage or internal ligaments. This must be further investigated by an security incident response specialist. The knee should be protected, ice packed, and elevated while awaiting your follow-up exam by the orthopedist. If there is severe swelling, severe pain, or any new symptoms while awaiting your exam, you should call the orthopedist. (If he/she is unavailable, call us or return for re-examination.) KNEE IMMOBILIZING SPLINT: The knee immobilizing splint will protect the injury while healing begins. This type of splint does not allow the knee to bend at all. No running or sports will be possible. If the splint allows painfree walking, it's giving adequate protection. If there is still significant pain, crutches may be needed as well. Don't do anything that hurts. Adjusted the splint, if necessary. The stiffeners on the sides are attached with Velcro, so they can be easily moved to adjust for thigh and calf size. If you need help with these adjustments, come back. You will lose muscle strength in the thigh while using this splint. The doctor will advise you if it's safe to do isometric knee exercises while you use it. USE OF CRUTCHES: The doctor has recommended that you not bear weight at this time. You will need to use crutches. Adjust the crutches so the tops come to about two inches under the armpit while you are standing upright. Use your hands -- not your armpits -- to support your weight. To get into a chair, support yourself with one crutch on the injured side. Hold the chair with the other hand, then lower yourself while putting all your weight on the good leg. Going up stairs is `good leg up, step up, then bring up crutches and bad leg.' Down stairs is `bad leg and crutches down, then bring good leg down.' If you develop numbness or swelling in an arm or hand, you are using the crutches incorrectly. Return if you are having any problems with the crutches. ICE & ELEVATION: Apply ice packs frequently against the painful area. Many different schedules are recommended, such as "20 minutes on, 20 minutes off" or "one hour ice, two hours rest." If you need to work, you may need to go longer between ice treatments. You should plan to have the area ice packed AT LEAST one- fourth of the time. The ice should be applied over the wrap, tape, or splint, or over a layer of cloth -- not directly against the skin. Some ice bags have a built-in cloth and can be put directly on the skin. Your injured part should be elevated as much as possible over the next 48 hours. Try to keep the injury above the level of the heart. Avoid use of the injured area. Elevation and rest will decrease the swelling. USE OF [id number] IBUPROFEN: Ibuprofen (Advil, Nuprin, Medipren, Motrin IB) is a medication for fever and pain control. In addition, it has anti- inflammatory effects which may be beneficial, especially in the treatment of injuries. It's best to take ibuprofen with food. Persons with ulcer disease or allergy to aspirin should notify their physician of this before taking ibuprofen. Ibuprofen can be given every four to six hours, for a total of four doses daily. Age Pain or fever dose Antiinflammatory dose 6-8 yr 200 mg (1 tab) 200 mg (1 tab) 9-11 yr 200 mg (1 tab) 200-400 mg (1-2 tab) 11-14 yr 200-400 mg (1-2 tab) 400 mg (2 tab) 15-adult 400 mg (2 tab) 600 mg (3 tab) Oral Narcotic Medication You have been given a prescription for pain control. This medication is a narcotic. It's best taken with food, as nausea can result if taken on an empty stomach. Don't operate machinery or drive within six hours of taking this medication. Do not combine this medicine with alcohol, or with any medication which can cause sedation (such as cold tablets or sleeping pills) unless you get permission from the physician. Narcotics tend to cause constipation. If possible, drink plenty of fluids and eat a diet high in fiber and fruits. FOLLOW-UP CARE: If you have been referred to a physician for follow-up care, call the physician s office for an appointment as you were instructed or within the next two days. If you experience worsening or a significant change in your symptoms, notify the physician immediately or return to the Emergency Department at any time for re-evaluation. Prescriptions: Ibuprofen 800 mg PO Q8HP PRN #20 tablet PRN Reason: Referrals: GALILEO POWELL PA-C [Primary Care Provider] - Follow up as needed VIRGILIO DE LA TORRE MD [ACTIVE STAFF] - Follow up as needed
--- NOTE | 2017-08-14 19:12 | RADIOLOGY REPORT (SQ) ---
EXAM DESCRIPTION: KNEE LEFT 4 VIEW COMPLETED DATE/TIME: 08/14/2017 6:51 pm REASON FOR STUDY: fell pain in knee COMPARISON: None. NUMBER OF VIEWS: Four views. TECHNIQUE: AP, lateral, and both oblique radiographic images acquired of the left knee. LIMITATIONS: None. FINDINGS: MINERALIZATION: Normal. BONES: No acute fracture or dislocation. No worrisome bone lesions. JOINT: No effusion. SOFT TISSUES: No soft tissue swelling. No radio-opaque foreign body. OTHER: No other significant finding. IMPRESSION: NO RADIOGRAPHIC EVIDENCE OF ACUTE INJURY. TECHNICAL DOCUMENTATION: JOB ID: [id number] [place]-72 2010 [employer]- All Rights Reserved Reading location - IP/workstation name: [email or web address]
[2017-08-14] MEDS ORDERED: HYDROCODONE/ACETAMINOPHEN 5-325 MG (6 TAB/ER DISP) PO PRN (19:27)
== END 2017-08-14 19:44 | disposition home or self-care (01) ==
LOC: ER 17:58
DX: S89.92XA Unspecified injury of left lower leg, initial encounter (principal); M25.562 Pain in left knee; M79.89 Other specified soft tissue disorders; W18.11XA Fall from or off toilet without subsequent striking against object, initial encounter; I25.2 Old myocardial infarction; J45.909 Unspecified asthma, uncomplicated
CPT/HCPCS: 99283; 73564; L1830

== ENCOUNTER 2017-11-19 08:20 | Day surgery (SDC) | payer BC ==
[2017-11-10 10:36] LABS: HEMATOCRIT 37.9 % (36.0-47.0); HEMOGLOBIN 12.8 g/dL (12.0-15.5); MEAN CORPUSCULAR HEMOGLOBIN 27.3 pg (27.0-33.4); MEAN CORPUSCULAR HGB CONC 33.8 g/dL (32.0-36.0); MEAN CORPUSCULAR VOLUME 81 fl (80-97); PLATELET COUNT 366 10^3/uL (150-450); RED CELL DISTRIBUTION WIDTH 14.4 % (11.5-14.0); WHITE BLOOD COUNT 6.2 10^3/uL (4.0-10.5)
[2017-11-10 11:03] LABS: ANION GAP 9 (5-19); BLOOD UREA NITROGEN 11 mg/dL (7-20); CALCIUM 9.8 mg/dL (8.4-10.2); CARBON DIOXIDE 27 mmol/L (22-30); CHLORIDE 103 mmol/L (98-107); GLUCOSE 82 mg/dL (75-110); POTASSIUM 4.2 mmol/L (3.6-5.0); SODIUM 139.1 mmol/L (137-145)
--- NOTE | 2017-11-10 23:13 | EKG REPORT ---
SEVERITY:- NORMAL ECG - SINUS RHYTHM : Confirmed by: Dutch Chacon 10-Nov-2017 23:12:49
[~2017-11-19 08:20] MED LIST: BUPIVACAINE HCL 0.5 % INJ/PF 30 ML SDV ONE; CEFAZOLIN 2 GM/D5W RTU 2 GM/50 ML RTUPB IV PRN; CLINDAMYCIN 600 MG/D5W RTU 600 MG/50 ML RTUPB IV PRN; LACTATED RINGERS 1000 ML IV PRN; LIDOCAINE 0.5% INJ-PF (5 MG/ML) 50 ML SDV SUBCUT PRN
[2017-11-19] MEDS ORDERED: CLINDAMYCIN 600 MG/D5W RTU 600 MG/50 ML RTUPB IV ONE (09:08)
[2017-11-19 09:09] LABS: APPEARANCE,URINE SLIGHTLY-CLOUDY; BILIRUBIN,URINE NEGATIVE (NEGATIVE); COLOR,URINE YELLOW; GLUCOSE, URINE NEGATIVE (NEGATIVE); KETONES,URINE NEGATIVE (NEGATIVE); LEUKOCYTE ESTERASE,URINE NEGATIVE (NEGATIVE); NITRITE,URINE NEGATIVE (NEGATIVE); PROTEIN,URINE NEGATIVE (NEGATIVE); URINE SPECIFIC GRAVITY 1.019
[2017-11-19] MEDS ORDERED: SUCCINYLCHOLINE CHLORIDE INJ 200 MG/10 ML VIAL ONE (09:32)
[2017-11-19] MEDS ORDERED: ONDANSETRON HCL INJ/PF 4 MG/2 ML SDV ONE (09:32)
[2017-11-19] MEDS ORDERED: DEXAMETHASONE SOD PHOSPHATE INJ 4 MG/1 ML VIAL ONE (09:32)
[2017-11-19] MEDS ORDERED: KETOROLAC TROMETHAMINE 60 MG/2 ML SDV ONE (09:32)
--- NOTE | 2017-11-19 09:49 | RADIOLOGY REPORT (SQ) ---
EXAM DESCRIPTION: CHEST SINGLE VIEW COMPLETED DATE/TIME: 11/19/2017 9:10 am REASON FOR STUDY: pre op COMPARISON: CT chest 05/22/2017, 05/15/2017 EXAM PARAMETERS: NUMBER OF VIEWS: One view. TECHNIQUE: Single frontal radiographic view of the chest acquired. RADIATION DOSE: NA LIMITATIONS: None. FINDINGS: LUNGS AND PLEURA: No opacities, masses or pneumothorax. No pleural effusion. MEDIASTINUM AND HILAR STRUCTURES: No masses. Contour normal. HEART AND VASCULAR STRUCTURES: Heart normal in size. Normal vasculature. BONES: No acute findings. HARDWARE: None in the chest. OTHER: No other significant finding. IMPRESSION: NO ACUTE RADIOGRAPHIC FINDING IN THE CHEST. TECHNICAL DOCUMENTATION: JOB ID: [id number] [employer]- All Rights Reserved Reading location - IP/workstation name: [email or web address]
[2017-11-19] MEDS ORDERED: HYDROMORPHONE HCL INJ/PF 2 MG/ML AMPULE ONE (11:36)
[2017-11-19] MEDS ORDERED: PROPOFOL INJ 200 MG/20 ML VIAL IV ONE (11:37)
[2017-11-19] MEDS ORDERED: MIDAZOLAM 2 MG/2 ML INJ ONE ×2 (11:37→14:15)
[2017-11-19] MEDS ORDERED: ACETAMINOPHEN 1,000 MG/100 ML RTUPB IV ONE (12:08)
[2017-11-19] MEDS ORDERED: FENTANYL CITRATE INJ/PF 100 MCG/2 ML AMPUL IV PRN ×3 (12:40)
[2017-11-19] MEDS ORDERED: DIPHENHYDRAMINE HCL 50 MG/ML VIAL IV PRN (12:40)
[2017-11-19] MEDS ORDERED: MEPERIDINE HCL/PF INJ 25 MG/1 ML DISP.SYRIN IV PRN (12:40)
[2017-11-19] MEDS ORDERED: PROMETHAZINE HCL INJ 25 MG/1 ML VIAL IV PRN ×2 (12:40)
[2017-11-19] MEDS ORDERED: ONDANSETRON HCL INJ/PF 4 MG/2 ML SDV IV PRN (12:40)
[2017-11-19] MEDS ORDERED: OXYCODONE-ACETAMINOPHEN 5-325 MG TABLET PO PRN ×3 (12:40→14:11)
[2017-11-19] MEDS: FENTANYL CITRATE INJ/PF 100 MCG/2 ML AMPUL ONE ×3 (13:11→13:25)
[2017-11-19] MEDS ORDERED: MORPHINE SULFATE 10 MG/ML INJ ONE (13:47)
--- NOTE | 2017-11-19 13:49 | Discharge Summary ---
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 Patient instructed to keep dressing dry clean and intact for 4 days and then allowed to remove. At that point patient can shower and apply Band-Aids as needed. Patient can weight-bear as tolerated and do range of motion exercises as tolerated. Crutches for support and safety. Can wean crutches once stable on his feet. Patient instructed to call the office if patient develops fevers chills redness and drainage from the surgical sites. Prescriptions: Ibuprofen [Ibu] 800 mg PO Q8 #60 tablet Oxycodone HCl/Acetaminophen [Percocet 5-325 mg Tablet] 1 - 2 tab PO ASDIR PRN # 40 tablet PRN Reason: Referrals: GALILEO POWELL PA-C [Primary Care Provider] - Discharge Diet: As Tolerated Respiratory Treatments at Home: Deep Breathing/Coughing Discharge Activity: No Driving - While taking narcotics, No Lifting/Push/Pulling , Slowly Increase Activity, Walk Frequently Adaptive Devices on Discharge: Axillary Crutches Report the Following to Your Physician Immediately: Shortness of Breath, Vomiting, Increase in Pain, Fever over 101 Degrees, Unusual Bleeding, Redness, Swelling, Warmth, Increased Soreness, Drainage-Yellow, Drainage-Rubalcava, Drainage- Green, Drainage-Foul Smelling
--- NOTE | 2017-11-19 13:56 | Operative Report ---
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 Thigh tourniquet was applied to left lower extremity and the left lower extremity was prepped and draped in a normal sterile surgical fashion. Timeout was done identifying the left knee as the correct site. Quarter percent Marcaine was injected in the anticipated portal sites and Esmarch was used to examining the extremity and tourniquet was inflated at 300 mmHg. With the knee flexed at 90 a 11 blade was used to establish the anterolateral portal and the scope was introduced and the capsule was distended with sterile saline solution. I used a spinal needle to anticipate placement of my anterior medial portal. Once I was satisfied I used an 11 blade and establish that portal. Probe was introduced and a diagnostic scope was done. Patient had plica noticeable and he was adjacent to a rim portion of the medial femoral condyle showing some grade II chondromalacia. The remaining medial compartment and notch and lateral compartment were pristine with intact ACL, PCL, menisci and articular cartilage except for above-mentioned. Patellofemoral compartment also showed intact trochlea and patellar cartilage. At this point I then I used a 4.0 mm shaver to do resection of my plica shelf as well as limited chondroplasty of the medial femoral condyle which was adjacent to the plica. Use radiofrequency ablator to debride some of the edges of the shavings and then proceeded to take pictures. Fluid from the knee was removed and then I proceeded to close the 2 portal sites with 3-0 nylon. Xeroform 4 x 4 dressing followed by soft roll was applied to the extremity and the tourniquet was let down at 18 minutes. It was overwrapped with an Yonathan bandage and the drapes and tourniquet were removed. Patient was extubated and then sent to PACU in a stable condition.
[2017-11-19] MEDS ORDERED: FENTANYL CITRATE INJ/PF 100 MCG/2 ML AMPUL ONE (14:15)
[2017-11-19] MEDS ORDERED: OXYCODONE-ACETAMINOPHEN 5-325 MG TABLET ONE (14:55)
[2017-11-19 17:08] VITALS: BP 111/75
== END 2017-11-19 17:05 | disposition home or self-care (01) ==
LOC: OROUT 08:20
PROVIDERS: ATTEND Orthopaedic Surgery
DX: M67.52 Plica syndrome, left knee (principal); M94.262 Chondromalacia, left knee; M22.2X2 Patellofemoral disorders, left knee; I34.1 Nonrheumatic mitral (valve) prolapse; D47.02 Systemic mastocytosis; I25.2 Old myocardial infarction; Z86.14 Personal history of Methicillin resistant Staphylococcus aureus infection; Z88.0 Allergy status to penicillin; Z91.040 Latex allergy status; Z88.2 Allergy status to sulfonamides; Z79.899 Other long term (current) drug therapy; Z79.1 Long term (current) use of non-steroidal anti-inflammatories (NSAID)
CPT/HCPCS: 93005; 36415; 85027; 81025; 80048; 81001; 71045; 93010; 29875; J2250; J3490; J1100; J1885; J3010; J2270; J1170; J0330; J2405; J2704; J0131; 1400

== ENCOUNTER 2017-11-26 19:42 | Emergency (ER) | payer BC ==
[2017-11-26 19:48] VITALS: BP 119/84
--- NOTE | 2017-11-26 20:33 | ER Document Report ---
HPI - HPI Patient complains to provider of: cough, right ear pain Onset: Other - cough for 3.5 weeks, ear pain for 2 day Onset/Duration: Persistent Pain Level: 5 Context: 27 yo non smoking female dx with viral cough 2 weeks ago, it persists, no meds. Now right ear hurts especially with cough, her parents are worried about her plantar left foot that was puncture with nail. Tetanus is current. Associated Symptoms: Other - see above Exacerbated by: Coughing Relieved by: Denies Similar symptoms previously: Yes Recently seen / treated by doctor: No - ROS ROS below otherwise negative: Yes Systems Reviewed and Negative: Yes All other systems reviewed and negative - NEURO Neurology: REPORTS: Weakness - REPRODUCTIVE Reproductive: DENIES: : - MUSCULOSKELETAL Musculoskeletal: REPORTS: Extremity pain - left knee Past Medical History - General Information source: Patient - Social History Smoking Status: Never Smoker Lives with: Family Family History: Arthritis, CAD, CVA, DM, Hyperlipidemia, Hypertension, Malignancy, Thyroid Disfunction Patient has suicidal ideation: No Patient has homicidal ideation: No Pulmonary Medical History: Reports: Hx Asthma - exercise induced, Hx Pneumonia Neurological Medical History: Reports: Hx Seizures - Seizure 2 at 15 years of age, never on antiepileptic. Renal/ Medical History: Reports: Hx Kidney Stones, Hx Ovarian Cysts Musculoskeletal Medical History: Reports Hx Musculoskeletal Trauma Psychiatric Medical History: Reports: Hx Anxiety, Hx Bipolar Disorder, Hx Depression Traumatic Medical History: Reports: Hx Fractures, Hx Pneumothorax Past Surgical History: Reports: Hx Abdominal Surgery, Hx Cholecystectomy, Hx Gynecologic Surgery - exploratory for endometriosis, Hx Nose Surgery, Hx Oral Surgery - Immunizations Immunizations up to date: Yes Hx Diphtheria, Pertussis, Tetanus Vaccination: Yes Vertical Provider Document - CONSTITUTIONAL Agree With Documented VS: Yes Exam Limitations: No Limitations General Appearance: No Apparent Distress - INFECTION CONTROL TRAVEL OUTSIDE OF THE [place] IN LAST 30 DAYS: No - HEENT HEENT: Normocephalic, Pharyngeal Erythema Notes: can only see part of right TM no fluid - NECK Neck: Supple. negative: Lymphadenopathy-Left, Lymphadenopathy-Right - RESPIRATORY Respiratory: Rales - left - CARDIOVASCULAR Cardiovascular: Regular Rate, Regular Rhythm - NEURO Level of Consciousness: Awake - DERM Integumentary: No Rash Course - Re-evaluation Re-evalutation: 11/26/17 20:[address] levine over the phone who wants her to start on Neurontin 100 mg 3 times a day, he saw her 2 days ago he does not recommend an x-ray but the patient had already left for the x-ray. He does not recommend any more narcotics. He will see her in the office between 8 and 12 tomorrow morning she can call at 8:00. He wants her to modify her activities so I will have her stop the aggressive physical therapy that she has been doing such as [facility]. - Vital Signs Vital signs: Temp Pulse Resp BP Pulse Ox 97.3 F 101 H 17 119/84 99 11/26/17 19:47 11/26/17 19:47 11/26/17 19:47 11/26/17 19:47 11/26/17 19:47 Discharge - Discharge Clinical Impression: Postoperative pain of left knee, Ecchymosis Condition: Good Disposition: HOME, SELF-CARE Instructions: Arthralgia ([facility]), Ice & Elevation ([facility]), Toradol Injection ([facility]) Additional Instructions: see dr. callahan tomorrow, call at 8 am for appt tomorrow he wants you to stop the aggressive activities, he can discuss this with physical therapy elevate the knee, use ice stap neurontin 100mg three times per day continue the motrin Referrals: VIRGILIO DE LA TORRE MD [ACTIVE STAFF] - Follow up tomorrow
[2017-11-26] MEDS ORDERED: MORPHINE SULFATE 10 MG/ML INJ IM ONE (20:34)
[2017-11-26] MEDS ORDERED: GABAPENTIN 100 MG CAPSULE PO ONE (20:39)
[2017-11-26] MEDS ORDERED: KETOROLAC TROMETHAMINE 60 MG/2 ML SDV IM ONE (20:57)
--- NOTE | 2017-11-26 21:08 | RADIOLOGY REPORT (SQ) ---
EXAM DESCRIPTION: KNEE LEFT 4 VIEW COMPLETED DATE/TIME: 11/26/2017 8:47 pm REASON FOR STUDY: INCREASED PAIN AFTER SURGERY COMPARISON: None. NUMBER OF VIEWS: Four views. TECHNIQUE: AP, lateral, and both oblique radiographic images acquired of the left knee. LIMITATIONS: None. FINDINGS: MINERALIZATION: Normal. BONES: No acute fracture or dislocation. No worrisome bone lesions. JOINT: No effusion. SOFT TISSUES: No soft tissue swelling. No radio-opaque foreign body. OTHER: No other significant finding. IMPRESSION: NEGATIVE STUDY OF THE LEFT KNEE. NO RADIOGRAPHIC EVIDENCE OF ACUTE INJURY. TECHNICAL DOCUMENTATION: JOB ID: [id number] [employer]- All Rights Reserved Reading location - IP/workstation name: [email or web address]
== END 2017-11-26 21:14 | disposition home or self-care (01) ==
LOC: ER 19:42
DX: G89.18 Other acute postprocedural pain (principal); M25.562 Pain in left knee; R58 Hemorrhage, not elsewhere classified; R05 Cough; H92.01 Otalgia, right ear; S91.332A Puncture wound without foreign body, left foot, initial encounter; W45.0XXA Nail entering through skin, initial encounter; J45.909 Unspecified asthma, uncomplicated
CPT/HCPCS: 99283; 73564; J1885

== ENCOUNTER 2018-02-27 19:04 | Emergency (ER) | payer BC ==
[~2018-02-27 19:04] MED LIST changes: -BUPIVACAINE HCL 0.5 % INJ/PF 30 ML SDV ONE; -CEFAZOLIN 2 GM/D5W RTU 2 GM/50 ML RTUPB IV PRN; -CLINDAMYCIN 600 MG/D5W RTU 600 MG/50 ML RTUPB IV PRN; -LACTATED RINGERS 1000 ML IV PRN; -LIDOCAINE 0.5% INJ-PF (5 MG/ML) 50 ML SDV SUBCUT PRN; +RACEPINEPHRINE HCL 2.25% NEB 0.5 ML AMPUL NEB ONE
[2018-02-27] MEDS ORDERED: FENTANYL CITRATE INJ/PF 100 MCG/2 ML AMPUL ONE ×2 (19:12→20:12)
[2018-02-27] MEDS ORDERED: PROPOFOL 1,000 MG/100 ML INFUS..BTL IV ONE ×2 (19:13→22:03)
[2018-02-27] MEDS: PROPOFOL 1,000 MG/100 ML INFUS..BTL IV PRN ×2 (19:17→22:21)
[2018-02-27] MEDS ORDERED: MIDAZOLAM HCL 50 MG/100 ML RTUINJ ONE (19:18)
[2018-02-27] MEDS ORDERED: NORMAL SALINE 1000 ML 1,000 ML IV ONE (19:25)
[2018-02-27 19:41] LABS: INTERNATIONAL RATION (INR) 0.97; PROTHROMBIN TIME 13.4 SEC (11.4-15.4)
[2018-02-27 19:42] LABS: ABSOLUTE EOSINOPHILS # (AUTO) 0.1 10^3/uL (0.0-0.6); ABSOLUTE LYMPHOCYTES (AUTO) 2.2 10^3/uL (0.5-4.7); ABSOLUTE MONOCYTES (AUTO) 0.7 10^3/uL (0.1-1.4); ABSOLUTE NEUT (AUTO) 6.2 10^3/uL (1.7-8.2); BASOPHILS % (AUTO) 0.4 % (0-2); EOSINOPHILS % (AUTO) 0.9 % (0-6); HEMATOCRIT 37.7 % (36.0-47.0); LYMPHOCYTES % (AUTO) 23.8 % (13-45); MEAN CORPUSCULAR HGB CONC 34.5 g/dL (32.0-36.0); MEAN CORPUSCULAR VOLUME 81 fl (80-97); MONOCYTES % (AUTO) 7.4 % (3-13); PLATELET COUNT 402 10^3/uL (150-450); RED BLOOD COUNT 4.64 10^6/uL (3.72-5.28); RED CELL DISTRIBUTION WIDTH 13.3 % (11.5-14.0); SEGMENTED NEUTROPHILS % (AUTO) 67.5 % (42-78); TOTAL CELLS COUNTED % (AUTO) 100 %; WHITE BLOOD COUNT 9.1 10^3/uL (4.0-10.5)
[2018-02-27 19:43] LABS: ARTERIAL BLOOD BASE EXCESS -4.9 mmol/L; ARTERIAL BLOOD HCO3 20.6 mmol/L (20-24); ARTERIAL BLOOD O2 SATURATION 98.7 % (94-98); ARTERIAL BLOOD PCO2 39.8 mmHg (35-45); ARTERIAL BLOOD PH 7.33 (7.35-7.45); ARTERIAL BLOOD PO2 141.7 mmHg (80-100); ARTERIAL BLOOD TOTAL CO2 21.8 mmol/L (21-25)
[2018-02-27 19:44] LABS: ARTERIAL BLOOD FIO2 40%
[2018-02-27 19:48] LABS: APPEARANCE,URINE CLEAR; BILIRUBIN,URINE NEGATIVE (NEGATIVE); COLOR,URINE YELLOW; GLUCOSE, URINE NEGATIVE (NEGATIVE); KETONES,URINE NEGATIVE (NEGATIVE); LEUKOCYTE ESTERASE,URINE NEGATIVE (NEGATIVE); NITRITE,URINE NEGATIVE (NEGATIVE); PROTEIN,URINE NEGATIVE (NEGATIVE); URINE SPECIFIC GRAVITY 1.019; UROBILINOGEN,URINE NEGATIVE mg/dL (<2.0)
[2018-02-27 19:49] LABS: ALANINE AMINOTRANSFERASE 17 U/L (9-52); ALBUMIN 4.7 g/dL (3.5-5.0); ALKALINE PHOSPHATASE 68 U/L (38-126); ANION GAP 13 (5-19); ASPARTATE AMINO TRANSFERASE 19 U/L (14-36); BILIRUBIN,DIRECT 0.2 mg/dL (0.0-0.4); BILIRUBIN,TOTAL 0.4 mg/dL (0.2-1.3); BLOOD UREA NITROGEN 8 mg/dL (7-20); CALCIUM 9.9 mg/dL (8.4-10.2); CARBON DIOXIDE 25 mmol/L (22-30); CHLORIDE 101 mmol/L (98-107); GLUCOSE 115 mg/dL (75-110); SODIUM 139.1 mmol/L (137-145); TOTAL PROTEIN 7.3 g/dL (6.3-8.2)
--- NOTE | 2018-02-27 19:51 | RADIOLOGY REPORT (SQ) ---
EXAM DESCRIPTION: CHEST SINGLE VIEW COMPLETED DATE/TIME: 02/27/2018 7:31 pm REASON FOR STUDY: post intubation COMPARISON: 12/28/2017 EXAM PARAMETERS: NUMBER OF VIEWS: One view. TECHNIQUE: Single frontal radiographic view of the chest acquired. RADIATION DOSE: NA LIMITATIONS: None. FINDINGS: LUNGS AND PLEURA: No opacities, masses or pneumothorax. No pleural effusion. MEDIASTINUM AND HILAR STRUCTURES: No masses. Contour normal. HEART AND VASCULAR STRUCTURES: Heart normal in size. Normal vasculature. BONES: No acute findings. HARDWARE: Endotracheal tube has its tip 2 cm above the jazmin. OTHER: No other significant finding. IMPRESSION: Endotracheal tube as described. No acute pulmonary findings. TECHNICAL DOCUMENTATION: JOB ID: [id number] [employer]- All Rights Reserved Reading location - IP/workstation name: [email or web address]
--- NOTE | 2018-02-27 20:33 | EKG REPORT ---
SEVERITY:- ABNORMAL ECG - SINUS TACHYCARDIA VENTRICULAR BIGEMINY SHORT GA INTERVAL, ACCELERATED AV CONDUCTION REPOL ABNRM, PROBABLE ISCHEMIA, DIFFUSE LEADS BORDERLINE ST ELEVATION, ANTERIOR LEADS SHORT QT INTERVAL : Confirmed by: Dutch Chacon 27-Feb-2018 20:32:19
--- NOTE | 2018-02-27 20:33 | EKG REPORT ---
SEVERITY:- ABNORMAL ECG - SINUS WITH APCs REPOL ABNRM SUGGESTS ISCHEMIA, DIFFUSE LEADS : Confirmed by: Dutch Chacon 27-Feb-2018 20:32:05
--- NOTE | 2018-02-27 20:35 | EKG REPORT ---
SEVERITY:- BORDERLINE ECG - SINUS RHYTHM BORDERLINE PROLONGED QT INTERVAL NONSPECIFIC ST-T CHANGES, LVH : Confirmed by: Dutch Chacon 27-Feb-2018 20:33:52
--- NOTE | 2018-02-27 20:38 | ER Document Report ---
ED General - General Chief Complaint: Allergic Reaction Stated Complaint: SHORTNESS OF BREATH Time Seen by Provider: 02/27/18 19:23 Mode of Arrival: Medic Information source: Patient, Emergency Med Personnel, [facility] Records Cannot obtain history due to: Unstable vital signs Notes: 27-year-old female with known severe food allergies with multiple episodes of anaphylaxis requiring intubation presents via EMS in respiratory distress. EMS reports that the patient was at restaurant when she developed hives, shortness of breath. Upon their arrival patient did have urticaria. Benadryl, Solu-Medrol and IM epi administered prior to arrival. Upon arrival patient c omplaining of swelling of her throat, difficulty swallowing. Patient not able to talk and was quickly determined that patient would require intubation. TRAVEL OUTSIDE OF THE [place] IN LAST 30 DAYS: No - HPI Onset: Just prior to arrival Onset/Duration: Sudden Associated symptoms: Allergy/hay fever, Nonproductive cough, Shortness of breath. denies: Nausea, Vomiting Exacerbated by: Food Relieved by: Denies Similar symptoms previously: Yes Recently seen / treated by doctor: Yes - Related Data Allergies/Adverse Reactions: banana [Banana] Allergy (Severe, Verified 12/28/17 18:32) tree nut [Tree Nut] Allergy (Severe, Verified 12/28/17 18:32) wheat Allergy (Severe, Verified 12/28/17 18:32) rash latex [Latex] Allergy (Verified 12/28/17 18:32) RASH? UNKNOWN peanut Allergy (Verified 12/28/17 18:32) Penicillins Allergy (Verified 12/28/17 18:32) Quinolones Allergy (Verified 12/28/17 18:32) rash Sulfa (Sulfonamide Antibiotics) Allergy (Verified 12/28/17 18:32) rash Past Medical History - General Information source: Patient, Relative, [facility] Records Cannot obtain history due to: Unstable vital signs - Social History Smoking Status: Never Smoker Frequency of alcohol use: Occasional Drug Abuse: None Lives with: Spouse/Significant other Family History: Arthritis, CAD, CVA, DM, Hyperlipidemia, Hypertension, Malignancy, Thyroid Disfunction Patient has suicidal ideation: No Patient has homicidal ideation: No - Past Medical History Cardiac Medical History: Reports: Hx Heart Attack - Previous "type II" [place]. Denies: Hx Coronary Artery Disease, Hx Hypertension Pulmonary Medical History: Reports: Hx Asthma - exercise induced, Hx Pneumonia Denies: Hx Bronchitis, Hx COPD Neurological Medical History: Reports: Hx Seizures - Seizure 2 at 15 years of age, never on antiepileptic.. Denies: Hx Cerebrovascular Accident Renal/ Medical History: Reports: Hx Kidney Stones, Hx Ovarian Cysts. Denies: Hx Peritoneal Dialysis Musculoskeletal Medical History: Denies Hx Arthritis, Reports Hx Musculoskeletal Trauma Psychiatric Medical History: Reports: Hx Anxiety, Hx Bipolar Disorder, Hx Depr ession Traumatic Medical History: Reports: Hx Fractures, Hx Pneumothorax Past Surgical History: Reports: Hx Abdominal Surgery, Hx Cholecystectomy, Hx Gynecologic Surgery - exploratory for endometriosis, Hx Nose Surgery, Hx Oral Surgery - Immunizations Immunizations up to date: Yes Hx Diphtheria, Pertussis, Tetanus Vaccination: Yes Review of Systems - Review of Systems -: Yes ROS unobtainable due to patient's medical condition Respiratory: Cough, Short of breath, Wheezing Physical Exam - Vital signs Vitals: Resp BP Pulse Ox 16 219/126 H 100 02/27/18 19:13 02/27/18 19:13 02/27/18 19:13 Interpretation: Hypertensive, Tachycardic, Tachypneic. No: Hypoxic - Notes Notes: PHYSICAL EXAMINATION: GENERAL: Ill-appearing, acute distress, increased work of breathing, HEAD: Atraumatic, normocephalic. EYES: Pupils equal round and reactive to light, extraocular movements intact, conjunctiva are normal. ENT: Nares patent, edematous airway, unable to visualize oropharynx. NECK: Normal range of motion, supple without lymphadenopathy LUNGS: Diminished breath sounds in all lung hurd. Tachypnea, accessory muscle use, tripoding. HEART: Tachycardic, regular rhythm without murmurs ABDOMEN: Soft, nontender, nondistended abdomen. No guarding, no rebound. No masses appreciated. Female : deferred Musculoskeletal: Normal range of motion, no pitting or edema. No cyanosis. NEUROLOGICAL: Cranial nerves grossly intact. Normal speech, normal gait. Normal sensory, motor exams PSYCH: Anxious SKIN: Cool, mottled, no urticaria Course - Re-evaluation Re-evalutation: Laboratory 02/27/18 02/27/18 02/27/18 19:02 19:02 19:02 WBC 9.1 RBC 4.64 Hgb 13.0 Hct 37.7 MCV 81 MCH 28.0 MCHC 34.5 RDW 13.3 Plt Count 402 Seg Neutrophils % 67.5 Lymphocytes % 23.8 Monocytes % 7.4 Eosinophils % 0.9 Basophils % 0.4 Absolute Neutrophils 6.2 Absolute Lymphocytes 2.2 Absolute Monocytes 0.7 Absolute Eosinophils 0.1 Absolute Basophils 0.0 PT 13.4 INR 0.97 Carbonic Acid 1.20 HCO3/H2CO3 Ratio 17:1 ABG pH 7.33 L ABG pCO2 39.8 ABG pO2 141.7 H ABG HCO3 20.6 ABG Total CO2 21.8 ABG O2 Saturation 98.7 H ABG Base Excess -4.9 FiO2 40% Sodium Potassium Chloride Carbon Dioxide Anion Gap BUN Creatinine Est GFR ( Amer) Est GFR (Non-Af Amer) Glucose Calcium Total Bilirubin Direct Bilirubin Neonat Total Bilirubin Neonat Direct Bilirubin Neonat Indirect Bili AST ALT Alkaline Phosphatase Troponin I Total Protein Albumin Urine Color Urine Appearance Urine pH Ur Specific Effie Urine Protein Urine Glucose (UA) Urine Ketones Urine Blood Urine Nitrite Urine Bilirubin Urine Urobilinogen Ur Leukocyte Esterase Urine WBC (Auto) Urine RBC (Auto) Squamous Epi Cells Auto Urine Mucus (Auto) Urine Ascorbic Acid Urine HCG, Qual 02/27/18 02/27/18 02/27/18 19:02 19:02 19:16 WBC RBC Hgb Hct MCV MCH MCHC RDW Plt Count Seg Neutrophils % Lymphocytes % Monocytes % Eosinophils % Basophils % Absolute Neutrophils Absolute Lymphocytes Absolute Monocytes Absolute Eosinophils Absolute Basophils PT INR Carbonic Acid HCO3/H2CO3 Ratio ABG pH ABG pCO2 ABG pO2 ABG HCO3 ABG Total CO2 ABG O2 Saturation ABG Base Excess FiO2 Sodium 139.1 Potassium 4.0 Chloride 101 Carbon Dioxide 25 Anion Gap 13 BUN 8 Creatinine 0.70 Est GFR ( Amer) > 60 Est GFR (Non-Af Amer) > 60 Glucose 115 H Calcium 9.9 Total Bilirubin 0.4 Direct Bilirubin 0.2 Neonat Total Bilirubin Not Reportable Neonat Direct Bilirubin Not Reportable Neonat Indirect Bili Not Reportable AST 19 ALT 17 Alkaline Phosphatase 68 Troponin I < 0.012 Total Protein 7.3 Albumin 4.7 Urine Color YELLOW Urine Appearance CLEAR Urine pH 7.0 Ur Specific Effie 1.019 Urine Protein NEGATIVE Urine Glucose (UA) NEGATIVE Urine Ketones NEGATIVE Urine Blood NEGATIVE Urine Nitrite NEGATIVE Urine Bilirubin NEGATIVE Urine Urobilinogen NEGATIVE Ur Leukocyte Esterase NEGATIVE Urine WBC (Auto) 0 Urine RBC (Auto) 0 Squamous Epi Cells Auto <1 Urine Mucus (Auto) FEW Urine Ascorbic Acid 20 H Urine HCG, Qual NEGATIVE Chest X-Ray 02/27/18 19:24 IMPRESSION: Endotracheal tube as described. No acute pulmonary findings. Temp Pulse Resp BP Pulse Ox 14 121/74 100 02/27/18 20:16 02/27/18 20:16 02/27/18 20:16 02/27/18 20:37 27-year-old female with known severe food allergies, multiple previous episodes of anaphylactic shock requiring intubation presents via EMS after eating at a food restaurant just prior to arrival. Patient did have an EpiPen but told EMS she did not want to use it because it caused her to have a heart attack last time. Patient does have a history of an STEMI due to epinephrine use in March 2017. 02/27/18 20:38 Upon arrival patient is in respiratory distress. Patient did receive 0.3 mg of IM epinephrine, 125 Solu-Medrol and Pepcid by EMS prior to arrival. Patient has diminished breath sounds, tachypnea, increased work of breathing. Airway edematous. 02/27/18 20:39 Patient did receive 2 more rounds of IM epinephrine without relief of symptoms. She nodded her head yes when asked if this felt like similar symptoms in the past where she required intubation. 30 epinephrine drip was started. Patient was intubated using etomidate, succinylcholine. This was a difficult airway due to edema. She was successfully intubated after 2 attempts with the glide scope. Breath sounds heard bilaterally. Patient's initial EKG shows significant ST depression. Patient is EKG progressively improving and ST depressions are still present but less concerning. Awaiting troponin this patient has history of NSTEMI. 02/27/18 20:45 Patient sedated with propofol, Versed and has received intermittent IV pushes of fentanyl. 02/27/18 20:46 [facility] contacted for transfer I did speak to the MICU attending Dr. Aly Cruz who has accepted the patient. Awaiting room assignment. 02/27/18 20:51 Family now at the bedside and states that the patient has been seeing an jewel setter at [facility]. There is requesting a tryptase test which they were told should be done within an hour of an allergic reaction but we do not have that test here. Patient has been evaluated multiple times. She seems to be adequate the sedated. Current vital signs are heart rate of 91 blood pressure of 116/71 and O2 saturation of 100% ventilated. 02/27/18 22:15 Patient reevaluated upon transfer team arrival. Still adequately sedated. Vital signs prior to discharge blood pressure 119/74 heart rate of 72 respirations 18 pulse ox 99% temp 97.6 patient stable for transfer. Family is agreeable with transfer to [facility] - Vital Signs Vital signs: Temp Pulse Resp BP Pulse Ox 16 119/74 99 02/27/18 22:00 02/27/18 21:58 02/27/18 22:00 - Laboratory Result Diagrams: 02/27/18 19:02 02/27/18 19:02 Laboratory results interpreted by me: 02/27/18 02/27/18 02/27/18 19:02 19:02 19:16 ABG pH 7.33 L ABG pO2 141.7 H ABG O2 Saturation 98.7 H Glucose 115 H Urine Ascorbic Acid 20 H - Diagnostic Test Radiology reviewed: Image reviewed, Reports reviewed - EKG Interpretation by Me EKG shows normal: Sinus rhythm Rate: Tachycardia Rhythm: NSR - Diffuse ST depression in the first and second EKG with improvement on the third EKG. When compared to previous EKG there are: Changes noted Critical Care Note - Critical Care Note Total time excluding time spent on procedures (mins): 75 - Minutes of critical care time spent in direct contact evaluating and reevaluating the patient, treating symptoms, reviewing labs and studies and speaking with family and consultants excluding any procedures Discharge - Discharge Clinical Impression: Anaphylactic shock Condition: Critical Disposition: [facility] Referrals: GALILEO POWELL PA-C [Primary Care Provider] - Follow up as needed
[2018-02-27] MEDS ORDERED: FENTANYL CITRATE INJ/PF 100 MCG/2 ML AMPUL IV ONE ×2 (20:44→22:13)
[2018-02-27 22:01] VITALS: BP 119/74
[2018-02-27] MEDS ORDERED: EPINEPHRINE INJ/PF 1 MG/1 ML AMPULE IM ONE ×2 (22:12)
[2018-02-27] MEDS ORDERED: ETOMIDATE INJ/PF 20 MG/10 ML SDV IV ONE (22:13)
[2018-02-27] MEDS ORDERED: SUCCINYLCHOLINE CHLORIDE INJ 200 MG/10 ML VIAL IV ONE (22:13)
[2018-02-27] MEDS ORDERED: MIDAZOLAM HCL 50 MG/100 ML RTUINJ IV PRN (22:14)
== END 2018-02-27 22:20 | disposition short-term general hospital (02) ==
LOC: ER 19:04
PROC: 0BH17EZ Insertion of Endotracheal Airway into Trachea, Via Natural or Artificial Opening (ICD-10-PCS; principal; 2018-02-27)
DX: T78.2XXA Anaphylactic shock, unspecified, initial encounter (principal); L50.9 Urticaria, unspecified; R05 Cough; I25.2 Old myocardial infarction; J45.909 Unspecified asthma, uncomplicated; R00.0 Tachycardia, unspecified; R06.82 Tachypnea, not elsewhere classified
CPT/HCPCS: 93005; 94640; 99291; 99292; 96360; 36415; 82803; 85025; 85610; 81025; 80053; 81001; 84484; 71045; 94660; 93010; 31500; J0171; J3010; J2704; J0330; J2250; J7030; J3490; 94002

== ENCOUNTER 2018-03-19 22:02 | Emergency (ER) | payer BC ==
[~2018-03-19 22:02] MED LIST changes: -RACEPINEPHRINE HCL 2.25% NEB 0.5 ML AMPUL NEB ONE; +SUCCINYLCHOLINE CHLORIDE INJ 200 MG/10 ML VIAL ONE
[2018-03-19] MEDS ORDERED: ETOMIDATE INJ/PF 20 MG/10 ML SDV IV ONE (22:11)
[2018-03-19] MEDS ORDERED: EPINEPHRINE INJ 1 MG/10 ML DISP.SYRIN ONE (22:12)
[2018-03-19] MEDS ORDERED: NORMAL SALINE 1000 ML 1,000 ML IV ONE (22:15)
[2018-03-19] MEDS ORDERED: RACEPINEPHRINE HCL 2.25% NEB 0.5 ML AMPUL NEB ONE ×2 (22:15)
[2018-03-19] MEDS ORDERED: PROPOFOL 1,000 MG/100 ML INFUS..BTL IV ONE (22:23)
[2018-03-19] MEDS ORDERED: PROPOFOL 1,000 MG/100 ML INFUS..BTL IV PRN ×2 (22:30)
--- NOTE | 2018-03-19 22:34 | ER Document Report ---
ED General - General Stated Complaint: POSSIBLE ALLERGIC REACTION Time Seen by Provider: 03/19/18 22:28 Cannot obtain history due to: Unstable vital signs, Other - Unable to speak Notes: Patient is a 27-year-old female well-known to me with a history of severe anaphylactic reactions of airway compromise in the past who presents with abrupt onset of a sensation of throat swelling, difficulty breathing, similar to reactions that she has had in the past. EMS reports that the patient was in severe respiratory distress at time of arrival, has had minimal improvement using the standard anaphylaxis protocol. History is otherwise limited as p atient is in significant distress and unstable. TRAVEL OUTSIDE OF THE [place] IN LAST 30 DAYS: No - Related Data Allergies/Adverse Reactions: banana [Banana] Allergy (Severe, Verified 03/20/18 00:59) tree nut [Tree Nut] Allergy (Severe, Verified 03/20/18 00:59) wheat Allergy (Severe, Verified 03/20/18 00:59) rash latex [Latex] Allergy (Verified 03/20/18 00:59) RASH? UNKNOWN peanut Allergy (Verified 03/20/18 00:59) Penicillins Allergy (Verified 03/20/18 00:59) Quinolones Allergy (Verified 03/20/18 00:59) rash rocuronium Allergy (Verified 03/20/18 02:04) Sulfa (Sulfonamide Antibiotics) Allergy (Verified 03/20/18 00:59) rash Past Medical History - General Information source: Patient, Emergency Med Personnel Cannot obtain history due to: Unstable vital signs - Social History Smoking Status: Unknown if Ever Smoked Frequency of alcohol use: None Drug Abuse: None Lives with: Spouse/Significant other Family History: Arthritis, CAD, CVA, DM, Hyperlipidemia, Hypertension, Malignancy, Thyroid Disfunction - Past Medical History Cardiac Medical History: Reports: Hx Heart Attack - Previous "type II" [place]. Denies: Hx Coronary Artery Disease, Hx Hypertension Pulmonary Medical History: Reports: Hx Asthma - exercise induced, Hx Pneumonia Denies: Hx Bronchitis, Hx COPD Neurological Medical History: Reports: Hx Seizures - Seizure 2 at 15 years of age, never on antiepileptic.. Denies: Hx Cerebrovascular Accident Renal/ Medical History: Reports: Hx Kidney Stones, Hx Ovarian Cysts. Denies: Hx Peritoneal Dialysis Musculoskeletal Medical History: Denies Hx Arthritis, Reports Hx Musculoskeletal Trauma Psychiatric Medical History: Reports: Hx Anxiety, Hx Bipolar Disorder, Hx Depression Traumatic Medical History: Reports: Hx Fractures, Hx Pneumothorax Past Surgical History: Reports: Hx Abdominal Surgery, Hx Cholecystectomy, Hx Gynecologic Surgery - exploratory for endometriosis, Hx Nose Surgery, Hx Oral Surgery - Immunizations Immunizations up to date: Yes Hx Diphtheria, Pertussis, Tetanus Vaccination: Yes Review of Systems - Review of Systems -: Yes ROS unobtainable due to patient's medical condition Physical Exam - Vital signs Vitals: Resp Pulse Ox 18 100 03/19/18 22:12 03/19/18 22:12 Interpretation: Tachycardic, Tachypneic Notes: PHYSICAL EXAMINATION: GENERAL: Appears to be in severe distress, unable to speak HEAD: Atraumatic, normocephalic. EYES: Pupils equal round and reactive to light, extraocular movements intact, sclera anicteric, conjunctiva are normal. ENT: nares patent, oropharynx clear without exudates. Moist mucous membranes. NECK: Normal range of motion, supple without lymphadenopathy, no stridor. LUNGS: In respiratory distress, retracting the supraclavicular and intercostal spaces. Unable to speak. Obviously very uncomfortable with respirations. HEART: Regular tachycardia without murmurs ABDOMEN: Soft, nontender, normoactive bowel sounds. No guarding, no rebound. No masses appreciated. EXTREMITIES: Normal range of motion, no pitting or edema. No cyanosis. NEUROLOGICAL: No focal neurological deficits. Moves all extremities spontaneously and on command. PSYCH: Anxious but appropriate to situation SKIN: Warm, Dry, normal turgor, no rashes or lesions noted. Course - Re-evaluation Re-evalutation: 03/19/18 22:31 Documentation is delayed as I been at this patient's bedside continuously since she arrived. This patient is well-known to me, is a history of severe allergic reactions requiring intubation on multiple occasions including several weeks ago. In summary the patient arrives in respiratory distress, unable to speak, grasping at her neck and asking to be intubated. I was present in the room the last and the patient presented to the hospital proxy 1 week ago, visualized on glide scope to be extremely edematous and the arytenoid cartilage, vocal cords and epiglottis. The patient was unable to speak today. Sugar head yes when I asked her if this felt similar to previous occasions where she has required intubation. She was noted to be saturating 91% on room air, coarse wheezing in all lung hurd and tight air movement throughout. No audible stridor. Patient was given 0.8 mg of intramuscular epinephrine prior to arrival 125 of Solu- Medrol and Benadryl without any improvement. Epinephrine drip was started here again without resolution or improvement. At this point we did elect to proceed with intubation. The patient's neck was prepped for possible cricothyrotomy. Thankfully the patient's airway was minimally edematous today, airway was achiev ed without difficulty. Patient remains medically ill, will require frequent and regular reassessments. 03/19/18 23:10 Patient sedation has been difficult to manage. She has been minimally responsi ve to propofol. Will transition to Versed and fentanyl. Patient remains hemodynamically within normal limits. I did discuss with Dr. Barrios who declined to admit the patient here given her repeated needs for transfer in the past as well as lack of any critical care availability. I have discussed with [facility], awaiting callback. 03/20/18 00:51 I have yet to hear back from [facility]. The patient has continued to require difficulty with sedation although is better controlled with Versed and fentanyl. She remains on epinephrine infusion. Blood pressure 120 and 76, heart rate 107. Overall doing much better than over the past 1 hour. I have recontacted [facility] and requesting repeat call back. 03/20/18 02:00 Patient remains intubated, hemodynamically within acceptable limits. Critical transport by ground has arrived. Patient is appropriate for transport. - Vital Signs Vital signs: Temp Pulse Resp BP Pulse Ox 16 107/68 100 03/20/18 01:58 03/20/18 01:59 03/20/18 01:58 - Laboratory Result Diagrams: 03/19/18 22:45 03/19/18 22:45 Laboratory results interpreted by me: 03/19/18 03/19/18 22:45 22:45 Plt Count 561 H Potassium 3.2 L Carbon Dioxide 20 L Glucose 193 H - Diagnostic Test Radiology reviewed: Image reviewed, Reports reviewed Radiology results interpreted by me: 03/20/18 03:57 Chest x-ray: ET tube in appropriate position. - EKG Interpretation by Me Additional EKG results interpreted by me: 03/20/18 03:59 Sinus tachycardia, rate 107. Minimal ST depression in the lateral leads. QT prolonged at 513. Procedures - Intubation Orotracheal Airway evaluation: Normal anatomy Mallampati Classification: Class 2 Medications: Etomidate, Succinylcholine Intubation method: Orotracheal Blade type: Destiny Blade size: 4 Equipment used: Glidescope ETT size: 7.5 ETT secured at: Lips ETT secured at (cm): 22 Breath Sounds after Intubation: Equal End tidal CO2 confirmed: Yes Ventilator settings: SIMV Tidal volume: 400 Respirations: 16 PEEP: 5 Post Intubation Xray: Yes Intubation Complications: No complications Critical Care Note - Critical Care Note Total time excluding time spent on procedures (mins): 78 Comments: Critical care time spent obtaining history from patient or surrogate, d iscussions with consultants, development of treatment plan with patient or surrogate, evaluation of patient's response to treatment, examination of patient, ordering and performing treatments and interventions, ordering and review of laboratory studies, re-evaluation of patient's condition, ordering and review of radiographic studies and review of old charts Discharge - Discharge Clinical Impression: Respiratory distress Anaphylaxis Qualifiers: Encounter type: initial encounter Qualified Code(s): T78.2XXA - Anaphylactic shock, unspecified, initial encounter Condition: Critical Disposition: Count Includes [facility] Referrals: GALILEO POWELL PA-C [Primary Care Provider] - Follow up as needed
[2018-03-19] MEDS ORDERED: FENTANYL CITRATE INJ/PF 100 MCG/2 ML AMPUL ONE (22:47)
[2018-03-19] MEDS: FENTANYL CITRATE INJ/PF 100 MCG/2 ML AMPUL IV PRN (22:52)
[2018-03-19 23:01] LABS: ABSOLUTE EOSINOPHILS # (AUTO) 0.1 10^3/uL (0.0-0.6); ABSOLUTE LYMPHOCYTES (AUTO) 2.3 10^3/uL (0.5-4.7); ABSOLUTE MONOCYTES (AUTO) 0.4 10^3/uL (0.1-1.4); ABSOLUTE NEUT (AUTO) 7.2 10^3/uL (1.7-8.2); BASOPHILS % (AUTO) 0.4 % (0-2); EOSINOPHILS % (AUTO) 0.6 % (0-6); HEMATOCRIT 36.8 % (36.0-47.0); HEMOGLOBIN 12.5 g/dL (12.0-15.5); LYMPHOCYTES % (AUTO) 22.9 % (13-45); MEAN CORPUSCULAR HEMOGLOBIN 27.9 pg (27.0-33.4); MEAN CORPUSCULAR VOLUME 82 fl (80-97); MONOCYTES % (AUTO) 3.8 % (3-13); PLATELET COUNT 561 10^3/uL (150-450); RED BLOOD COUNT 4.47 10^6/uL (3.72-5.28); RED CELL DISTRIBUTION WIDTH 13.8 % (11.5-14.0); SEGMENTED NEUTROPHILS % (AUTO) 72.3 % (42-78); TOTAL CELLS COUNTED % (AUTO) 100 %; WHITE BLOOD COUNT 9.9 10^3/uL (4.0-10.5)
[2018-03-19] MEDS ORDERED: MIDAZOLAM HCL 50 MG/100 ML RTUINJ IV PRN (23:09)
--- NOTE | 2018-03-19 23:23 | RADIOLOGY REPORT (SQ) ---
EXAM DESCRIPTION: XR CHEST 1 VIEW COMPLETED DATE/TME: 03/19/2018 22:29 CLINICAL HISTORY: 27 years Female, post intubation COMPARISON: 02/27/18 NUMBER OF VIEWS/TECHNIQUE: 1/AP FINDINGS: Adequate lung volume, clear parenchyma, normal cardiac silhouette, and intact bony thorax. Adequate appearing endotracheal tube. Likely adequate appearing enteric tube partially obscured. Right upper abdominal clips. IMPRESSION: No acute cardiopulmonary findings.
[2018-03-19 23:24] LABS: ANION GAP 14 (5-19); BLOOD UREA NITROGEN 8 mg/dL (7-20); CALCIUM 9.6 mg/dL (8.4-10.2); CARBON DIOXIDE 20 mmol/L (22-30); CHLORIDE 106 mmol/L (98-107); GLUCOSE 193 mg/dL (75-110); POTASSIUM 3.2 mmol/L (3.6-5.0); SODIUM 140.2 mmol/L (137-145)
[2018-03-20] MEDS: FENTANYL CITRATE INJ/PF 100 MCG/2 ML AMPUL IV PRN ×2 (00:28→01:56)
[2018-03-20] MEDS ORDERED: EPINEPHRINE INJ 1 MG/10 ML DISP.SYRIN IV ONE (00:53)
[2018-03-20 02:01] VITALS: BP 107/68
--- NOTE | 2018-03-20 18:35 | EKG REPORT ---
SEVERITY:- ABNORMAL ECG - SINUS TACHYCARDIA INFERIOR Q WAVES, PROBABLY NORMAL VARIATION MINIMAL ST DEPRESSION, DIFFUSE LEADS PROLONGED QT INTERVAL : Confirmed by: Dutch Chacon 20-Mar-2018 18:35:11
== END 2018-03-20 02:25 | disposition short-term general hospital (02) ==
LOC: ER 22:02
DX: R06.03 Acute respiratory distress (principal); T78.2XXA Anaphylactic shock, unspecified, initial encounter; X58.XXXA Exposure to other specified factors, initial encounter; Z88.0 Allergy status to penicillin; Z88.2 Allergy status to sulfonamides; Z91.040 Latex allergy status; Z91.018 Allergy to other foods; Z91.010 Allergy to peanuts; I25.2 Old myocardial infarction; Z87.442 Personal history of urinary calculi; Z90.49 Acquired absence of other specified parts of digestive tract
CPT/HCPCS: 93005; 99291; 99292; 36415; 84703; 85025; 80048; 84484; 71045; 94660; 31500; 93010; J0171; J3010 ×2; J2704; J0330; J2250; J7030; J3490 ×2

== ENCOUNTER 2018-09-20 12:44 | Inpatient (IN) | payer BC ==
--- NOTE | 2018-09-20 13:00 | ER Document Report ---
ED Allergic Reaction - General Stated Complaint: WHEEZING Time Seen by Provider: 09/20/18 12:50 Primary Care Provider: GALILEO POWELL PA-C [Primary Care Provider] - Follow up as needed Mode of Arrival: Medic TRAVEL OUTSIDE OF THE [place] 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 benadryl, solumedrol, and pepcid. Pt. feels better but her "throat still feels tight." She has required intubation in the past - Related Data Allergies/Adverse Reactions: banana [Banana] Allergy (Severe, Verified 03/20/18 00:59) tree nut [Tree Nut] Allergy (Severe, Verified 03/20/18 00:59) wheat Allergy (Severe, Verified 03/20/18 00:59) rash latex [Latex] Allergy (Verified 03/20/18 00:59) RASH? UNKNOWN peanut Allergy (Verified 03/20/18 00:59) Penicillins Allergy (Verified 03/20/18 00:59) Quinolones Allergy (Verified 03/20/18 00:59) rash rocuronium Allergy (Verified 03/20/18 02:04) Sulfa (Sulfonamide Antibiotics) Allergy (Verified 03/20/18 00:59) rash Past Medical History - General Information source: Patient, Relative - Social History Smoking Status: Unknown if Ever Smoked Family History: Arthritis, CAD, CVA, DM, Hyperlipidemia, Hypertension, Mal ignancy, Thyroid Disfunction - Past Medical History Cardiac Medical History: Reports: Hx Heart Attack - Previous "type II" [place]. Denies: Hx Coronary Artery Disease, Hx Hypertension Pulmonary Medical History: Reports: Hx Asthma - exercise induced, Hx Pneumonia Denies: Hx Bronchitis, Hx COPD Neurological Medical History: Reports: Hx Seizures - Seizure 2 at 15 years of age, never on antiepileptic.. Denies: Hx Cerebrovascular Accident Renal/ Medical History: Reports: Hx Kidney Stones, Hx Ovarian Cysts. Denies: Hx Peritoneal Dialysis Musculoskeletal Medical History: Denies Hx Arthritis, Reports Hx Musculoskeletal Trauma Psychiatric Medical History: Reports: Hx Anxiety, Hx Bipolar Disorder, Hx Depression Traumatic Medical History: Reports: Hx Fractures, Hx Pneumothorax Past Surgical History: Reports: Hx Abdominal Surgery, Hx Cholecystectomy, Hx Gynecologic Surgery - exploratory for endometriosis, Hx Nose Surgery, Hx Oral Surgery - Immunizations Immunizations up to date: Yes Hx Diphtheria, Pertussis, Tetanus Vaccination: Yes Review of Systems - Review of Systems Constitutional: No symptoms reported EENT: No symptoms reported Cardiovascular: No symptoms reported Respiratory: See HPI, Short of breath Gastrointestinal: No symptoms reported Musculoskeletal: No symptoms reported Neurological/Psychological: No symptoms reported -: Yes All other systems reviewed and negative Physical Exam - General General appearance: Appears well, Anxious In distress: None - HEENT Head: Normocephalic Pupils: PERRL Mouth/Lips: Normal Mucous membranes: Normal Pharynx: Normal. No: Erythema, Exudate Neck: Normal - Respiratory Respiratory status: No respiratory distress Chest status: Nontender Breath sounds: Normal - Cardiovascular Rhythm: Regular Heart sounds: Normal auscultation Murmur: No - Abdominal Inspection: Normal Tenderness: Nontender - Back Back: Normal - Extremities General upper extremity: Normal inspection General lower extremity: Normal inspection - Neurological Neuro grossly intact: Yes Cognition: Normal Orientation: AAOx4 Course - Re-evaluation Re-evalutation: 09/20/18 13:56 Pt. continued to c/o that her throat felt "tight" and she (and her ) became very concerned that "her airway was going to close off quickly like it had done in the past. I decided it was best to prophylactically intubate her before it became a "crash" intubation. and pt. are in agreement with this. We have called anesthesia to do this as she mckinley been a difficult intubation in the past. - Laboratory Result Diagrams: 09/20/18 13:04 09/20/18 13:04 Laboratory results interpreted by me: 09/20/18 09/20/18 09/20/18 12:57 13:04 13:04 RDW 14.4 H Glucose 119 H AST 37 H Urine Blood SMALL H Critical Care Note - Critical Care Note Total time excluding time spent on procedures (mins): 30 Discharge - Discharge Clinical Impression: Anaphylactic reaction Qualifiers: Encounter type: subsequent encounter Qualified Code(s): T78.2XXD - Anaphylactic shock, unspecified, subsequent encounter Condition: Fair Disposition: ADMITTED INPATIENT Admitting Provider: Fatou (Hospitalist) Unit Admitted: ICU Referrals: GALILEO POWELL PA-C [Primary Care Provider] - Follow up as needed
[2018-09-20] MEDS ORDERED: LORAZEPAM INJ 2 MG/1 ML VIAL IV ONE (13:08)
[2018-09-20 13:18] LABS: APPEARANCE,URINE CLEAR; BILIRUBIN,URINE NEGATIVE (NEGATIVE); COLOR,URINE STRAW; GLUCOSE, URINE NEGATIVE (NEGATIVE); KETONES,URINE NEGATIVE (NEGATIVE); LEUKOCYTE ESTERASE,URINE NEGATIVE (NEGATIVE); NITRITE,URINE NEGATIVE (NEGATIVE); PROTEIN,URINE NEGATIVE (NEGATIVE); URINE SPECIFIC GRAVITY 1.006; UROBILINOGEN,URINE NEGATIVE mg/dL (<2.0)
[2018-09-20 13:20] LABS: ABSOLUTE LYMPHOCYTES (AUTO) 1.3 10^3/uL (0.5-4.7); ABSOLUTE MONOCYTES (AUTO) 0.3 10^3/uL (0.1-1.4); ABSOLUTE NEUT (AUTO) 3.4 10^3/uL (1.7-8.2); BASOPHILS % (AUTO) 0.8 % (0-2); HEMATOCRIT 38.3 % (36.0-47.0); HEMOGLOBIN 12.9 g/dL (12.0-15.5); LYMPHOCYTES % (AUTO) 26.5 % (13-45); MEAN CORPUSCULAR HGB CONC 33.7 g/dL (32.0-36.0); MEAN CORPUSCULAR VOLUME 80 fl (80-97); MONOCYTES % (AUTO) 5.4 % (3-13); PLATELET COUNT 340 10^3/uL (150-450); RED BLOOD COUNT 4.77 10^6/uL (3.72-5.28); RED CELL DISTRIBUTION WIDTH 14.4 % (11.5-14.0); SEGMENTED NEUTROPHILS % (AUTO) 67.3 % (42-78); TOTAL CELLS COUNTED % (AUTO) 100 %
[2018-09-20] MEDS ORDERED: PROPOFOL INJ 200 MG/20 ML VIAL IV ONE ×2 (13:37→13:52)
[2018-09-20 13:42] LABS: ALANINE AMINOTRANSFERASE 28 U/L (9-52); ALBUMIN 4.8 g/dL (3.5-5.0); ALKALINE PHOSPHATASE 84 U/L (38-126); ANION GAP 11 (5-19); ASPARTATE AMINO TRANSFERASE 37 U/L (14-36); BILIRUBIN,DIRECT 0.4 mg/dL (0.0-0.4); BILIRUBIN,TOTAL 0.5 mg/dL (0.2-1.3); BLOOD UREA NITROGEN 9 mg/dL (7-20); CALCIUM 9.5 mg/dL (8.4-10.2); CARBON DIOXIDE 28 mmol/L (22-30); CHLORIDE 103 mmol/L (98-107); GLUCOSE 119 mg/dL (75-110); POTASSIUM 3.8 mmol/L (3.6-5.0); TOTAL PROTEIN 7.9 g/dL (6.3-8.2)
[2018-09-20] MEDS ORDERED: PROPOFOL 1,000 MG/100 ML INFUS..BTL IV ONE (13:46)
[2018-09-20] MEDS ORDERED: PROPOFOL 1,000 MG/100 ML INFUS..BTL IV PRN (13:47)
[2018-09-20] MEDS ORDERED: ONDANSETRON HCL INJ/PF 4 MG/2 ML SDV IV PRN (14:22)
[2018-09-20] MEDS ORDERED: ACETAMINOPHEN 650 MG SUPP.RECT PR PRN (14:22)
[2018-09-20] MEDS ORDERED: PHARMACY COMMUNICATION ORDER MC NR (14:30)
--- NOTE | 2018-09-20 14:47 | RADIOLOGY REPORT (SQ) ---
EXAM DESCRIPTION: CHEST SINGLE VIEW COMPLETED DATE/TIME: 09/20/2018 2:11 pm REASON FOR STUDY: allergic reaciton COMPARISON: 03/19/2018 EXAM PARAMETERS: NUMBER OF VIEWS: One view. TECHNIQUE: Single frontal radiographic view of the chest acquired. RADIATION DOSE: NA LIMITATIONS: None. FINDINGS: LUNGS AND PLEURA: No opacities, masses or pneumothorax. No pleural effusion. MEDIASTINUM AND HILAR STRUCTURES: No masses. Contour normal. HEART AND VASCULAR STRUCTURES: Heart normal in size. Normal vasculature. BONES: No acute findings. HARDWARE: Endotracheal tube remains in place. NG tube extends to the stomach. OTHER: No other significant finding. IMPRESSION: NO ACUTE RADIOGRAPHIC FINDING IN THE CHEST. TECHNICAL DOCUMENTATION: JOB ID: [id number] [employer]- All Rights Reserved Reading location - IP/workstation name: [email or web address]
--- NOTE | 2018-09-20 15:40 | PDOC H&P ---
History of Present Illness Admission Date/PCP: GALILEO POWELL PA-C Patient complains of: Throat tightness and swelling for possible anaphylaxis History of Present Illness: BERNICE DAVENPORT is a 27 year old female with past medical history of mast cell activation syndrome with anaphylaxis presented to [facility] emergency room earlier this morning with complaints of throat tightness and swelling. Patient denied exposure to any known allergens. She did give herself an injection of her EpiPen prior to calling 911. EMS found her mildly tachypne ic but otherwise in no respiratory distress. She was given IV Pepcid, Solu- Medrol and Benadryl in route to the hospital. Upon her arrival she was stating she continued to feel better but not normal. She was evaluated by the emergency room provider Dr. Lyons. She was found to have no stridor and normal oxygen saturations on room air. Because of her continued complaints however, after discussion with her family, it was decided to electively intubate her overnight and treat her for possible anaphylaxis. Anesthesia was called and she was electively intubated without difficulty. She was referred to the hospitalist service for admission. Her remains at bedside. He states she has been intubated 9 or 10 times in the past for the same. Past Medical History Cardiac Medical History: Reports: Myocardial Infarction - Previous "type II" [place]. Denies: Coronary Artery Disease, Hypertension Pulmonary Medical History: Reports: Asthma - exercise induced, Pneumonia Denies: Bronchitis, Chronic Obstructive Pulmonary Disease (COPD) EENT Medical History: Reports: None Neurological Medical History: Reports: Seizures - Seizure 2 at 15 years of age, never on antiepileptic. Endocrine Medical History: Reports: None Renal/ Medical History: Reports: None Malignancy Medical History: Reports: None GI Medical History: Reports: None Musculoskeltal Medical History: Reports: None Denies: Arthritis Psychiatric Medical History: Reports: Bipolar Disorder, Depression Traumatic Medical History: Reports: Pneumothorax Hematology: Reports: None Denies: Anemia Infectious Medical History: Reports: None Past Surgical History Past Surgical History: Reports: Cholecystectomy Social History Information Source: Relative - Lives with: Spouse/Significant other Smoking Status: Never Smoker Frequency of Alcohol Use: None Hx Recreational Drug Use: No Drugs: None Hx Prescription Drug Abuse: Yes - Suspected. - Advance Directive Resuscitation Status: Full Code Surrogate healthcare decision maker:: Family History Family History: Arthritis, CAD, CVA, DM, Hyperlipidemia, Hypertension, Malignancy, Thyroid Disfunction Parental Family History Reviewed: Yes Children Family History Reviewed: NA Sibling(s) Family History Reviewed.: Yes Medication/Allergy Home Medications: Bupropion HCl [Wellbutrin 75 mg Tablet] 75 mg PO BID 05/14/17 Diphenhydramine HCl [Benadryl 25 mg Capsule] 75 mg PO BID 05/14/17 Lamotrigine [Lamictal] 200 mg PO QHS 05/14/17 Trazodone HCl [Desyrel] 200 mg PO QHS 05/14/17 Ibuprofen 800 mg PO Q8HP PRN #20 tablet 08/14/17 Doxycycline Hyclate 150 mg PO DAILY 11/10/17 Ranitidine HCl 1 tab PO BID 11/10/17 Ibuprofen [Ibu] 800 mg PO Q8 #60 tablet 11/19/17 Ibuprofen [Motrin 800 mg Tablet] 800 mg PO Q8H PRN #30 tab 11/19/17 Naproxen [Naprosyn 250 mg Tablet] 250 mg PO DAILY PRN 11/19/17 Oxycodone HCl/Acetaminophen [Percocet 5-325 mg Tablet] 1 - 2 tab PO ASDIR PRN #4 0 tablet 11/19/17 Allergies/Adverse Reactions: banana [Banana] Allergy (Severe, Verified 03/20/18 00:59) tree nut [Tree Nut] Allergy (Severe, Verified 03/20/18 00:59) wheat Allergy (Severe, Verified 03/20/18 00:59) rash latex [Latex] Allergy (Verified 03/20/18 00:59) RASH? UNKNOWN peanut Allergy (Verified 03/20/18 00:59) Penicillins Allergy (Verified 03/20/18 00:59) Quinolones Allergy (Verified 03/20/18 00:59) rash rocuronium Allergy (Verified 03/20/18 02:04) Sulfa (Sulfonamide Antibiotics) Allergy (Verified 03/20/18 00:59) rash Physical Exam General appearance: PRESENT: thin Head exam: PRESENT: atraumatic, normocephalic Eye exam: PRESENT: conjunctiva pink, EOMI, PERRLA. ABSENT: scleral icterus Ear exam: PRESENT: normal external ear exam Mouth exam: PRESENT: moist, neck supple, tongue midline, other - No signs of angioedema Neck exam: ABSENT: carotid bruit, JVD, lymphadenopathy, thyromegaly Respiratory exam: PRESENT: clear to auscultation rudi. ABSENT: rales, rhonchi, wheezes Cardiovascular exam: PRESENT: RRR. ABSENT: diastolic murmur, rubs, systolic murmur Pulses: PRESENT: normal dorsalis pedis pul Vascular exam: PRESENT: normal capillary refill GI/Abdominal exam: PRESENT: normal bowel sounds, soft. ABSENT: distended, guarding, mass, organolmegaly, rebound, tenderness Rectal exam: PRESENT: deferred Extremities exam: PRESENT: full ROM. ABSENT: calf tenderness, clubbing, pedal edema Musculoskeletal exam: PRESENT: full ROM Neurological exam: PRESENT: other - intubated and sedated Psychiatric exam: PRESENT: other - intubated and sedated Skin exam: PRESENT: dry, intact, warm. ABSENT: cyanosis, rash Results Laboratory Results: 09/20/18 13:04 09/20/18 13:04 09/20/18 09/20/18 09/20/18 12:57 13:04 13:04 WBC 5.0 RBC 4.77 Hgb 12.9 Hct 38.3 MCV 80 MCH 27.0 MCHC 33.7 RDW 14.4 H Plt Count 340 Seg Neutrophils % 67.3 Lymphocytes % 26.5 Monocytes % 5.4 Eosinophils % 0.0 Basophils % 0.8 Absolute Neutrophils 3.4 Absolute Lymphocytes 1.3 Absolute Monocytes 0.3 Absolute Eosinophils 0.0 Absolute Basophils 0.0 Sodium 142.0 Potassium 3.8 Chloride 103 Carbon Dioxide 28 Anion Gap 11 BUN 9 Creatinine 0.59 Est GFR ( Amer) > 60 Est GFR (Non-Af Amer) > 60 Glucose 119 H Calcium 9.5 Total Bilirubin 0.5 AST 37 H ALT 28 Alkaline Phosphatase 84 Total Protein 7.9 Albumin 4.8 Urine Color STRAW Urine Appearance CLEAR Urine pH 7.0 Ur Specific [place] 1.006 Urine Protein NEGATIVE Urine Glucose (UA) NEGATIVE Urine Ketones NEGATIVE Urine Blood SMALL H Urine Nitrite NEGATIVE Ur Leukocyte Esterase NEGATIVE Urine WBC (Auto) 1 Urine RBC (Auto) 1 Assessment and Plan - Diagnosis (1) Anaphylaxis Qualifiers: Encounter type: initial encounter Qualified Code(s): T78.2XXA - Anaphylactic shock, unspecified, initial encounter Is this a current diagnosis for this admission?: Yes Plan: Patient complained of throat tightness and swelling. She had no stridor or signs of respiratory compromise. Because of her history of mast cell activation syndrome, it was decided by the emergency room providers to electively intubate her care for anaphylaxis overnight. Anesthesia intubated her without difficulty. She is presently sedated on propofol. We will continue IV Solu- Medrol, Pepcid and Benadryl overnight. She has no angioedema or urticaria. Her states she has been intubated 8 or 9 times prior (2) Bipolar disorder Qualifiers: Active/Remission status: remission status unspecified Qualified Code(s): F31.9 - Bipolar disorder, unspecified Is this a current diagnosis for this admission?: Yes Plan: We will hold home medications for now since she is n.p.o. - Time Medications reviewed and adjusted accordingly: Yes Anticipated discharge: Home Within: within 48 hours - Inpatient Certification Based on my medical assessment, after consideration of the patient's comorbidities, presenting symptoms, or acuity I expect that the services needed warrant INPATIENT care.: Yes I certify that my determination is in accordance with my understanding of Medicare's requirements for reasonable and necessary INPATIENT services [42 CFR 412.3e].: Yes Medical Necessity: Significant Comorbidiites Make Outpatient Treatment Too Risky, Need Close Monitoring Due to Risk of Patient Decompensation, Risk of Complication if Not Cared For in Hospital
--- NOTE | 2018-09-20 15:44 | RADIOLOGY REPORT (SQ) ---
EXAM DESCRIPTION: KUB/ABDOMEN (SINGLE VIEW) COMPLETED DATE/TIME: 09/20/2018 2:46 pm REASON FOR STUDY: Check Placement of NG Tube COMPARISON: None. NUMBER OF VIEWS: One view. TECHNIQUE: Supine radiographic image of the abdomen acquired. LIMITATIONS: None. FINDINGS: BOWEL GAS PATTERN: Normal bowel gas pattern. No dilated loops. CALCIFICATIONS: No suspicious calcifications. SOFT TISSUES: No gross mass or suggestion of organomegaly. HARDWARE: Nasogastric tube with the distal end in the stomach. Surgical clips. BONES: No acute fracture. No worrisome bone lesions. OTHER: No other significant finding. IMPRESSION: NASOGASTRIC TUBE IN THE STOMACH. NO RADIOGRAPHIC EVIDENCE FOR ACUTE ABDOMINAL DISEASE. TECHNICAL DOCUMENTATION: JOB ID: [id number] [employer]- All Rights Reserved Reading location - IP/workstation name: [email or web address]
[2018-09-20] MEDS: PROPOFOL 1,000 MG/100 ML INFUS..BTL IV PRN ×2 (17:32→20:04)
[2018-09-20] MEDS: DIPHENHYDRAMINE HCL 50 MG/ML VIAL IV PRN (20:06)
[2018-09-20] MEDS: NORMAL SALINE 1000 ML 1,000 ML IV PRN (20:10)
[2018-09-20] MEDS: METHYLPREDNISOLONE INJ 125 MG/2 ML SDV IV SCH (22:35)
[2018-09-21] MEDS: PROPOFOL 1,000 MG/100 ML INFUS..BTL IV PRN ×5 (00:11→21:45)
[2018-09-21] MEDS: DIPHENHYDRAMINE HCL 50 MG/ML VIAL IV PRN ×2 (00:13→20:00)
[2018-09-21] MEDS: NORMAL SALINE 1000 ML 1,000 ML IV PRN ×3 (03:12→17:27)
[2018-09-21 04:10] LABS: ABSOLUTE LYMPHOCYTES (AUTO) 0.6 10^3/uL (0.5-4.7); ABSOLUTE MONOCYTES (AUTO) 0.1 10^3/uL (0.1-1.4); ABSOLUTE NEUT (AUTO) 5.4 10^3/uL (1.7-8.2); BASOPHILS % (AUTO) 0.2 % (0-2); HEMATOCRIT 32.9 % (36.0-47.0); HEMOGLOBIN 11.1 g/dL (12.0-15.5); MEAN CORPUSCULAR HEMOGLOBIN 27.1 pg (27.0-33.4); MEAN CORPUSCULAR HGB CONC 33.8 g/dL (32.0-36.0); MEAN CORPUSCULAR VOLUME 80 fl (80-97); MONOCYTES % (AUTO) 1.5 % (3-13); PLATELET COUNT 301 10^3/uL (150-450); RED CELL DISTRIBUTION WIDTH 14.2 % (11.5-14.0); SEGMENTED NEUTROPHILS % (AUTO) 88.3 % (42-78); TOTAL CELLS COUNTED % (AUTO) 100 %; WHITE BLOOD COUNT 6.2 10^3/uL (4.0-10.5)
[2018-09-21 04:34] LABS: ALANINE AMINOTRANSFERASE 23 U/L (9-52); ALBUMIN 3.5 g/dL (3.5-5.0); ALKALINE PHOSPHATASE 65 U/L (38-126); ANION GAP 10 (5-19); ASPARTATE AMINO TRANSFERASE 15 U/L (14-36); BILIRUBIN,DIRECT 0.2 mg/dL (0.0-0.4); BILIRUBIN,TOTAL 0.2 mg/dL (0.2-1.3); BLOOD UREA NITROGEN 10 mg/dL (7-20); CALCIUM 8.5 mg/dL (8.4-10.2); CARBON DIOXIDE 20 mmol/L (22-30); CHLORIDE 108 mmol/L (98-107); GLUCOSE 124 mg/dL (75-110); TOTAL PROTEIN 5.9 g/dL (6.3-8.2)
[2018-09-21] MEDS: METHYLPREDNISOLONE INJ 125 MG/2 ML SDV IV SCH ×3 (05:29→21:46)
[2018-09-21] MEDS: ENOXAPARIN SODIUM INJ 40 MG/0.4 ML DISP.SYRIN SUBCUT SCH (11:11)
--- NOTE | 2018-09-21 16:32 | PDOC PROGRESS REPORT ---
Subjective Progress Note for:: 09/21/18 Subjective:: No adverse events overnight. The patient will wake up while on a lot of sedation and indicate that she does not want to come off the ventilator. Apparently her mother told the staff that she does not want her extubated either. Patient has done well on the ventilator and shows no signs of distress. Vital signs have been stable. Reason For Visit: ANAPHYLAXIS Physical Exam Vital Signs: Temp Pulse Resp BP Pulse Ox 98.8 F 60 18 143/88 H 99 09/21/18 14:00 09/21/18 14:00 09/21/18 14:00 09/21/18 14:00 09/21/18 16:00 Intake & Output 09/20/18 09/21/18 09/22/18 06:59 06:59 06:59 Intake Total 1251 919 Output Total 540 670 Balance 711 249 Weight 51.5 kg General appearance: PRESENT: no acute distress, disheveled, other - Sedated, intubated Respiratory exam: PRESENT: clear to auscultation rudi, symmetrical, unlabored. ABSENT: accessory muscle use, chest wall tenderness, crackles, prolonged expiratory phas, rales, rhonchi, tachypnea, wheezes Cardiovascular exam: PRESENT: RRR, +S1, +S2 Pulses: PRESENT: normal carotid pulses Vascular exam: PRESENT: normal capillary refill GI/Abdominal exam: PRESENT: normal bowel sounds, soft. ABSENT: distended, guarding, rebound, tenderness Extremities exam: ABSENT: clubbing, pedal edema Musculoskeletal exam: PRESENT: normal inspection. ABSENT: deformity Neurological exam: PRESENT: oriented to person, other - Sedated but will arouse to mild stimuli, intubated Skin exam: PRESENT: dry, warm Results Laboratory Results: 09/21/18 03:41 09/21/18 03:41 09/21/18 09/21/18 03:41 03:41 WBC 6.2 RBC 4.10 Hgb 11.1 L Hct 32.9 L MCV 80 MCH 27.1 MCHC 33.8 RDW 14.2 H Plt Count 301 Seg Neutrophils % 88.3 H Lymphocytes % 10.0 L Monocytes % 1.5 L Eosinophils % 0.0 Basophils % 0.2 Absolute Neutrophils 5.4 Absolute Lymphocytes 0.6 Absolute Monocytes 0.1 Absolute Eosinophils 0.0 Absolute Basophils 0.0 Sodium 137.8 Potassium 4.0 Chloride 108 H Carbon Dioxide 20 L Anion Gap 10 BUN 10 Creatinine 0.47 L Est GFR ( Amer) > 60 Est GFR (Non-Af Amer) > 60 Glucose 124 H Calcium 8.5 Total Bilirubin 0.2 AST 15 ALT 23 Alkaline Phosphatase 65 Total Protein 5.9 L Albumin 3.5 Impressions: Chest X-Ray 09/20/18 12:52 IMPRESSION: NO ACUTE RADIOGRAPHIC FINDING IN THE CHEST. KUB X-Ray 09/20/18 14:27 IMPRESSION: NASOGASTRIC TUBE IN THE STOMACH. NO RADIOGRAPHIC EVIDENCE FOR ACU TE ABDOMINAL DISEASE. 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 She has been on steroids, antihistamines, and received some epinephrine. Currently showing no signs of distress. She was electively intubated at her request. Now she does not want to come off the ventilator. We are weaning her sedation as tolerated. If her respiratory indicators look good when sedation is weaned and she is on minimal settings, anticipate that she will be able to be extubated without any difficulty. (2) Bipolar disorder Qualifiers: Active/Remission status: remission status unspecified Qualified Code(s): F31.9 - Bipolar disorder, unspecified Is this a current diagnosis for this admission?: Yes Plan: We will hold home medications for now since she is n.p.o. we will resume once she is extubated. - Time Time Spent with patient: 25-34 minutes
[2018-09-21] MEDS: MORPHINE SULFATE 10 MG/ML INJ IV PRN ×2 (17:22→21:46)
[2018-09-21] MEDS: TRAZODONE HCL 50 MG TABLET PO SCH (21:46)
[2018-09-21] MEDS: BUPROPION HCL 75 MG TABLET PO SCH (21:47)
[2018-09-21] MEDS: LAMOTRIGINE 100 MG TABLET PO SCH (21:51)
[2018-09-22] MEDS: NORMAL SALINE 1000 ML 1,000 ML IV PRN ×3 (00:21→19:03)
[2018-09-22] MEDS: DIPHENHYDRAMINE HCL 50 MG/ML VIAL IV PRN ×5 (00:21→23:42)
[2018-09-22] MEDS: PROPOFOL 1,000 MG/100 ML INFUS..BTL IV PRN ×3 (03:32→09:47)
[2018-09-22] MEDS: METHYLPREDNISOLONE INJ 125 MG/2 ML SDV IV SCH ×3 (05:23→21:56)
--- NOTE | 2018-09-22 08:23 | RADIOLOGY REPORT (SQ) ---
EXAM DESCRIPTION: CHEST SINGLE VIEW COMPLETED DATE/TIME: 09/22/2018 6:39 am REASON FOR STUDY: Anaphlaxis COMPARISON: 09/20/2018 EXAM PARAMETERS: NUMBER OF VIEWS: One view. TECHNIQUE: Single frontal radiographic view of the chest acquired. RADIATION DOSE: NA LIMITATIONS: None. FINDINGS: LUNGS AND PLEURA: No opacities, masses or pneumothorax. No pleural effusion. MEDIASTINUM AND HILAR STRUCTURES: No masses. Contour normal. HEART AND VASCULAR STRUCTURES: Heart normal in size. Normal vasculature. BONES: No acute findings. HARDWARE: Endotracheal tube overlies proximal thoracic trachea, 6.6 cm above the jazmin. Enteric tub e tip below diaphragm but excluded by collimation. Side port distal to the GE junction. OTHER: No other significant finding. IMPRESSION: Mild retraction of the endotracheal tube with tip 6.6 cm above the jazmin. No other evidence of acute intrathoracic process. TECHNICAL DOCUMENTATION: JOB ID: [id number] [employer]- All Rights Reserved Reading location - IP/workstation name: [email or web address]
[2018-09-22] MEDS: ENOXAPARIN SODIUM INJ 40 MG/0.4 ML DISP.SYRIN SUBCUT SCH (09:47)
[2018-09-22] MEDS: BUPROPION HCL 75 MG TABLET PO SCH ×2 (09:47→21:56)
[2018-09-22] MEDS ORDERED: BUPROPION HCL 75 MG TABLET PO SCH (10:00)
[2018-09-22] MEDS ORDERED: DEXAMETHASONE SOD PHOSPHATE INJ 4 MG/1 ML VIAL IV ONE (14:00)
--- NOTE | 2018-09-22 16:15 | PDOC PROGRESS REPORT ---
Subjective Progress Note for:: 09/22/18 Subjective:: No adverse events overnight. No new complaints. Vital signs been stable. She is been doing very well on the ventilator, with very low pressures and low respiratory rate. She is been pulling good tidal volumes without any significant effort. Reason For Visit: ANAPHYLAXIS Physical Exam Vital Signs: Temp Pulse Resp BP Pulse Ox 98.4 F 58 L 18 141/88 H 100 09/22/18 14:00 09/22/18 14:00 09/22/18 14:00 09/22/18 14:00 09/22/18 14:00 Intake & Output 09/21/18 09/22/18 09/23/18 06:59 06:59 06:59 Intake Total 1251 3026 1128 Output Total 540 3210 515 Balance 711 -184 613 Weight 51.5 kg 53.8 kg General appearance: PRESENT: no acute distress, disheveled, other - Sedated, intubated Respiratory exam: PRESENT: clear to auscultation rudi, symmetrical, unlabored. ABSENT: accessory muscle use, chest wall tenderness, crackles, prolonged expiratory phase, rales, rhonchi, tachypnea, wheezes Cardiovascular exam: PRESENT: RRR, +S1, +S2 Pulses: PRESENT: normal carotid pulses Vascular exam: PRESENT: normal capillary refill GI/Abdominal exam: PRESENT: normal bowel sounds, soft. ABSENT: distended, guarding, rebound, tenderness Extremities exam: ABSENT: clubbing, pedal edema Musculoskeletal exam: PRESENT: normal inspection. ABSENT: deformity Neurological exam: PRESENT: oriented to person, other - Sedated but will arouse to mild stimuli, intubated Skin exam: PRESENT: dry, warm Results Laboratory Results: 09/21/18 03:41 09/21/18 03:41 Impressions: KUB X-Ray 09/20/18 14:27 IMPRESSION: NASOGASTRIC TUBE IN THE STOMACH. NO RADIOGRAPHIC EVIDENCE FOR ACUTE ABDOMINAL DISEASE. Chest X-Ray 09/22/18 06:00 IMPRESSION: Mild retraction of the endotracheal tube with tip 6.6 cm above the jazmin. No other evidence of acute intrathoracic process. Assessment and Plan - Diagnosis (1) Anaphylaxis Qualifiers: Encounter type: initial encounter Qualified Code(s): T78.2XXA - Anaphylactic shock, unspecified, initial encounter Is this a current diagnosis for this admission?: Yes Plan: We are going to give her a dose of IV Decadron and a dose of IV Benadryl about 1/2-hour before we take her off the ventilator. We are weaning her sedation now. Plan to extubate later on today and then monitor her for signs of decompensation. All indicators currently suggest that extubation should be successful. (2) Bipolar disorder Qualifiers: Active/Remission status: remission status unspecified Qualified Code(s): F31.9 - Bipolar disorder, unspecified Is this a current diagnosis for this admission?: Yes Plan: We will hold home medications for now since she is n.p.o. we will resume once she is extubated. - Time Time Spent with patient: 25-34 minutes
[2018-09-22] MEDS: MORPHINE SULFATE 10 MG/ML INJ IV PRN ×2 (19:02→23:42)
[2018-09-22] MEDS: ACETAMINOPHEN SOLN 325 MG/10.15 ML UDCUP PO PRN (20:29)
[2018-09-22] MEDS: LAMOTRIGINE 100 MG TABLET PO SCH (21:55)
[2018-09-22] MEDS: TRAZODONE HCL 50 MG TABLET PO SCH (21:56)
--- NOTE | 2018-09-23 00:02 | EKG REPORT ---
SEVERITY:- NORMAL ECG - SINUS RHYTHM : Confirmed by: Dutch Chacon 23-Sep-2018 00:01:35
--- NOTE | 2018-09-23 00:02 | EKG REPORT ---
SEVERITY:- ABNORMAL ECG - SINUS TACHYCARDIA NONSPECIFIC T ABNORMALITIES, INFERIOR LEADS : Confirmed by: Dutch Chacon 23-Sep-2018 00:01:42
[2018-09-23] MEDS: ACETAMINOPHEN SOLN 325 MG/10.15 ML UDCUP PO PRN ×2 (01:16→09:01)
[2018-09-23] MEDS: MORPHINE SULFATE 10 MG/ML INJ IV PRN (04:12)
[2018-09-23] MEDS: DIPHENHYDRAMINE HCL 50 MG/ML VIAL IV PRN (04:13)
[2018-09-23] MEDS: METHYLPREDNISOLONE INJ 125 MG/2 ML SDV IV SCH (07:05)
[2018-09-23 10:05] VITALS: BP 128/102
--- NOTE | 2018-09-23 18:15 | PDOC DISCHARGE SUMMARY ---
General - Admit/Disc Date/PCP Admission Date/Primary Care Provider: 09/20/18 14:33 GALILEO POWELL PA-C Discharge Date: 09/23/18 - Discharge Diagnosis (1) Anaphylaxis Is this a current diagnosis for this admission?: Yes Summary: Thought to be due to mast cell activation syndrome. She was extubated without any difficulty whatsoever despite her severe apprehension. She was already taking a couple of antihistamines at home which she will continue. We have added Singulair and inhaled cromolyn. She has follow-up at [facility] with a specialist. (2) Bipolar disorder Is this a current diagnosis for this admission?: Yes Summary: We will continue her home medications - Additional Information Resuscitation Status: Full Code Discharge Diet: Regular Discharge Activity: Activity As Tolerated Prescriptions: Cromolyn Sodium [Intal Neb 20 mg/2 ml Ampul] 20 mg IH QID #120 ampul.neb Epinephrine [Epipen] 0.3 mg IJ ASDIR PRN #1 auto.injct PRN Reason: For Wheezing Montelukast Sodium [Singulair] 10 mg PO DAILY #30 tablet Nebulizer [Nebulizer Machine] 1 each MC ASDIR PRN #1 kit PRN Reason: Home Medications: Bupropion HCl [Wellbutrin 75 mg Tablet] 75 mg PO BID 09/20/18 Ibuprofen [Motrin 800 mg Tablet] 800 mg PO BIDP PRN 09/20/18 Lamotrigine [Lamictal] 200 mg PO QHS 09/20/18 Trazodone HCl [Desyrel] 200 mg PO QHS 09/20/18 Cromolyn Sodium [Intal Neb 20 mg/2 ml Ampul] 20 mg IH QID #120 ampul.neb 09/23/18 Epinephrine [Epipen] 0.3 mg IJ ASDIR PRN #1 auto.injct 09/23/18 Montelukast Sodium [Singulair] 10 mg PO DAILY #30 tablet 09/23/18 Nebulizer [Nebulizer Machine] 1 each MC ASDIR PRN #1 kit 09/23/18 History of Present Illness History of Present Illness: BERNICE DAVENPORT is a 27 year old female with past medical history of mast cell activation syndrome with anaphylaxis presented to [facility]'s emergency room earlier this morning with complaints of throat tightness and swelling. Patient denied exposure to any known allergens. She did give herself an injection of her EpiPen prior to calling 911. EMS found her mildly tachypneic but otherwise in no respiratory distress. She was given IV Pepcid, Solu-Medrol and Benadryl in route to the hospital. Upon her arrival she was stating she continued to feel better but not normal. She was evaluated by the emergency room provider Dr. Lyons. She was found to have no stridor and normal oxygen saturations on room air. Because of her continued complaints however, after discussion with her family, it was decided to electively intubate her overnight and treat her for possible anaphylaxis. Anesthesia was called and she was electively intubated without difficulty. She was referred to the hospitalist service for admission. Her remains at bedside. He states she has been intubated 9 or 10 times in the past for the same. Hospital Course Hospital Course: She was on a hefty dose of dipper Van was still able to wake up and expressed her desire not to be extubated. Her weaning trial was excellent and she was extubated without difficulty. She was put on medications as noted above. She has follow-up with specialist as noted above. Her labs and examination were reassuring and she was discharged in good condition. Physical Exam Vital Signs: Temp Pulse Resp BP Pulse Ox 99.3 F 58 L 16 128/102 H 97 09/23/18 12:26 09/23/18 12:26 09/23/18 12:26 09/23/18 12:26 09/23/18 12:26 Intake & Output 09/22/18 09/23/18 09/24/18 06:59 06:59 06:59 Intake Total 3026 2628 Output Total 3210 3320 225 Balance -184 -762 -225 Weight 53.8 kg 52.8 kg General appearance: PRESENT: no acute distress, cooperative, disheveled Respiratory exam: PRESENT: clear to auscultation rudi, symmetrical, unlabored. ABSENT: accessory muscle use, chest wall tenderness, crackles, prolonged expiratory phas, rhonchi, stridor, tachypnea, wheezes Cardiovascular exam: PRESENT: RRR, +S1, +S2 Pulses: PRESENT: normal carotid pulses Vascular exam: PRESENT: normal capillary refill GI/Abdominal exam: PRESENT: normal bowel sounds, soft. ABSENT: distended, guarding, rebound, tenderness Extremities exam: ABSENT: clubbing, pedal edema Musculoskeletal exam: PRESENT: normal inspection. ABSENT: deformity Neurological exam: PRESENT: alert, awake, oriented to person, oriented to place, oriented to situation Psychiatric exam: PRESENT: anxious Skin exam: PRESENT: dry, warm Results Laboratory Results: 09/21/18 03:41 09/21/18 03:41 09/22/18 18:47 Troponin I < 0.012 Impressions: KUB X-Ray 09/20/18 14:27 IMPRESSION: NASOGASTRIC TUBE IN THE STOMACH. NO RADIOGRAPHIC EVIDENCE FOR ACUTE ABDOMINAL DISEASE. Chest X-Ray 09/22/18 06:00 IMPRESSION: Mild retraction of the endotracheal tube with tip 6.6 cm above the jazmin. No other evidence of acute intrathoracic process. Qualifiers - * PATIENT BEING DISCHARGED WITH ANY OF THE FOLLOWING DIAGNOSIS: No Acute Heart Failure - Is this a Heart Failure Patient?: No Plan Time Spent: Greater than 30 Minutes
== END 2018-09-23 13:23 | disposition home or self-care (01) | DRG 916 ==
LOC: ER 12:44 → OBSVTOIN 14:33 → INTOOBSV 14:33 → EH 14:33 → ICU 18:14
PROVIDERS: ADMIT Internal Medicine; ATTEND Family Medicine
PROC: 0BH17EZ Insertion of Endotracheal Airway into Trachea, Via Natural or Artificial Opening (ICD-10-PCS; principal; 2018-09-20)
PROC: 5A1945Z Respiratory Ventilation, 24-96 Consecutive Hours (ICD-10-PCS; 2018-09-20)
DX: T78.2XXA Anaphylactic shock, unspecified, initial encounter (principal); F31.9 Bipolar disorder, unspecified; D89.40 Mast cell activation, unspecified; Z88.1 Allergy status to other antibiotic agents; Z88.0 Allergy status to penicillin; Z91.040 Latex allergy status; Z88.2 Allergy status to sulfonamides; Z88.8 Allergy status to other drugs, medicaments and biological substances; Z91.018 Allergy to other foods; I25.2 Old myocardial infarction; Z90.49 Acquired absence of other specified parts of digestive tract; Z79.899 Other long term (current) drug therapy; Z82.3 Family history of stroke
CPT/HCPCS: 31500; 36415; 71045; 74018; 80053; 81001; 81025; 84484; 85025; 93005; 93010; 94002; 94003; 94660; 96374; 99291; J1100; J1200; J1650; J2060; J2270; J2704; J2930; J3490; J7030